=== PATIENT | female | born 1950 | race Caucasian/White ===

== ENCOUNTER → 2018-05-07 | Outpatient (CLI) | payer MEDICARE ==
[2018-05-07 13:45] LABS: Basophils % (A) 1 %; Eosinophils # (A) 0.2 k/uL (0-0.7); Eosinophils % (A) 3 %; HCT 31.9 % (34.0-46.0); HGB 10.4 gm/dL (11.4-16.0); Lymphocytes # (A) 1.6 k/uL (1.0-4.8); Lymphocytes % (A) 27 %; MCHC 32.7 g/dL (31.0-37.0); MCV 91.8 fL (80.0-100.0); Mean Platelet Volume 6.4; Monocytes # (A) 0.4 k/uL (0-1.0); Monocytes % (A) 7 %; Neutrophils # (A) 3.5 k/uL (1.3-7.7); Neutrophils % (A) 60 %; Platelet Count 358 k/uL (150-450); RBC 3.48 m/uL (3.80-5.40); RDW 12.6 % (11.5-15.5); WBC 5.9 k/uL (3.8-10.6)
[2018-05-07 19:30] LABS: Vitamin D 25 Hydroxy 57.9 ng/mL (30.0-100.0)
[2018-05-07 19:56] LABS: ALT 16 U/L (8-44); AST 21 U/L (13-35); Alkaline Phosphatase 76 U/L (41-126); Calcium 9.3 mg/dL (8.7-10.3); Carbon Dioxide 27.5 mmol/L (21.6-31.8); Chloride 107 mmol/L (96-109); Cholesterol 146 mg/dL (0-200); GGT <15 U/L (0-38); Glucose 98 mg/dL (70-110); LDH 129 U/L (120-246); LDL Cholesterol,Calculated 77.6 mg/dL (0.0-131.0); Phosphorus 3.5 mg/dL (2.4-5.1); Potassium 4.5 mmol/L (3.5-5.5); Sodium 141 mmol/L (135-145); Total Bilirubin 0.4 mg/dL (0.3-1.2); Total Protein 6.8 g/dL (6.2-8.2)
[2018-05-07 22:14] LABS: Hemoglobin A1C 6.1 % (4.0-6.0)
== END ==
LOC: LABWHC1 11:50
PROVIDERS: ATTEND Family Medicine
DX: Z00.00 Encounter for general adult medical examination without abnormal findings (principal); G30.9 Alzheimer's disease, unspecified; F41.9 Anxiety disorder, unspecified; J45.909 Unspecified asthma, uncomplicated; E11.9 Type 2 diabetes mellitus without complications; E55.9 Vitamin D deficiency, unspecified
CPT/HCPCS: 36415; 80051; 80061; 82247; 82306; 82310; 82565; 82607; 82947; 82977; 83036; 83615; 84075; 84100; 84155; 84439; 84443; 84450; 84460; 84520; 84550; 85025

== ENCOUNTER → 2018-05-21 | Outpatient (CLI) | payer MEDICARE ==
[2018-05-21 13:12] LABS: Basophils % (A) 0 %; Eosinophils # (A) 0.1 k/uL (0-0.7); Eosinophils % (A) 2 %; HCT 33.3 % (34.0-46.0); HGB 10.6 gm/dL (11.4-16.0); Lymphocytes # (A) 2.1 k/uL (1.0-4.8); Lymphocytes % (A) 30 %; MCH 29.5 pg (25.0-35.0); MCHC 31.9 g/dL (31.0-37.0); MCV 92.5 fL (80.0-100.0); Mean Platelet Volume 6.4; Monocytes # (A) 0.4 k/uL (0-1.0); Monocytes % (A) 6 %; Neutrophils % (A) 59 %; Platelet Count 315 k/uL (150-450); RDW 12.8 % (11.5-15.5); WBC 6.9 k/uL (3.8-10.6)
[2018-05-21 19:53] LABS: Iron Saturation 22.29 (12.00-45.00)
[2018-05-21 20:23] LABS: Folate, Serum >24.0 ng/mL
== END ==
LOC: LABWHC1 11:40
PROVIDERS: ATTEND Family Medicine
DX: D64.9 Anemia, unspecified (principal)
CPT/HCPCS: 36415; 82607; 82746; 83540; 83550; 84466; 85025

== ENCOUNTER → 2019-01-05 | Outpatient (CLI) | payer MEDICARE ==
[2019-01-05 11:43] LABS: HGB 10.9 gm/dL (11.4-16.0); MCH 32.1 pg (25.0-35.0); MCHC 34.2 g/dL (31.0-37.0); Mean Platelet Volume 5.8; Platelet Count 327 k/uL (150-450); RBC 3.41 m/uL (3.80-5.40); RDW 12.6 % (11.5-15.5); WBC 7.7 k/uL (3.8-10.6)
[2019-01-05 22:59] LABS: Albumin 4.6 g/dL (3.80-4.90); Albumin/Globulin Ratio 2.09 (1.60-3.17); Anion Gap 9.7 mmol/L (4.00-12.00); Calcium 10.1 mg/dL (8.7-10.3); Carbon Dioxide 27.3 mmol/L (21.6-31.8); Chol/HDL Ratio 2.83; Globulin 2.2 g/dL (1.6-3.3); Potassium 4.4 mmol/L (3.5-5.5); Total Bilirubin 0.5 mg/dL (0.3-1.2); Total Protein 6.8 g/dL (6.2-8.2)
[2019-01-07 12:15] LABS: Hemoglobin A1C 6.1 % (4.0-6.0)
== END | disposition home or self-care (01) ==
LOC: LABWHC1 11:04
PROVIDERS: ATTEND Family Medicine
DX: E11.9 Type 2 diabetes mellitus without complications (principal); E78.5 Hyperlipidemia, unspecified
CPT/HCPCS: 36415; 80053; 80061; 83036; 85027

== ENCOUNTER → 2019-02-28 | Outpatient (CLI) | payer MEDICARE ==
--- NOTE | 2019-02-28 12:27 | MR ---
EXAMINATION TYPE: MR brain wo/w con DATE OF EXAM: 02/28/2019 12:16 PM COMPARISON: NONE HISTORY: Alzheimers CONTRAST: Patient received 8.5 mL intravenous Gadavist gadolinium contrast. Multiplanar and multispin-echo imaging of the brain was performed . Pre and post contrast enhanced i mages are obtained. The ventricles, basal cisterns and sulci overlying the cerebral convexities are mildly enlarged. There is evidence of mild periventricular white matter ischemic demyelination. Remote deep white matter insults are also noted. No acute edema is seen on diffusion weighted imaging. There is no evidence for midline shift or mass effect. Acute intracranial hemorrhage or extra-axial collection is not evident. No enhancing lesions are seen. The paranasal sinuses and mastoid air cells are well-aerated. IMPRESSION: Age-related atrophic and chronic small vessel ischemic change. No acute intracranial process at this time. No enhancing lesions are seen.
== END ==
LOC: RADMRIMAIN 11:31 → EEVIPCON 11:45
PROVIDERS: ATTEND Psychiatry & Neurology Neurology
DX: G31.1 Senile degeneration of brain, not elsewhere classified (principal); I67.82 Cerebral ischemia
CPT/HCPCS: 70553; A9585

== ENCOUNTER 2019-03-08 05:27 | Emergency (ER) | payer MEDICARE ==
[2019-03-08 05:34] VITALS: RESP 20
--- NOTE | 2019-03-08 06:10 | ED ---
Fall HPI - General Chief Complaint: Fall Stated Complaint: Fall Time Seen by Provider: 03/08/19 05:50 Source: patient, EMS Mode of arrival: EMS Limitations: no limitations - History of Present Illness Initial Comments: 68-year-old female presents emergency Department with chief complaint of fall. Patient states she was getting out of her bed states that she misjudged fell striking her head on the nightstand. Patient hit the posterior aspect of her head there was no loss conscious. Patient does admit that she has pain and the backs ever had in the left side of her head and face. She states there is no trauma to her face. Patient denies any extremity injuries. She does admit that she takes aspirin and states that she's had history of 2 cerebral bleeds in the past. Patient denies any chest pain, shortness breath, dizziness, nausea vomiting. - Related Data Home Medications Medication Instructions Recorded Confirmed ALPRAZolam [Xanax] 0.5 mg PO TID PRN 11/23/17 11/23/17 ARIPiprazole [Abilify] 5 mg PO DAILY 11/23/17 11/23/17 Albuterol Inhaler [Ventolin Hfa 1 - 2 puff INHALATION RT-Q6H PRN 11/23/17 11/23/17 Inhaler] Albuterol Nebulized [Ventolin 2.5 mg INHALATION RT-Q4H PRN 11/23/17 11/23/17 Nebulized] Ascorbic Acid [Vitamin C] 500 mg PO DAILY 11/23/17 11/23/17 Aspirin [Adult Low Dose Aspirin EC] 81 mg PO DAILY 11/23/17 11/23/17 Atorvastatin Calcium [Lipitor] 20 mg PO HS 11/23/17 11/23/17 Butalb/Acetaminophen/Caffeine 1 cap PO Q4H PRN 11/23/17 11/23/17 [Esgic 50-325-40 Capsule] Carvedilol [Coreg] 3.125 mg PO BID 11/23/17 11/23/17 Cholecalciferol (Vitamin D3) 2,000 unit PO DAILY 11/23/17 11/23/17 [Vitamin D3] Cyanocobalamin (Vitamin B-12) 2,000 mcg PO DAILY 11/23/17 11/23/17 [Vitamin B-12] Donepezil [Aricept] 10 mg PO HS 11/23/17 11/23/17 EPINEPHrine (Auto Inject) [Epipen] 0.3 mg IM ONCE PRN 11/23/17 11/23/17 Fluticasone Nasal Mertens [Flonase 1 spray EA NOSTRIL DAILY 11/23/17 11/23/17 Nasal Mertens] Gabapentin [Neurontin] 300 mg PO TID 11/23/17 11/23/17 Isosorbide Mononitrate [Isosorbide 30 mg PO DAILY 11/23/17 11/23/17 Mononitrate ER] Meclizine HCl 50 mg PO DAILY PRN 11/23/17 11/23/17 Memantine [Namenda] 10 mg PO DAILY 11/23/17 11/23/17 Multivit/Folic Acid/Vit K1 1 tab PO DAILY 11/23/17 11/23/17 [One-A-Day Women's 50 Plus Tab] NIFEdipine [Procardia XL] 60 mg PO DAILY 11/23/17 11/23/17 Pioglitazone [Actos] 15 mg PO DAILY 11/23/17 11/23/17 QUEtiapine [SEROquel] 50 mg PO Q6H PRN 11/23/17 11/23/17 Valsartan/Hydrochlorothiazide 1 tab PO DAILY 11/23/17 11/23/17 [Valsartan-Hctz 320-25 mg Tab] buPROPion HCL [Wellbutrin SR] 150 mg PO BID 11/23/17 11/23/17 lamoTRIgine 150 mg PO BID 11/23/17 11/23/17 metFORMIN HCL [Glucophage] 1,000 mg PO BID-W/MEALS 11/23/17 11/23/17 traMADol HCL [Ultram] 50 mg PO Q6H PRN 11/23/17 11/23/17 Previous Rx's Medication Instructions Recorded Ciprofloxacin HCl [Cipro] 500 mg PO Q12H #20 tab 11/27/17 Allergies Allergy/AdvReac Type Severity Reaction Status Date / Time amoxicillin [From Augmentin] Allergy Swelling Verified 03/08/19 05:34 clavulanic acid Allergy Swelling Verified 03/08/19 05:34 [From Augmentin] codeine Allergy Swelling Verified 03/08/19 05:34 Sulfa (Sulfonamide Allergy Rash/Hives Verified 03/08/19 05:34 Antibiotics) tree nut [Nut] Allergy Anaphylaxis Verified 03/08/19 05:34 Review of Systems ROS Statement: Those systems with pertinent positive or pertinent negative responses have been documented in the HPI. ROS Other: All systems not noted in ROS Statement are negative. Past Medical History Past Medical History: Asthma, Dementia, Diabetes Mellitus, Hypertension Additional Past Medical History / Comment(s): tremors, pancreatitis History of Any Multi-Drug Resistant Organisms: None Reported Past Surgical History: Appendectomy, Hysterectomy Additional Past Surgical History / Comment(s): neck surgery Past Anesthesia/Blood Transfusion Reactions: No Reported Reaction Past Psychological History: Anxiety, Depression Smoking Status: Never smoker Past Alcohol Use History: Rare Past Drug Use History: None Reported - Past Family History Mother History Unknown: Yes General Exam Limitations: no limitations General appearance: alert, in no apparent distress Head exam: Present: atraumatic, normocephalic, normal inspection Eye exam: Present: normal appearance, PERRL, EOMI. Absent: scleral icterus, conjunctival injection, periorbital swelling ENT exam: Present: normal exam, normal oropharynx, mucous membranes moist, TM's normal bilaterally Neck exam: Present: normal inspection. Absent: tenderness, meningismus, full ROM (patient in c-collar), lymphadenopathy Respiratory exam: Present: normal lung sounds bilaterally. Absent: respiratory distress, wheezes, rales, rhonchi, stridor Cardiovascular Exam: Present: regular rate, normal rhythm, normal heart sounds. Absent: systolic murmur, diastolic murmur, rubs, gallop, clicks Extremities exam: Present: normal inspection, full ROM, normal capillary refill. Absent: tenderness, pedal edema, joint swelling, calf tenderness Back exam: Present: full ROM. Absent: tenderness, paraspinal tenderness, vertebral tenderness Neurological exam: Present: alert, oriented X3, CN II-XII intact, reflexes normal. Absent: motor sensory deficit Skin exam: Present: warm, dry, intact, normal color. Absent: rash Course Vital Signs 03/08/19 05:28 Temperature 97.7 F Pulse Rate 76 Respiratory 20 Rate Blood Pressure 165/69 O2 Sat by Pulse 99 Oximetry Medical Decision Making - Medical Decision Making CT of the brain, C-spine and negative for acute findings. Patient is not cleari ng intact. Patient will be discharged in stable condition with close follow-up return parameters were discussed. Disposition Clinical Impression: Fall, Head injury Disposition: HOME SELF-CARE Condition: Stable Instructions (If sedation given, give patient instructions): Head Injury (ED) Additional Instructions: Please return to the Emergency Department if symptoms worsen or any other concerns. Is patient prescribed a controlled substance at d/c from ED?: No Referrals: None,Stated [REFERRING] - 1-2 days Time of Disposition: 07:10
--- NOTE | 2019-03-08 06:49 | CT ---
CT HEAD WITHOUT CONTRAST INDICATION: Pain TECHNIQUE: CT acquisition is performed through the brain and cervical spine. Sagittal and coronal reformatted images are provided. No IV contrast is administered. DOSE INFORMATION: DLP 1373 mGy-cm. This CT exam was performed using one or more of the following dose reduction techniques: automated exposure control, adjustment of the mA and/or kV according to patient size, and/or use of iterative reconstruction technique. COMPARISON: MRI brain 02/28/19. FINDINGS: CT head: There is no evidence of acute intracranial hemorrhage. There is a stable 3.8 x 2.5 cm arachnoid cyst in the left middle cranial fossa. There is no midline shift. The crump-white matter differentiation is preserved. Sulci, ventricles, and basal cisterns are normal in size and configuration for patient age. Patchy hypoattenuation in the cerebral white matter is compatible with mild chronic small vessel ischemic disease. The calvarium is intact. The visualized paranasal sinuses and mastoid air cells are clear. CT C-spine: There is straightening of the cervical spine with preservation of vertebral body height and alignment. There is no acute fracture or subluxation. There are degenerative changes at the craniocervical junction and involving the anterior C1-C2 articulation. The patient is status post anterior cervical discectomy and fusion at C4-C5 and C5-C6. There is moderate degenerative disc disease at C6-C7 and C7-T1. There is multilevel facet arthropathy and uncovertebral joint degeneration. There is no high-grade central spinal canal narrowing. There are varying degrees of mild bilateral foraminal narrowing, greatest on the right C5- C6. Prevertebral soft tissues are normal. Lung apices are clear. IMPRESSION: 1. CT head: No evidence of acute intracranial process. 2. CT C-spine: No acute osseous findings.
[2019-03-08 09:31] VITALS: BP 147/78; PULSE 70; TEMP 98.2
== END 2019-03-08 09:31 | disposition home or self-care (01) ==
LOC: EC 05:27
DX: S09.90XA Unspecified injury of head, initial encounter (principal); J45.909 Unspecified asthma, uncomplicated; F03.90 Unspecified dementia, unspecified severity, without behavioral disturbance, psychotic disturbance, mood disturbance, and anxiety; E11.9 Type 2 diabetes mellitus without complications; I10 Essential (primary) hypertension; F32.9 Major depressive disorder, single episode, unspecified; F41.9 Anxiety disorder, unspecified; Z88.0 Allergy status to penicillin; Z88.2 Allergy status to sulfonamides; Z88.5 Allergy status to narcotic agent; Z91.018 Allergy to other foods; Z79.51 Long term (current) use of inhaled steroids; Z79.82 Long term (current) use of aspirin; Z79.84 Long term (current) use of oral hypoglycemic drugs; Z79.899 Other long term (current) drug therapy; Z86.79 Personal history of other diseases of the circulatory system; W06.XXXA Fall from bed, initial encounter; Y93.89 Activity, other specified; Y92.009 Unspecified place in unspecified non-institutional (private) residence as the place of occurrence of the external cause
CPT/HCPCS: 70450; 72125; 99283

== ENCOUNTER → 2020-09-07 | Outpatient (CLI) | payer MEDICARE ==
--- NOTE | 2020-09-07 15:49 | MR ---
EXAMINATION TYPE: MR brain wo/w con DATE OF EXAM: 09/07/2020 COMPARISON: MR brain 02/28/2019 HISTORY: Parkinson's Disease, Alzheimer's Disease, early onset TECHNIQUE: Multiplanar, multisequence images of the brain and brainstem is performed without and with IV contras t, utilizing 7.5 mL intravenous Gadavist . FINDINGS: Diffusion weighted images demonstrate no evidence of a recent infarct or other diffusion ab normality. There is CSF signal focus along the anterior aspect of the middle cranial fossa on the le ft likely representing an arachnoid cyst as on prior exam, lesion measures 4.1 x 2.4 x 3.2 cm. Scatt ered and confluent pericallosal, subcortical and periventricular white matter hyperintensities on inv ersion recovery T2-weighted sequences are again seen similar to prior exam. The ventricular system an d cisternal spaces are normal in size and appearance. The brain volume is stable, small focal area o f encephalomalacia present within the basal ganglia as on prior. Midline structures demonstrate normal morphology. The craniocervical junction appears within normal limits. Post contrast images demonstrate no abnormal enhancement. The dural venous sinuses appear pa tent. The visualized sinuses are clear and the globes are intact. IMPRESSION: No significant interval change. Age-related changes of atrophy and probable chronic small vessel ischemia. Probable arachnoid cyst is stable.
== END | disposition home or self-care (01) ==
LOC: RADMRIMAIN 09:46
PROVIDERS: ATTEND Psychiatry & Neurology Neurology
DX: G20 Parkinson's disease (principal); G30.0 Alzheimer's disease with early onset
CPT/HCPCS: 70553; A9585

== ENCOUNTER 2021-06-16 09:02 | Observation (INO) | payer MEDICARE ==
[2021-06-16] MEDS ORDERED: MECLIZINE 12.5 MG TAB PO STA ×2 (09:20→10:31)
[2021-06-16] MEDS ORDERED: SODIUM CHLORIDE 0.9% 1,000 ML IV STA (09:20)
[2021-06-16] MEDS ORDERED: ONDANSETRON 4 MG/2 ML VIAL IVP STA (09:20)
[2021-06-16] MEDS ORDERED: METOCLOPRAMIDE 5 MG/ML 2 ML VIAL IVP STA (10:31)
[2021-06-16 10:41] LABS: Basophils % (A) 0 %; Eosinophils % (A) 0 %; HCT 32.8 % (34.0-46.0); HGB 11.1 gm/dL (11.4-16.0); Lymphocytes # (A) 0.5 k/uL (1.0-4.8); Lymphocytes % (A) 4 %; MCH 31.8 pg (25.0-35.0); MCV 93.8 fL (80.0-100.0); Mean Platelet Volume 6.7; Monocytes # (A) 0.8 k/uL (0-1.0); Monocytes % (A) 7 %; Neutrophils # (A) 10.5 k/uL (1.3-7.7); Neutrophils % (A) 88 %; Platelet Count 386 k/uL (150-450); RBC 3.49 m/uL (3.80-5.40); RDW 12.8 % (11.5-15.5)
[2021-06-16 10:53] LABS: Albumin 3.8 g/dL (3.5-5.0); Calcium 9.6 mg/dL (8.4-10.2); Potassium 5.2 mmol/L (3.5-5.1); Total Protein 6.6 g/dL (6.3-8.2)
[2021-06-16 11:06] LABS: Toxic Granulation Present
[2021-06-16 11:07] LABS: RBC Morphology Normal
--- NOTE | 2021-06-16 11:29 | CT ---
EXAMINATION TYPE: CT brain wo con DATE OF EXAM: 06/16/2021 COMPARISON: CT dated 03/08/2019 and MRI dated 09/07/2020 HISTORY: Vertigo. CT DLP: 1080.4 mGycm Automated exposure control for dose reduction was used. TECHNIQUE: CT scan of the brain is performed without IV contrast administration. FINDINGS: Persistent sizable arachnoid cyst is seen at the anterior aspect of the left middle cranial fossa ilda suring 22 x 40 x 35 mm and causing compression of the adjacent portion of the left temporal lobe. No obvious uncal herniation. Arterial atherosclerotic calcification most evident involving the V4 segmen ts of the vertebral arteries and the cavernous portions of the internal carotid arteries. No acute intracranial hemorrhage. No gross acute cortical infarct. No midline shift, herniation or ve ntriculomegaly. Unremarkable basal cisterns, sella and CP angles. Unremarkable orbits. Clear visualiz ed paranasal sinuses and mastoid air cells. No aggressive bone lesion. IMPRESSION: Persistent large arachnoid cyst at the anterior aspect of the left middle cranial fossa with mass eff ect on the left temporal lobe as described above. This could be the underlying etiology for the patie nt's complaint. Recommend further elective neurosurgical consultation if not already performed. No other significant intracranial abnormality identified.
--- NOTE | 2021-06-16 11:36 | ED ---
Dizziness HPI - General Chief Complaint: Dizziness Stated Complaint: vertigo Time Seen by Provider: 06/16/21 09:16 Source: patient, EMS, RN notes reviewed Mode of arrival: EMS Limitations: no limitations - History of Present Illness Initial Comments: This a 71-year-old female presents emergency Department with chief complaint chief complaint of severe vertigo. Patient has a history of vertigo states that it's a chronic issue. Patient states today though it is unbearable and states that it's very difficult to ambulate. Patient states that she does see neurology for her Alzheimer's disease, patient has have underlying daily vertigo.. Patient states that she's been very thirsty, decreased oral intake. She states that she feels dehydrated. Denies any vomiting or diarrhea. Patient denies any chest pain shortness breath or palpitations. - Related Data Home Medications Medication Instructions Recorded Confirmed ALPRAZolam [Xanax] 0.5 mg PO DAILY PRN 11/23/17 06/16/21 Ascorbic Acid [Vitamin C] 500 mg PO DAILY 11/23/17 06/16/21 Aspirin [Adult Low Dose Aspirin EC] 81 mg PO HS 11/23/17 06/16/21 Atorvastatin Calcium [Lipitor] 20 mg PO HS 11/23/17 06/16/21 Carvedilol [Coreg] 3.125 mg PO BID 11/23/17 06/16/21 Cyanocobalamin (Vitamin B-12) 1,000 mcg PO DAILY 11/23/17 06/16/21 [Vitamin B-12] Donepezil [Aricept] 10 mg PO HS 11/23/17 06/16/21 EPINEPHrine (Auto Inject) [Epipen] 0.3 mg IM ONCE PRN 11/23/17 06/16/21 Gabapentin [Neurontin] 300 mg PO BID 11/23/17 06/16/21 Memantine [Namenda] 10 mg PO HS 11/23/17 06/16/21 Multivit/Folic Acid/Vit K1 1 tab PO DAILY 11/23/17 06/16/21 [One-A-Day Women's 50 Plus Tab] Pioglitazone [Actos] 15 mg PO DAILY 11/23/17 06/16/21 lamoTRIgine 150 mg PO BID 11/23/17 06/16/21 ARIPiprazole [Abilify] 10 mg PO HS 06/16/21 06/16/21 Albuterol Sulfate [Ventolin HFA] 1 - 2 puff INHALATION RT-Q4H PRN 06/16/21 06/16/21 Benztropine Mesylate 0.5 mg PO DAILY 06/16/21 06/16/21 Biotin 1000 Mcg 1,000 mcg PO DAILY@1700 06/16/21 06/16/21 Carbidopa-Levodopa 25-250 mg 1 tab PO TID 06/16/21 06/16/21 [Sinemet 25-250] Cholecalciferol [Vitamin D3 (25 50 mcg PO HS 06/16/21 06/16/21 Mcg = 1000 Iu)] Docusate [Colace] 100 mg PO BID 06/16/21 06/16/21 Ferrous Sulfate [Feosol] 325 mg PO HS 06/16/21 06/16/21 Irbesartan [Avapro] 300 mg PO DAILY@1400 06/16/21 06/16/21 Melatonin 3 mg PO HS 06/16/21 06/16/21 NIFEdipine [NIFEdipine ER] 90 mg PO DAILY@1400 06/16/21 06/16/21 Spironolactone 25 mg PO HS 06/16/21 06/16/21 buPROPion HCL [Wellbutrin XL] 300 mg PO DAILY 06/16/21 06/16/21 hydroCHLOROthiazide [Hydrodiuril] 25 mg PO DAILY 06/16/21 06/16/21 metFORMIN HCL [Glucophage] 1,000 mg PO BID@0800,1700 06/16/21 06/16/21 Allergies Allergy/AdvReac Type Severity Reaction Status Date / Time amoxicillin [From Augmentin] Allergy Swelling Verified 06/16/21 10:39 clavulanic acid Allergy Swelling Verified 06/16/21 10:39 [From Augmentin] codeine Allergy Swelling Verified 06/16/21 10:39 Penicillins Allergy Unknown Verified 06/16/21 10:39 saccharin Allergy Unknown Verified 06/16/21 10:39 Sulfa (Sulfonamide Allergy Rash/Hives Verified 06/16/21 10:39 Antibiotics) tree nut [Nut] Allergy Anaphylaxis Verified 06/16/21 10:39 Review of Systems ROS Statement: Those systems with pertinent positive or pertinent negative responses have been documented in the HPI. ROS Other: All systems not noted in ROS Statement are negative. Past Medical History Past Medical History: Asthma, Dementia, Diabetes Mellitus, Hypertension Additional Past Medical History / Comment(s): tremors, pancreatitis History of Any Multi-Drug Resistant Organisms: None Reported Past Surgical History: Appendectomy, Hysterectomy Additional Past Surgical History / Comment(s): neck surgery Past Anesthesia/Blood Transfusion Reactions: No Reported Reaction Past Psychological History: Anxiety, Depression Past Alcohol Use History: Rare Past Drug Use History: None Reported - Past Family History Mother History Unknown: Yes General Exam Limitations: no limitations General appearance: alert, in no apparent distress Head exam: Present: atraumatic, normocephalic, normal inspection Eye exam: Present: normal appearance, PERRL, EOMI. Absent: scleral icterus, conjunctival injection, periorbital swelling ENT exam: Present: normal exam, normal oropharynx, mucous membranes moist Neck exam: Present: normal inspection, full ROM. Absent: tenderness, meningismus, lymphadenopathy Respiratory exam: Present: normal lung sounds bilaterally. Absent: respiratory distress, wheezes, rales, rhonchi, stridor Cardiovascular Exam: Present: regular rate, normal rhythm, normal heart sounds. Absent: systolic murmur, diastolic murmur, rubs, gallop, clicks GI/Abdominal exam: Present: soft, normal bowel sounds. Absent: distended, tenderness, guarding, rebound, rigid Neurological exam: Present: alert, oriented X3, CN II-XII intact, reflexes normal. Absent: motor sensory deficit Skin exam: Present: warm, dry, intact, normal color. Absent: rash Course Vital Signs 06/16/21 06/16/21 09:09 10:24 Temperature 98.2 F Pulse Rate 82 80 Respiratory 18 18 Rate Blood Pressure 119/57 105/64 O2 Sat by Pulse 93 L 95 Oximetry Medical Decision Making - Medical Decision Making Patient has had persistent dizziness, she came in for increasing thirst and dizziness. Patient had multiple doses medication no relief. Patient CT shows persistent but no significant changes of her arachnoid cyst. She was updated on his results in which she's had prior MRI and CT but was not aware of this. Patient unable to get up without extreme dizziness I did discuss case with Dr. Baltazar who accepts admission for a Lul, dizziness. - Lab Data Result diagrams: 06/16/21 10:19 06/16/21 10:19 Lab Results 06/16/21 06/16/21 06/16/21 Range/Units 10:19 10:19 10:19 WBC 12.0 H (3.8-10.6) k/uL RBC 3.49 L (3.80-5.40) m/uL Hgb 11.1 L (11.4-16.0) gm/dL Hct 32.8 L (34.0-46.0) % MCV 93.8 (80.0-100.0) fL MCH 31.8 (25.0-35.0) pg MCHC 34.0 (31.0-37.0) g/dL RDW 12.8 (11.5-15.5) % Plt Count 386 (150-450) k/uL MPV 6.7 Neutrophils % 88 % Lymphocytes % 4 % Monocytes % 7 % Eosinophils % 0 % Basophils % 0 % Neutrophils # 10.5 H (1.3-7.7) k/uL Lymphocytes # 0.5 L (1.0-4.8) k/uL Monocytes # 0.8 (0-1.0) k/uL Eosinophils # 0.0 (0-0.7) k/uL Basophils # 0.0 (0-0.2) k/uL Manual Slide Review Performed Toxic Granulation Present RBC Morphology Normal Sodium 131 L (137-145) mmol/L Potassium 5.2 H (3.5-5.1) mmol/L Chloride 97 L (98-107) mmol/L Carbon Dioxide 25 (22-30) mmol/L Anion Gap 9 mmol/L BUN 44 H (7-17) mg/dL Creatinine 1.68 H (0.52-1.04) mg/dL Est GFR (CKD-EPI)AfAm 35 (>60 ml/min/1.73 sqM) Est GFR (CKD-EPI)NonAf 30 (>60 ml/min/1.73 sqM) Glucose 158 H (74-99) mg/dL Calcium 9.6 (8.4-10.2) mg/dL Total Bilirubin 1.0 (0.2-1.3) mg/dL AST 322 H (14-36) U/L ALT 23 (4-34) U/L Alkaline Phosphatase 126 (38-126) U/L Troponin I <0.012 (0.000-0.034) ng/mL Total Protein 6.6 (6.3-8.2) g/dL Albumin 3.8 (3.5-5.0) g/dL Disposition Clinical Impression: Acute kidney injury, Dehydration, Dizziness Disposition: ADMITTED IP TO THIS HOSP Condition: Fair Referrals: Marilee Rendon DO [Primary Care Provider] - 1-2 days Time of Disposition: 13:15
[2021-06-16] MEDS ORDERED: ONDANSETRON 4 MG/2 ML VIAL IVP PRN (13:16)
[2021-06-16] MEDS ORDERED: NALOXONE 0.4 MG/ML 1 ML VIAL IV PRN (13:16)
[2021-06-16] MEDS ORDERED: ACETAMINOPHEN TAB 325 MG TAB PO PRN (13:16)
[2021-06-16] MEDS ORDERED: ALPRAZolam 0.5 MG TAB PO PRN (13:18)
[2021-06-16] MEDS: metFORMIN 500 MG TAB PO SCH ×2 (16:04→16:05)
[2021-06-16] MEDS: NIFEdipine XL 90 MG TAB.ER.24 PO SCH (16:04)
[2021-06-16] MEDS: ARIPiprazole 10 MG TAB PO SCH (16:05)
[2021-06-16] MEDS: LOSARTAN 50 MG TAB PO SCH (16:05)
[2021-06-16] MEDS: carvediloL 3.125 MG TAB PO SCH (16:05)
[2021-06-16] MEDS: CARBIDOPA-LEVODOPA 25-250 MG 1 EACH TAB PO SCH ×2 (16:05→20:49)
[2021-06-16] MEDS: SODIUM CHLORIDE 0.9% 1,000 ML IV SCH (16:06)
[2021-06-16] MEDS ORDERED: ALBUTEROL NEBULIZED 2.5 MG/3 ML INHALATION PRN (16:37)
[2021-06-16] MEDS ORDERED: MECLIZINE 25 MG TAB PO PRN (16:52)
[2021-06-16] MEDS ORDERED: LORazepam 0.5 MG TAB PO PRN (16:52)
--- NOTE | 2021-06-16 16:54 | P.HPIM ---
History of Present Illness H&P Date: 06/16/21 Chief Complaint: Vertigo 71-year-old woman with a history of Alzheimer's dementia, arachnoid cyst in the brain, hypertension, diabetes, hyperlipidemia Parkinson's, reactive airway disease, depression presented with vertigo. Patient tells me that she's had vertigo for quite some time, however in the last 1-2 weeks it's been getting worse. It gets particularly worse with movement, specifically to the right side. In addition she's had loss of appetite in the last week. She has been able to keep up with her water intake, has trouble poopingconstipation. She does not have any trouble urinating or ambulating. She denies fevers, chills, nausea, vomiting, chest pain, palpitations, syncope, presyncope, abdominal pain, dysuria, dyschezia, diarrhea, numbness/weakness of extremities. In the emergency room, patient is afebrile, 119/57, heart rate 82, 93% on room air. CBC is remarkable for mild leukocytosis at 12, mild anemia at 11.1. Chemistries are remarkable for hyponatremia to 132, potassium of 5.2, chloride of 97. BUN/creatinine is 44/1.7, with a baseline of 1. LFTs are remarkable for an AST of 322, ALT of 23. Initial troponin is negative. EKG demonstrates normal sinus rhythm without ischemic changes. Brain CT redemonstrates large 22 mm x 40 mm x 35 mm arachnoid cyst causing compression of the adjacent portion of the left temporal lobe with no obvious uncal herniation, this is unchanged relative to computed tomography scan dated 03/08 as well as MRI dated 09/07. All Systems reviewed and pertinent positives and negatives noted in HPI, all other symptoms are negative Gen: awake, alert HEENT: normocephalic, atraumatic, good hearing acuity, moist mucous membranes Resp: good air exchange, breathing comfortably with no accessory muscle use CVS: good distal perfusion x 4, GI: soft, NTTP, ND : no SPT, no CVAT, blair catheter not present MSK: no pitting edema, no clubbing Neuro: non-focal, moving all extremities Psych: cooperative, euthymic mood Labs and imaging reviewed as above Assessment/plan: Vertigo Arachnoid cyst in the brain -Admit to observation -Meclizine when necessary -Can try Ativan when necessary -No hearing loss to suggest Mnire's disease -PT consult to try BPPV maneuvers -Doubt persistent arachnoid cyst is causing acute symptoms since there's been no change in imaging since the last 3 years -Outpatient neurosurgery referral -orthostatics BID Acute kidney injury -IV fluids -Renal ultrasound Alzheimer's dementia Hypertension Diabetes Hyperlipidemia Parkinson's Reactive airway disease Depression -Home medications reviewed and reconciled Patient is a no code DVT prophylaxis with heparin 3 times a day Past Medical History Past Medical History: Asthma, Dementia, Diabetes Mellitus, Hyperlipidemia, Hypertension, Pneumonia, Syncope Additional Past Medical History / Comment(s): Chronic vertigo if pt lies on her sides, NIDDM type II, neuropathy bilateral hands and occasionally in feet, "preparkinsonism", tremors, cardiac murmur, pancreatitis, R shoulder discomfort since injury 2 weeks ago, anemia, rare UTI, constipation. History of Any Multi-Drug Resistant Organisms: None Reported Past Surgical History: Appendectomy, Cholecystectomy, Hysterectomy, Orthopedic Surgery Additional Past Surgical History / Comment(s): Eploratory with appendectomy, cervical fusion. Past Anesthesia/Blood Transfusion Reactions: No Reported Reaction Past Psychological History: Anxiety, Bipolar, Depression Additional Psychological History / Comment(s): Pt resides at [facility]. Patient states that Stephania Ortiz is not her legal guardian but is her DPOA and also her [id number]. Can Line Operator contacted probate court and spoke to Tracei who states there is no legal guardianship on file for pt. Pt is oriented x 3. Pt ambulates with a walker. She does her own ADLS. Staff manage her medications. She goes to the dining room for meals. 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 She manages some of their activities. Smoking Status: Never smoker Past Alcohol Use History: Rare Past Drug Use History: None Reported - Past Family History Mother History Unknown: Yes Family Medical History: Coronary Artery Disease (CAD), Eye Disorder Additional Family Medical History / Comment(s): Mother of heart problems. She had glaucoma. Father Family Medical History: Diabetes Mellitus Additional Family Medical History / Comment(s): Father of diabetic complications. Medications and Allergies Home Medications Medication Instructions Recorded Confirmed Type ALPRAZolam [Xanax] 0.5 mg PO DAILY PRN 11/23/17 06/16/21 History Ascorbic Acid [Vitamin C] 500 mg PO DAILY 11/23/17 06/16/21 History Aspirin [Adult Low Dose Aspirin EC] 81 mg PO HS 11/23/17 06/16/21 History Atorvastatin Calcium [Lipitor] 20 mg PO HS 11/23/17 06/16/21 History Carvedilol [Coreg] 3.125 mg PO BID 11/23/17 06/16/21 History Cyanocobalamin (Vitamin B-12) 1,000 mcg PO DAILY 11/23/17 06/16/21 History [Vitamin B-12] Donepezil [Aricept] 10 mg PO HS 11/23/17 06/16/21 History EPINEPHrine (Auto Inject) [Epipen] 0.3 mg IM ONCE PRN 11/23/17 06/16/21 History Gabapentin [Neurontin] 300 mg PO BID 11/23/17 06/16/21 History Memantine [Namenda] 10 mg PO HS 11/23/17 06/16/21 History Multivit/Folic Acid/Vit K1 1 tab PO DAILY 11/23/17 06/16/21 History [One-A-Day Women's 50 Plus Tab] Pioglitazone [Actos] 15 mg PO DAILY 11/23/17 06/16/21 History lamoTRIgine 150 mg PO BID 11/23/17 06/16/21 History ARIPiprazole [Abilify] 10 mg PO HS 06/16/21 06/16/21 History Albuterol Sulfate [Ventolin HFA] 1 - 2 puff INHALATION RT-Q4H PRN 06/16/21 06/16/21 History Benztropine Mesylate 0.5 mg PO DAILY 06/16/21 06/16/21 History Biotin 1000 Mcg 1,000 mcg PO DAILY@1700 06/16/21 06/16/21 History Carbidopa-Levodopa 25-250 mg 1 tab PO TID 06/16/21 06/16/21 History [Sinemet 25-250] Cholecalciferol [Vitamin D3 (25 50 mcg PO HS 06/16/21 06/16/21 History Mcg = 1000 Iu)] Docusate [Colace] 100 mg PO BID 06/16/21 06/16/21 History Ferrous Sulfate [Feosol] 325 mg PO HS 06/16/21 06/16/21 History Irbesartan [Avapro] 300 mg PO DAILY@1400 06/16/21 06/16/21 History Melatonin 3 mg PO HS 06/16/21 06/16/21 History NIFEdipine [NIFEdipine ER] 90 mg PO DAILY@1400 06/16/21 06/16/21 History Spironolactone 25 mg PO HS 06/16/21 06/16/21 History buPROPion HCL [Wellbutrin XL] 300 mg PO DAILY 06/16/21 06/16/21 History hydroCHLOROthiazide [Hydrodiuril] 25 mg PO DAILY 06/16/21 06/16/21 History metFORMIN HCL [Glucophage] 1,000 mg PO BID@0800,1700 06/16/21 06/16/21 History Allergies Allergy/AdvReac Type Severity Reaction Status Date / Time amoxicillin [From Augmentin] Allergy Swelling Verified 06/16/21 10:39 clavulanic acid Allergy Swelling Verified 06/16/21 10:39 [From Augmentin] codeine Allergy Swelling Verified 06/16/21 10:39 Penicillins Allergy Unknown Verified 06/16/21 10:39 saccharin Allergy Unknown Verified 06/16/21 10:39 Sulfa (Sulfonamide Allergy Rash/Hives Verified 06/16/21 10:39 Antibiotics) tree nut [Nut] Allergy Anaphylaxis Verified 06/16/21 10:39 Physical Exam Osteopathic Statement: *. No significant issues noted on an osteopathic structural exam other than those noted in the History and Physical/Consult. Vitals: Vital Signs Temp Pulse Resp BP Pulse Ox 06/16/21 16:06 74 18 92/61 98 06/16/21 13:03 68 18 106/48 97 06/16/21 10:24 80 18 105/64 95 06/16/21 09:09 98.2 F 82 18 119/57 93 L Intake and Output 06/16/21 06/16/21 06/16/21 06:59 14:59 22:59 Other: Weight 77.564 kg Results CBC & Chem 7: 06/16/21 10:19 06/16/21 10:19 Labs: Abnormal Lab Results - Last 24 Hours (Table) 06/16/21 06/16/21 Range/Units 10:19 10:19 WBC 12.0 H (3.8-10.6) k/uL RBC 3.49 L (3.80-5.40) m/uL Hgb 11.1 L (11.4-16.0) gm/dL Hct 32.8 L (34.0-46.0) % Neutrophils # 10.5 H (1.3-7.7) k/uL Lymphocytes # 0.5 L (1.0-4.8) k/uL Sodium 131 L (137-145) mmol/L Potassium 5.2 H (3.5-5.1) mmol/L Chloride 97 L (98-107) mmol/L BUN 44 H (7-17) mg/dL Creatinine 1.68 H (0.52-1.04) mg/dL Glucose 158 H (74-99) mg/dL AST 322 H (14-36) U/L Thrombosis Risk Factor Assmnt - Choose All That Apply Any of the Below Risk Factors Present?: Yes Each Factor Represents 1 point: Obesity (BMI >25) Other Risk Factors: Yes Each Risk Factor Represents 2 Points: Age 61-74 years Other congenital or acquired thrombophilia - If yes, enter type in comment: No Thrombosis Risk Factor Assessment Total Risk Factor Score: 3 Thrombosis Risk Factor Assessment Level: Moderate Risk
[2021-06-16] MEDS ORDERED: BIOTIN 1000 MCG PO SCH (17:00)
[2021-06-16] MEDS: CHOLECALCIFEROL 25 MCG (1000 IU) TABLET PO SCH (20:48)
[2021-06-16] MEDS: DOCUSATE 100 MG CAP PO SCH (20:48)
[2021-06-16] MEDS: ASPIRIN 81 MG PO SCH (20:48)
[2021-06-16] MEDS: MELATONIN 3 MG TABLET PO SCH (20:48)
[2021-06-16] MEDS: GABAPENTIN 300 MG CAP PO SCH (20:48)
[2021-06-16] MEDS: ATORVASTATIN 20 MG TAB PO SCH (20:48)
[2021-06-16] MEDS: lamoTRIgine 100 MG TAB PO SCH (20:49)
[2021-06-16] MEDS: MEMANTINE 10 MG TAB PO SCH (20:49)
[2021-06-16] MEDS: HEPARIN SODIUM,PORCINE/PF 5,000 UNIT/0.5 ML SYRINGE SQ SCH (20:49)
[2021-06-16] MEDS: SPIRONOLACTONE 25 MG TAB PO SCH (20:49)
[2021-06-16] MEDS: FERROUS SULFATE 325 MG TAB PO SCH (20:49)
[2021-06-16] MEDS: DONEPEZIL 10 MG TAB PO SCH (20:49)
[2021-06-17] MEDS: SODIUM CHLORIDE 0.9% 1,000 ML IV SCH ×2 (02:46→15:45)
[2021-06-17] MEDS: HEPARIN SODIUM,PORCINE/PF 5,000 UNIT/0.5 ML SYRINGE SQ SCH ×3 (08:56→22:09)
[2021-06-17] MEDS: lamoTRIgine 100 MG TAB PO SCH ×2 (08:56→21:45)
[2021-06-17] MEDS: buPROPion XL 300 MG TAB.ER.24H PO SCH (08:58)
[2021-06-17] MEDS: ASCORBIC ACID 500 MG TAB PO SCH (08:58)
[2021-06-17] MEDS: hydroCHLOROthiazide 25 MG TAB PO SCH (08:58)
[2021-06-17] MEDS: PIOGLITAZONE 15 MG TAB PO SCH (08:59)
[2021-06-17] MEDS: DOCUSATE 100 MG CAP PO SCH ×2 (08:59→21:45)
[2021-06-17] MEDS: CARBIDOPA-LEVODOPA 25-250 MG 1 EACH TAB PO SCH ×3 (09:00→21:46)
[2021-06-17] MEDS: GABAPENTIN 300 MG CAP PO SCH ×2 (09:00→21:45)
[2021-06-17] MEDS: MULTIVITAMINS, THERA 1 EACH TAB PO SCH (09:00)
[2021-06-17] MEDS: carvediloL 3.125 MG TAB PO SCH ×2 (09:00→17:23)
[2021-06-17] MEDS: BENZTROPINE MESYLATE 0.5 MG TAB PO SCH (09:01)
[2021-06-17] MEDS: CYANOCOBALAMIN 500 MCG TAB PO SCH (09:01)
[2021-06-17 09:13] LABS: HCT 30.4 % (37.2-46.3); HGB 9.9 g/dL (12.0-15.0); MCH 31.1 pg (27.0-32.0); MCHC 32.6 g/dL (32.0-37.0); MCV 95.6 fL (80.0-97.0); Mean Platelet Volume 9.6 fL (9.5-12.2); NRBC Per 100 WBC 0 /100 WBCS (0.0-0.0); Platelet Count 330 X 10*3/uL (140-440); RBC 3.18 X 10*6/uL (4.10-5.20); RDW 12.6 % (11.5-14.5); WBC 13.11 X 10*3/uL (4.50-10.00)
[2021-06-17 09:22] LABS: African American GFR (CKD) 40.2 (60.0-200.0); Anion Gap 11.1 mmol/L (10.00-18.00); BUN/Creat Ratio 32.2 Ratio (12.00-20.00); Blood Urea Nitrogen 48.3 mg/dL (9.0-27.0); Calcium 9.1 mg/dL (8.7-10.3); Carbon Dioxide 21.9 mmol/L (20.0-27.5); Magnesium 2.2 mg/dL (1.5-2.4); Non-African American GFR(CKD) 34.7 (60.0-200.0); Potassium 4.9 mmol/L (3.5-5.5)
[2021-06-17 10:32] LABS: Basophils # (A) 0.03 X 10*3/uL (0.00-0.10); Basophils % (A) 0.2 %; Eosinophils # (A) 0.11 X 10*3/uL (0.04-0.35); Eosinophils % (A) 0.8 %; Immature Grans, Automated 0.4 %; Lymphocytes % (A) 11.4 %; Monocytes # (A) 1.48 X 10*3/uL (0.20-1.00); Monocytes % (A) 11.3 %; Neutrophils # (A) 9.94 X 10*3/uL (1.80-7.70); Neutrophils % (A) 75.9 %
[2021-06-17 10:33] LABS: RBC Morphology NORMAL
[2021-06-17 14:00] VITALS: BMI 31.2
[2021-06-17] MEDS: LOSARTAN 50 MG TAB PO SCH (15:38)
[2021-06-17] MEDS: NIFEdipine XL 90 MG TAB.ER.24 PO SCH (15:38)
[2021-06-17 17:17] LABS: Appearance,Urine Cloudy (Clear); Bacteria,Urine Occasional /hpf; Bilirubin,Urine Negative (Negative); Blood,Urine Negative (Negative); Color,Urine Yellow; Glucose,Urine (UA) Negative (Negative); Hyaline Casts,Urine 1 /lpf (0-2); Ketones,Urine Negative (Negative); Leukocyte Esterase,Urine Large (Negative); Mucus,Urine Rare /hpf; Nitrite,Urine Negative (Negative); Protein,Urine Negative (Negative); RBC,Urine 5 /hpf (0-5); Specific Gravity,Urine 1.014 (1.001-1.035); Squamous Epithelial Cell,Urine 1 /hpf (0-4); Urobilinogen,Urine <2.0 mg/dL (<2.0); WBC,Urine >182 /hpf (0-5)
--- NOTE | 2021-06-17 17:19 | P.PN ---
Subjective Progress Note Date: 06/17/21 Pt is doing well today. Vertigo is gone, still has double vision. Ambulated well with PT, needed supervision or minimal assist. Recommending home with PT. Gen: awake, alert HEENT: normocephalic, atraumatic, good hearing acuity, moist mucous membranes Resp: good air exchange, breathing comfortably with no accessory muscle use CVS: good distal perfusion x 4, GI: soft, NTTP, ND : no SPT, no CVAT, blair catheter not present MSK: no pitting edema, no clubbing Neuro: non-focal, moving all extremities Psych: cooperative, euthymic mood Labs and imaging reviewed as above Assessment/plan: Vertigo Double Vision Arachnoid cyst in the brain -Admit to observation -Meclizine when necessary -Can try Ativan when necessary -No hearing loss to suggest Mnire's disease -PT consult to try BPPV maneuvers -Doubt persistent arachnoid cyst is causing acute symptoms since there's been no change in imaging since the last 3 years -Outpatient neurosurgery referral -orthostatics BID Acute kidney injury, improving -IV fluids -Renal ultrasound Alzheimer's dementia Hypertension Diabetes Hyperlipidemia Parkinson's Reactive airway disease Depression -Home medications reviewed and reconciled Patient is a no code DVT prophylaxis with heparin 3 times a day Objective - Vital Signs Vital signs: Vital Signs Temp 97.9 F 06/17/21 15:00 Pulse 93 06/17/21 15:00 Resp 17 06/17/21 15:00 BP 128/80 06/17/21 15:00 Pulse Ox 93 L 06/17/21 15:00 Intake & Output 06/16/21 06/17/21 06/17/21 18:59 06:59 18:59 Intake Total 476 Balance 476 Weight 77.564 kg 77.564 kg Intake: Oral 476 Other: Voiding Method Diaper # Voids 1 2 - Labs CBC & Chem 7: 06/17/21 05:44 06/17/21 05:44 Labs: Abnormal Lab Results - Last 24 Hours (Table) 06/17/21 06/17/21 06/17/21 Range/Units 05:44 05:44 17:00 WBC 13.11 H (4.50-10.00) X 10*3/uL RBC 3.18 L (4.10-5.20) X 10*6/uL Hgb 9.9 L (12.0-15.0) g/dL Hct 30.4 L (37.2-46.3) % Immature Gran # 0.05 H (0.00-0.04) X 10*3/uL Neutrophils # 9.94 H (1.80-7.70) X 10*3/uL Monocytes # 1.48 H (0.20-1.00) X 10*3/uL Sodium 133 L (135-145) mmol/L BUN 48.3 H (9.0-27.0) mg/dL Est GFR (CKD-EPI)AfAm 40.2 L (60.0-200.0) Est GFR (CKD-EPI)NonAf 34.7 L (60.0-200.0) BUN/Creatinine Ratio 32.20 H (12.00-20.00) Ratio Glucose 130 H (70-110) mg/dL Urine Appearance Cloudy H (Clear) Ur Leukocyte Esterase Large H (Negative) Urine WBC >182 H (0-5) /hpf Urine WBC Clumps Moderate H (None) /hpf Urine Bacteria Occasional H (None) /hpf Urine Mucus Rare H (None) /hpf
[2021-06-17] MEDS: metFORMIN 500 MG TAB PO SCH (17:23)
[2021-06-17 21:34] VITALS: RESP 16
[2021-06-17] MEDS: ARIPiprazole 10 MG TAB PO SCH (21:44)
[2021-06-17] MEDS: CHOLECALCIFEROL 25 MCG (1000 IU) TABLET PO SCH (21:44)
[2021-06-17] MEDS: ATORVASTATIN 20 MG TAB PO SCH (21:44)
[2021-06-17] MEDS: ASPIRIN 81 MG PO SCH (21:44)
[2021-06-17] MEDS: FERROUS SULFATE 325 MG TAB PO SCH (21:45)
[2021-06-17] MEDS: DONEPEZIL 10 MG TAB PO SCH (21:45)
[2021-06-17] MEDS: MEMANTINE 10 MG TAB PO SCH (21:46)
[2021-06-17] MEDS: SPIRONOLACTONE 25 MG TAB PO SCH (21:46)
[2021-06-17] MEDS: MELATONIN 3 MG TABLET PO SCH (22:08)
[2021-06-18] MEDS: SODIUM CHLORIDE 0.9% 1,000 ML IV SCH (02:53)
[2021-06-18 07:49] VITALS: BP 101/56; PULSE 77; TEMP 97.9
[2021-06-18] MEDS: lamoTRIgine 100 MG TAB PO SCH (08:22)
[2021-06-18] MEDS: HEPARIN SODIUM,PORCINE/PF 5,000 UNIT/0.5 ML SYRINGE SQ SCH (08:22)
[2021-06-18] MEDS: DOCUSATE 100 MG CAP PO SCH (08:22)
[2021-06-18] MEDS: metFORMIN 500 MG TAB PO SCH (08:23)
[2021-06-18] MEDS: PIOGLITAZONE 15 MG TAB PO SCH (08:23)
[2021-06-18] MEDS: buPROPion XL 300 MG TAB.ER.24H PO SCH (08:23)
[2021-06-18] MEDS: CYANOCOBALAMIN 500 MCG TAB PO SCH (08:23)
[2021-06-18] MEDS: hydroCHLOROthiazide 25 MG TAB PO SCH (08:24)
[2021-06-18] MEDS: ASCORBIC ACID 500 MG TAB PO SCH (08:24)
[2021-06-18] MEDS: GABAPENTIN 300 MG CAP PO SCH (08:24)
[2021-06-18] MEDS: carvediloL 3.125 MG TAB PO SCH (08:25)
[2021-06-18] MEDS: MULTIVITAMINS, THERA 1 EACH TAB PO SCH (08:25)
[2021-06-18] MEDS: BENZTROPINE MESYLATE 0.5 MG TAB PO SCH (08:25)
[2021-06-18] MEDS: CARBIDOPA-LEVODOPA 25-250 MG 1 EACH TAB PO SCH (08:25)
[2021-06-18] MEDS: NIFEdipine XL 90 MG TAB.ER.24 PO SCH (13:27)
[2021-06-18] MEDS: LOSARTAN 50 MG TAB PO SCH (13:28)
--- NOTE | 2021-06-18 15:33 | P.DS ---
Providers Date of admission: 06/16/21 12:14 Expected date of discharge: 06/18/21 Attending physician: Armando Baltazar MD Primary care physician: Marilee Rendon DO Hospital Course: 71-year-old woman with a history of Alzheimer's dementia, arachnoid cyst in the brain, hypertension, diabetes, hyperlipidemia Parkinson's, reactive airway disease, depression presented with vertigo. In the emergency room, patient is afebrile, 119/57, heart rate 82, 93% on room air. CBC is remarkable for mild leukocytosis at 12, mild anemia at 11.1. Chemistries are remarkable for hyponatremia to 132, potassium of 5.2, chloride of 97. BUN/creatinine is 44/1.7, with a baseline of 1. LFTs are remarkable for an AST of 322, ALT of 23. Initial troponin is negative. EKG demonstrates normal sinus rhythm without ischemic changes. Brain CT redemonstrates large 22 mm x 40 mm x 35 mm arachnoid cyst causing compression of the adjacent portion of the left temporal lobe with no obvious uncal herniation, this is unchanged relative to computed tomography scan dated 03/08 as well as MRI dated 09/07. Vertigo Arachnoid cyst in the brain -Admitted to observation. Pt treated with meclizine PRN and ativan PRN. Seen by PT and patient ambulated well with their assistance, did start complaining of double vision as well. Symptoms did improve through hospital course and patient was discharged home. Large arachnoid cyst was felt to be contributing, and I counseled the patient and family that she would need neurosurgical referral as an outpatient. Prescribed meclizine on discharge. Acute kidney injury -IV fluids provided and kidney function improved. Alzheimer's dementia Hypertension Diabetes Hyperlipidemia Parkinson's Reactive airway disease Depression -Home medications reviewed and reconciled, changes noted above. Patient is a no code DVT prophylaxis with heparin 3 times a day Gen: awake, alert HEENT: normocephalic, atraumatic, good hearing acuity, moist mucous membranes Resp: good air exchange, breathing comfortably with no accessory muscle use CVS: good distal perfusion x 4, GI: soft, NTTP, ND : no SPT, no CVAT, blair catheter not present MSK: no pitting edema, no clubbing Neuro: non-focal, moving all extremities Psych: cooperative, euthymic mood Patient Condition at Discharge: Good Plan - Discharge Summary Discharge Rx Participant: No New Discharge Prescriptions: New Acetaminophen Tab [Tylenol] 650 mg PO Q6HR PRN tab PRN Reason: Mild Pain Or Fever > 100.5 Meclizine [Antivert] 25 mg PO TID PRN #30 tab PRN Reason: Vertigo Continue Ascorbic Acid [Vitamin C] 500 mg PO DAILY ALPRAZolam [Xanax] 0.5 mg PO DAILY PRN PRN Reason: Anxiety Memantine [Namenda] 10 mg PO HS Gabapentin [Neurontin] 300 mg PO BID EPINEPHrine (Auto Inject) [Epipen] 0.3 mg IM ONCE PRN PRN Reason: Anaphylaxis Donepezil [Aricept] 10 mg PO HS Atorvastatin Calcium [Lipitor] 20 mg PO HS Pioglitazone [Actos] 15 mg PO DAILY lamoTRIgine 150 mg PO BID Multivit/Folic Acid/Vit K1 [One-A-Day Women's 50 Plus Tab] 1 tab PO DAILY Cyanocobalamin (Vitamin B-12) [Vitamin B-12] 1,000 mcg PO DAILY Carvedilol [Coreg] 3.125 mg PO BID Aspirin [Adult Low Dose Aspirin EC] 81 mg PO HS Biotin 1000 Mcg 1,000 mcg PO DAILY@1700 Albuterol Sulfate [Ventolin HFA] 1 - 2 puff INHALATION RT-Q4H PRN PRN Reason: Shortness Of Breath Benztropine Mesylate 0.5 mg PO DAILY Carbidopa-Levodopa 25-250 mg [Sinemet 25-250 mg] 1 tab PO TID Docusate [Colace] 100 mg PO BID Ferrous Sulfate [Iron (65 MG Elemental)] 325 mg PO HS Irbesartan [Avapro] 300 mg PO DAILY@1400 Melatonin 3 mg PO HS ARIPiprazole [Abilify] 10 mg PO HS buPROPion HCL [Wellbutrin XL] 300 mg PO DAILY Cholecalciferol [Vitamin D3 (25 Mcg = 1000 Iu)] 50 mcg PO HS hydroCHLOROthiazide [Hydrodiuril] 25 mg PO DAILY metFORMIN HCL [Glucophage] 1,000 mg PO BID@0800,1700 NIFEdipine [NIFEdipine ER] 90 mg PO DAILY@1400 Spironolactone 25 mg PO HS Discharge Medication List ALPRAZolam [Xanax] 0.5 mg PO DAILY PRN 11/23/17 [History] Ascorbic Acid [Vitamin C] 500 mg PO DAILY 11/23/17 [History] Aspirin [Adult Low Dose Aspirin EC] 81 mg PO HS 11/23/17 [History] Atorvastatin Calcium [Lipitor] 20 mg PO HS 11/23/17 [History] Carvedilol [Coreg] 3.125 mg PO BID 11/23/17 [History] Cyanocobalamin (Vitamin B-12) [Vitamin B-12] 1,000 mcg PO DAILY 11/23/17 [History] Donepezil [Aricept] 10 mg PO HS 11/23/17 [History] EPINEPHrine (Auto Inject) [Epipen] 0.3 mg IM ONCE PRN 11/23/17 [History] Gabapentin [Neurontin] 300 mg PO BID 11/23/17 [History] Memantine [Namenda] 10 mg PO HS 11/23/17 [History] Multivit/Folic Acid/Vit K1 [One-A-Day Women's 50 Plus Tab] 1 tab PO DAILY 11/23/17 [History] Pioglitazone [Actos] 15 mg PO DAILY 11/23/17 [History] lamoTRIgine 150 mg PO BID 11/23/17 [History] ARIPiprazole [Abilify] 10 mg PO HS 06/16/21 [History] Albuterol Sulfate [Ventolin HFA] 1 - 2 puff INHALATION RT-Q4H PRN 06/16/21 [History] Benztropine Mesylate 0.5 mg PO DAILY 06/16/21 [History] Biotin 1000 Mcg 1,000 mcg PO DAILY@1700 06/16/21 [History] Carbidopa-Levodopa 25-250 mg [Sinemet 25-250 mg] 1 tab PO TID 06/16/21 [History] Cholecalciferol [Vitamin D3 (25 Mcg = 1000 Iu)] 50 mcg PO HS 06/16/21 [History] Docusate [Colace] 100 mg PO BID 06/16/21 [History] Ferrous Sulfate [Iron (65 MG Elemental)] 325 mg PO HS 06/16/21 [History] Irbesartan [Avapro] 300 mg PO DAILY@1400 06/16/21 [History] Melatonin 3 mg PO HS 06/16/21 [History] NIFEdipine [NIFEdipine ER] 90 mg PO DAILY@1400 06/16/21 [History] Spironolactone 25 mg PO HS 06/16/21 [History] buPROPion HCL [Wellbutrin XL] 300 mg PO DAILY 06/16/21 [History] hydroCHLOROthiazide [Hydrodiuril] 25 mg PO DAILY 06/16/21 [History] metFORMIN HCL [Glucophage] 1,000 mg PO BID@0800,1700 06/16/21 [History] Acetaminophen Tab [Tylenol] 650 mg PO Q6HR PRN tab 06/17/21 [Rx] Meclizine [Antivert] 25 mg PO TID PRN #30 tab 06/18/21 [Rx] Follow up Appointment(s)/Referral(s): Marilee Rendon DO [Primary Care Provider] - 1-2 days Discharge Disposition: HOME WITH HOME HEALTH SERVICES
== END 2021-06-18 14:12 | disposition home health service (06) ==
LOC: EC 09:02 → EEVIPCON 12:14 → 6NMEDSUR 12:14
PROVIDERS: ADMIT Internal Medicine; ATTEND Internal Medicine
DX: N17.9 Acute kidney failure, unspecified (principal); E86.0 Dehydration; G93.0 Cerebral cysts; G30.9 Alzheimer's disease, unspecified; I10 Essential (primary) hypertension; E11.9 Type 2 diabetes mellitus without complications; E78.5 Hyperlipidemia, unspecified; R42 Dizziness and giddiness; G20 Parkinson's disease; F32.A Depression, unspecified; J45.909 Unspecified asthma, uncomplicated; Z79.84 Long term (current) use of oral hypoglycemic drugs; Z79.82 Long term (current) use of aspirin; Z79.899 Other long term (current) drug therapy; Z88.0 Allergy status to penicillin; Z88.2 Allergy status to sulfonamides; Z88.5 Allergy status to narcotic agent; Z91.018 Allergy to other foods
CPT/HCPCS: 96372 ×3; 96374; 96375; 99285; 36415; 93005; 97112; 97530; 97162; 97166; 80053; 80048; 83735; 84484; 85025 ×2; 81001; 87086; 70450; G0378 ×3; J2765; J2405; J1644 ×3

== ENCOUNTER 2022-01-06 10:38 | Emergency (ER) | payer MEDICARE ==
[2022-01-06 10:50] VITALS: TEMP 99.4
[2022-01-06 11:17] LABS: Calcium 9.1 mg/dL (8.4-10.2)
[2022-01-06 11:20] VITALS: RESP 17
[2022-01-06 11:20] LABS: Potassium 4.4 mmol/L (3.5-5.1)
--- NOTE | 2022-01-06 11:20 | XR ---
EXAMINATION TYPE: XR chest 2V DATE OF EXAM: 01/06/2022 COMPARISON: Chest x-ray November 23, 2017 HISTORY: Cough. TECHNIQUE: Frontal and lateral views of the chest are obtained. FINDINGS: There is chronic parenchymal change without suspicious focal air space opacity, pleural ef fusion, or pneumothorax seen. The cardiac silhouette size is less prominent and within normal limits on current study. Coronary stent in the left circumflex distribution is identified. Cholecystectomy clips are seen. Surgical change cervical spine is partially imaged. IMPRESSION: Chronic changes without acute pulmonary process.
[2022-01-06 11:25] LABS: Basophils % (A) 0 %; Eosinophils # (A) 0.2 k/uL (0-0.7); Eosinophils % (A) 3 %; HCT 31.6 % (34.0-46.0); Lymphocytes % (A) 18 %; MCH 31.8 pg (25.0-35.0); MCHC 34.9 g/dL (31.0-37.0); MCV 91.2 fL (80.0-100.0); Mean Platelet Volume 7.1; Monocytes # (A) 0.8 k/uL (0-1.0); Monocytes % (A) 14 %; Neutrophils # (A) 3.4 k/uL (1.3-7.7); Neutrophils % (A) 61 %; Platelet Count 304 k/uL (150-450); RBC 3.46 m/uL (3.80-5.40); RDW 12.3 % (11.5-15.5); WBC 5.5 k/uL (3.8-10.6)
--- NOTE | 2022-01-06 11:27 | ED ---
General Adult HPI - General Chief complaint: Shortness of Breath Stated complaint: COVID+ Time Seen by Provider: 01/06/22 10:40 Source: patient, EMS, RN notes reviewed Mode of arrival: EMS Limitations: no limitations - History of Present Illness Initial comments: 71-year-old female presents emergency Department chief complaint of COVID-19. Patient states she started with a runny nose yesterday she tested positive was sent here by her PCP. She denies feeling short of breath chest pain nausea vomiting diarrhea constipation she does admit that she has mild nasal congestion, throat congestion. Patient states that symptoms are very mild and is unsure why she had a come emergency department. - Related Data Home Medications Medication Instructions Recorded Confirmed ALPRAZolam [Xanax] 0.5 mg PO DAILY PRN 11/23/17 06/16/21 Ascorbic Acid [Vitamin C] 500 mg PO DAILY 11/23/17 06/16/21 Aspirin [Adult Low Dose Aspirin EC] 81 mg PO HS 11/23/17 06/16/21 Atorvastatin Calcium [Lipitor] 20 mg PO HS 11/23/17 06/16/21 Cyanocobalamin (Vitamin B-12) 1,000 mcg PO DAILY 11/23/17 06/16/21 [Vitamin B-12] Donepezil [Aricept] 10 mg PO HS 11/23/17 06/16/21 EPINEPHrine (Auto Inject) [Epipen] 0.3 mg IM ONCE PRN 11/23/17 06/16/21 Gabapentin [Neurontin] 300 mg PO BID 11/23/17 06/16/21 Memantine [Namenda] 10 mg PO HS 11/23/17 06/16/21 Multivit/Folic Acid/Vit K1 1 tab PO DAILY 11/23/17 06/16/21 [One-A-Day Women's 50 Plus Tab] Pioglitazone [Actos] 15 mg PO DAILY 11/23/17 06/16/21 carvediloL [Coreg] 3.125 mg PO BID 11/23/17 06/16/21 lamoTRIgine 150 mg PO BID 11/23/17 06/16/21 ARIPiprazole [Abilify] 10 mg PO HS 06/16/21 06/16/21 Albuterol Sulfate [Ventolin HFA] 1 - 2 puff INHALATION RT-Q4H PRN 06/16/21 06/16/21 Benztropine Mesylate 0.5 mg PO DAILY 06/16/21 06/16/21 Biotin 1000 Mcg 1,000 mcg PO DAILY@1700 06/16/21 06/16/21 Carbidopa-Levodopa 25-250 mg 1 tab PO TID 06/16/21 06/16/21 [Sinemet 25-250 mg] Cholecalciferol [Vitamin D3 (25 50 mcg PO HS 06/16/21 06/16/21 Mcg = 1000 Iu)] Docusate [Colace] 100 mg PO BID 06/16/21 06/16/21 Ferrous Sulfate [Iron (65 MG 325 mg PO HS 06/16/21 06/16/21 Elemental)] Irbesartan [Avapro] 300 mg PO DAILY@1400 06/16/21 06/16/21 Melatonin 3 mg PO HS 06/16/21 06/16/21 NIFEdipine [Adalat CC] 90 mg PO DAILY@1400 06/16/21 06/16/21 Spironolactone 25 mg PO HS 06/16/21 06/16/21 buPROPion HCL [Wellbutrin XL] 300 mg PO DAILY 06/16/21 06/16/21 hydroCHLOROthiazide [Hydrodiuril] 25 mg PO DAILY 06/16/21 06/16/21 metFORMIN HCL [Glucophage] 1,000 mg PO BID@0800,1700 06/16/21 06/16/21 Previous Rx's Medication Instructions Recorded Acetaminophen Tab [Tylenol] 650 mg PO Q6HR PRN tab 06/17/21 Meclizine [Antivert] 25 mg PO TID PRN #30 tab 06/18/21 Allergies Allergy/AdvReac Type Severity Reaction Status Date / Time amoxicillin [From Augmentin] Allergy Swelling Verified 01/06/22 10:52 clavulanic acid Allergy Swelling Verified 01/06/22 10:52 [From Augmentin] codeine Allergy Swelling Verified 01/06/22 10:52 saccharin Allergy Unknown Verified 01/06/22 10:52 Sulfa (Sulfonamide Allergy Rash/Hives Verified 01/06/22 10:52 Antibiotics) tree nut [Nut] Allergy Anaphylaxis Verified 01/06/22 10:52 Review of Systems ROS Statement: Those systems with pertinent positive or pertinent negative responses have been documented in the HPI. ROS Other: All systems not noted in ROS Statement are negative. Past Medical History Past Medical History: Asthma, Dementia, Diabetes Mellitus, Hyperlipidemia, Hypertension, Pneumonia, Syncope Additional Past Medical History / Comment(s): Chronic vertigo if pt lies on her sides, NIDDM type II, neuropathy bilateral hands and occasionally in feet, "preparkinsonism", tremors, cardiac murmur, pancreatitis, R shoulder discomfort since injury 2 weeks ago, anemia, rare UTI, constipation. History of Any Multi-Drug Resistant Organisms: None Reported Past Surgical History: Appendectomy, Cholecystectomy, Hysterectomy, Orthopedic Surgery Additional Past Surgical History / Comment(s): Eploratory with appendectomy, cervical fusion. Past Anesthesia/Blood Transfusion Reactions: No Reported Reaction Past Psychological History: Anxiety, Bipolar, Depression Smoking Status: Never smoker Past Alcohol Use History: Rare Past Drug Use History: None Reported - Past Family History Mother History Unknown: Yes Family Medical History: Coronary Artery Disease (CAD), Eye Disorder Additional Family Medical History / Comment(s): Mother of heart problems. She had glaucoma. Father Family Medical History: Diabetes Mellitus Additional Family Medical History / Comment(s): Father of diabetic complications. General Exam Limitations: no limitations General appearance: alert, in no apparent distress Head exam: Present: atraumatic, normocephalic, normal inspection Eye exam: Present: normal appearance, PERRL, EOMI. Absent: scleral icterus, conjunctival injection, periorbital swelling ENT exam: Present: normal exam, normal oropharynx, mucous membranes moist Neck exam: Present: normal inspection, full ROM. Absent: tenderness, meningismu s, lymphadenopathy Respiratory exam: Present: normal lung sounds bilaterally. Absent: respiratory distress, wheezes, rales, rhonchi, stridor Cardiovascular Exam: Present: regular rate, normal rhythm, normal heart sounds. Absent: systolic murmur, diastolic murmur, rubs, gallop, clicks GI/Abdominal exam: Present: soft, normal bowel sounds. Absent: distended, tenderness, guarding, rebound, rigid Course Vital Signs 01/06/22 01/06/22 10:40 11:19 Temperature 99.4 F Pulse Rate 75 Respiratory 16 17 Rate Blood Pressure 110/64 O2 Sat by Pulse 95 Oximetry Medical Decision Making - Medical Decision Making 71-year-old presented for COVID-19 positive chest x-ray does not reveal acute findings. Patient's kidney function reveals GFR 40 which is baseline per prior records she's not qualify for Plaxovid. Patient will be discharged she has normal vitals return parameters discussed. - Lab Data Result diagrams: 01/06/22 11:00 01/06/22 11:00 Lab Results 01/06/22 01/06/22 Range/Units 11:00 11:00 WBC 5.5 (3.8-10.6) k/uL RBC 3.46 L (3.80-5.40) m/uL Hgb 11.0 L (11.4-16.0) gm/dL Hct 31.6 L (34.0-46.0) % MCV 91.2 (80.0-100.0) fL MCH 31.8 (25.0-35.0) pg MCHC 34.9 (31.0-37.0) g/dL RDW 12.3 (11.5-15.5) % Plt Count 304 (150-450) k/uL MPV 7.1 Neutrophils % 61 % Lymphocytes % 18 % Monocytes % 14 % Eosinophils % 3 % Basophils % 0 % Neutrophils # 3.4 (1.3-7.7) k/uL Lymphocytes # 1.0 (1.0-4.8) k/uL Monocytes # 0.8 (0-1.0) k/uL Eosinophils # 0.2 (0-0.7) k/uL Basophils # 0.0 (0-0.2) k/uL Sodium 134 L (137-145) mmol/L Potassium 4.4 (3.5-5.1) mmol/L Chloride 98 (98-107) mmol/L Carbon Dioxide 20 L (22-30) mmol/L Anion Gap 16 mmol/L BUN 32 H (7-17) mg/dL Creatinine 1.34 H (0.52-1.04) mg/dL Est GFR (CKD-EPI)AfAm 46 (>60 ml/min/1.73 sqM) Est GFR (CKD-EPI)NonAf 40 (>60 ml/min/1.73 sqM) Glucose 120 H (74-99) mg/dL Calcium 9.1 (8.4-10.2) mg/dL Disposition Clinical Impression: COVID-19 Disposition: HOME SELF-CARE Condition: Stable Instructions (If sedation given, give patient instructions): COVID-19 (Coronavirus Disease 2019) (ED) Additional Instructions: Please return to the Emergency Department if symptoms worsen or any other concerns. Is patient prescribed a controlled substance at d/c from ED?: No Referrals: Marilee Rendon DO [Primary Care Provider] - 1-2 days Time of Disposition: 11:55
[2022-01-06 12:28] VITALS: BP 116/47; PULSE 73
== END 2022-01-06 12:30 | disposition home or self-care (01) ==
LOC: EC 10:38
DX: U07.1 COVID-19 (principal); J45.909 Unspecified asthma, uncomplicated; E11.9 Type 2 diabetes mellitus without complications; E78.5 Hyperlipidemia, unspecified; Z79.84 Long term (current) use of oral hypoglycemic drugs; Z88.8 Allergy status to other drugs, medicaments and biological substances; Z88.6 Allergy status to analgesic agent; Z88.5 Allergy status to narcotic agent; Z88.2 Allergy status to sulfonamides; Z91.09 Other allergy status, other than to drugs and biological substances
CPT/HCPCS: 36415; 71046; 80048; 85025; 99285

== ENCOUNTER 2022-12-23 10:47 | Day surgery (SDC) | payer MEDICARE ==
[~2022-12-23 10:47] MED LIST: ALPRAZolam 0.25 MG TAB PO PRN; ASPIRIN 325 MG TAB PO STA; ATORVASTATIN 80 MG TAB PO STA; HEPARIN SODIUM,PORCINE (1 ML) 2,500 UNIT in SODIUM CHLORIDE 0.9% 250 ML IRRIGATION PRN; HEPARIN SODIUM,PORCINE 10,000 UNIT in SODIUM CHLORIDE 0.9% 1,000 ML IRRIGATION PRN; NITROGLYCERIN SL TABS 0.4 MG TAB SUBLINGUAL PRN; SODIUM CHLORIDE 0.9% 1,000 ML in EMPTY BAG 1 BAG IV SCH
[2022-12-23] MEDS ORDERED: SODIUM CHLORIDE 0.9% 1,000 ML IV ONE (11:38)
[2022-12-23 12:03] LABS: Glucose,Whole Blood 126 mg/dL (70-110)
[2022-12-23] MEDS ORDERED: VERAPAMIL 2.5 MG/ML 2 ML AMP ONE (12:28)
[2022-12-23] MEDS ORDERED: fentaNYL (PF) 50 MCG/ML 2 ML AMP ONE (12:37)
[2022-12-23] MEDS ORDERED: HEPARIN SODIUM 1,000 UN/ML (10ML VL) ONE (12:37)
[2022-12-23] MEDS: MIDAZOLAM 2 MG/2 ML VIAL IVP ONE ×3 (12:54→14:05)
[2022-12-23] MEDS: fentaNYL (PF) 50 MCG/ML 2 ML AMP IVP ONE ×3 (12:54→14:05)
[2022-12-23] MEDS ORDERED: LIDOCAINE 1% INJ 10MG/ML (5 ML VIAL-PF) SQ ONE (12:57)
[2022-12-23] MEDS ORDERED: LIDOCAINE 2% (PF) 20 MG/ML 5 ML VIAL SQ ONE (12:57)
[2022-12-23] MEDS ORDERED: VERAPAMIL SYRINGE (5 MG/10 ML) INTRAARTER ONE (12:59)
[2022-12-23] MEDS: HEPARIN SODIUM 1,000 UN/ML (10ML VL) IVP ONE ×3 (13:01→13:21)
[2022-12-23 13:08] LABS: African American GFR (CKD) 66 (>60 ml/min/1.73 sqM); Anion Gap 12 mmol/L; Blood Urea Nitrogen 25 mg/dL (7-17); Calcium 9.6 mg/dL (8.4-10.2); Carbon Dioxide 24 mmol/L (22-30); Chloride 101 mmol/L (98-107); Glucose 127 mg/dL (74-99); Non-African American GFR(CKD) 57 (>60 ml/min/1.73 sqM); Potassium 4.4 mmol/L (3.5-5.1); Sodium 137 mmol/L (137-145)
[2022-12-23] MEDS ORDERED: CLOPIDOGREL 75 MG TAB ONE (13:18)
[2022-12-23] MEDS ORDERED: CLOPIDOGREL 75 MG TAB PO ONE (13:19)
[2022-12-23] MEDS: NITROGLYCERIN 1000MCG/10ML SYRINGE INTRACORON ONE ×3 (13:27→14:04)
[2022-12-23] MEDS ORDERED: IOPAMIDOL-370 100ML BTL INJ ONE ×2 (13:48→14:02)
[2022-12-23] MEDS ORDERED: MAG HYDROX/AL HYDROX/SIMETH 30 ML CUP PO PRN (15:42)
[2022-12-23] MEDS ORDERED: ZOLPIDEM 5 MG TAB PO PRN (15:42)
[2022-12-23] MEDS ORDERED: RX INFO: IV CONTRAST WAS GIVEN 1 EACH MISC MISCELLANE PRN (15:42)
[2022-12-23] MEDS ORDERED: ATROPINE SULFATE 0.1 MG/ML 10ML SYRINGE IV PRN (15:42)
[2022-12-23] MEDS: ALPRAZolam 0.5 MG TAB PO PRN (21:23)
[2022-12-23] MEDS: ATORVASTATIN 80 MG TAB PO SCH (21:24)
--- NOTE | 2022-12-23 22:07 | P.PRCINT ---
Percutaneous Coronary Int. - Percutaneous Coronary Intervention Percutaneous Coronary Intervention: PROCEDURES PERFORMED: Left heart catheterization, bilateral coronary angiography, PCI RCA with overlapping 4.0 x 38mm and 4.0 x 15mm Xience COREY, post dilated with a 4.5 NC balloon, iFR RCA, IVUS RCA, ultrasound guided arterial access INDICATION: Abnormal stress test, chest pain, dyspnea CONSENT:I have discussed the risks, benefits and alternative therapies for the above-mentioned procedure and for both sedation/analgesia as well as necessary blood product administration, if indicated, as they pertain to this patient. The patient has indicated understanding and acceptance of the risks and procedures discussed. PROCEDURE: After the risks, benefits and alternatives of the above mentioned procedure explained in detail with the patient, informed consent was obtained. Patient was taken to the catheterization lab and prepped and draped in usual fashion. Ultrasound guidance was used to assess for arterial access. 1% lidocaine was used to anesthetize the right radial artery. A 6-Stateless sheath was placed in the right radial artery using modified Seldinger technique and ultrasound guidance. Left coronary angiography was performed with a 5-Stateless JL 3.5 catheter and right coronary angiography was performed with a 5-Stateless FR5 catheter in various views. The FR5 catheter was advanced into the LV and pressure measurements were made. The decision was made to perform iFR of the RCA. Using the FR 5 catheter, a 0.014 pressure wire was advanced into the RCA ostium and normalized. It was then advanced into the mid RCA and was abnormal at 0.86. Therefore the decision was made to perform PCI of the RCA. Therefore a 6Fr AL 1.0 guide was used to engage the RCA. Heparin was given for ACT greater than 250. A 0.014 BMW wire was advanced into the distal RCA. A 2.5 x 12mm then 3.0 NC and a 4.0 NC balloon was used to predilate the lesion. Overlapping 4.0 x 38mm Xience COREY mid and 4.0 x 15mm Xience COREY proximally was placed in the RCA. The stents were post dilated with a 4.5 NC balloon proximally and in the mid. There was diffuse distal calcified 30-50% stenosis felt best treated medically. Repeat IVUS showed excellent stent apposition, no dissection. Patient did have some atypical chest pain throughout the procedure thought more musculoskeletal or possible related to taking Plavix on empty stomach with no ischemic changes noted on EKG. Final angiograms were performed. Preintervention there was 75% stenosis and ALMAS 3 flow and post intervention there was < 10% stenosis and ALMAS 3 flow. The right radial sheath was removed and a TR band was placed with hemostasis achieved. The patient tolerated the procedure well. Patient was transported back to the post catheterization holding area in stable condition. Conscious Sedation: Patient was monitored under the direct supervision of myself for conscious sedation using Versed and fentanyl for a total duration of 70 minutes HEMODYNAMICS: Aorta: 132/75 SELECTIVE CORONARY ARTERIOGRAPHY: LEFT MAIN: The left main is a large caliber vessel which bifurcates into the LAD and circumflex. There is distal left main 30% stenosis. LEFT ANTERIOR DESCENDING CORONARY ARTERY: LAD is a large caliber vessel which wraps around to the apex. There is a mild 20-30% proximal LAD stenosis and then a patent LAD stent and otherwise mild luminal irregularities. LEFT CIRCUMFLEX CORONARY ARTERY: Left circumflex is a moderate caliber vessel which is nondominant. There is a mid circumflex 40% stenosis and otherwise mild luminal irregularities. RIGHT CORONARY ARTERY: The right coronary artery is a moderate caliber vessel which gives off the PDA and PLV and is the dominant vessel. There is proximal to mid RCA 75% stenosis. FINAL IMPRESSION: 1. CAD as described above including 75% RCA stenosis, 30% distal left main stenosis, 20-30% LAD stemosis, 40% mid circumflex stenosis 2. S/p PCI RCA with overlapping 4.0 x 38mm and 4.0 x 15mm Xience COREY, post dilated with a 4.5 NC balloon 3. Normal left sided filling pressures PLAN: 1. Aggressive risk factor modification per most recent ACC/AHA guidelines. 2. Continue dual antiplatelets with aspirin and Plavix for 6 months
[2022-12-24] MEDS ORDERED: IBUPROFEN 600 MG TAB PO PRN (06:34)
[2022-12-24] MEDS ORDERED: MECLIZINE 25 MG TAB PO PRN (06:34)
--- NOTE | 2022-12-24 06:36 | P.PN ---
Subjective Progress Note Date: 12/24/22 Principal diagnosis: CAD The patient is a pleasant 72-year-old female patient with a past medical history significant for CAD status post PCI of the RCA was performed yesterday as well as diabetes and hypertension and dyslipidemia. Apparently she was experiencing some chest discomfort after the procedure. She is supposed to go home the day of the procedure but she was kept because of the symptoms. 12/24/2022 The patient was seen and evaluated this morning. She did have an episode of chest discomfort yesterday. Her home medication was not reinitiated yesterday and I'm going to restart her back on her home medication at this point. We will monitor the patient overnight for the next 24 hours. Restart her home medication including calcium channel colette as well as beta colette as well as Aldactone. Continue holding metformin at this point. Continue monitor the patient for additional 24 hours Examination is remarkable for regular rhythm with a systolic murmur at the right and left upper sternal border Assessment CAD status post PCI of the RCA as described above Chest discomfort which has resolved. Currently the patient is chest pain-free [place] multiple comorbid conditions including diabetes and hypertension and dyslipidemia Plan Monitor the patient for additional 24 hours Monitor the kidney function and electrolytes Follow-up with the patient Objective - Vital Signs Vital signs: Vital Signs Temp 98.1 F 12/24/22 03:09 Pulse 68 12/24/22 03:09 Resp 16 12/24/22 03:09 BP 162/68 12/24/22 03:09 Pulse Ox 93 L 12/24/22 03:09 FiO2 Intake & Output 12/23/22 12/23/22 12/24/22 06:59 18:59 06:59 Intake Total 900 Balance 900 Weight 84.9 kg Intake: IV 900 Other: # Voids 1 - Labs CBC & Chem 7: 12/23/22 11:58 Labs: Abnormal Lab Results - Last 24 Hours (Table) 12/23/22 12/23/22 Range/Units 11:58 11:59 BUN 25 H (7-17) mg/dL Glucose 127 H (74-99) mg/dL POC Glucose (mg/dL) 126 H (70-110) mg/dL
[2022-12-24 06:49] LABS: Basophils % (A) 0 %; Eosinophils # (A) 0.1 k/uL (0-0.7); Eosinophils % (A) 2 %; HCT 31.1 % (34.0-46.0); HGB 10.1 gm/dL (11.4-16.0); Lymphocytes # (A) 1.4 k/uL (1.0-4.8); Lymphocytes % (A) 18 %; MCH 31.2 pg (25.0-35.0); MCHC 32.5 g/dL (31.0-37.0); Monocytes # (A) 0.6 k/uL (0-1.0); Monocytes % (A) 8 %; Neutrophils # (A) 5.3 k/uL (1.3-7.7); Neutrophils % (A) 70 %; Platelet Count 315 k/uL (150-450); RBC 3.24 m/uL (3.80-5.40); RDW 12.5 % (11.5-15.5); WBC 7.5 k/uL (3.8-10.6)
[2022-12-24 06:57] LABS: African American GFR (CKD) 80 (>60 ml/min/1.73 sqM); Anion Gap 9 mmol/L; Blood Urea Nitrogen 15 mg/dL (7-17); Calcium 9.2 mg/dL (8.4-10.2); Carbon Dioxide 24 mmol/L (22-30); Chloride 105 mmol/L (98-107); Glucose 108 mg/dL (74-99); Non-African American GFR(CKD) 70 (>60 ml/min/1.73 sqM); Potassium 4.2 mmol/L (3.5-5.1); Sodium 138 mmol/L (137-145)
[2022-12-24] MEDS ORDERED: NON FORMULARY DRUG (Aspirin [Adult Low Dose Aspirin Ec] 81 MG Tablet.Dr) PO SCH (09:00)
[2022-12-24] MEDS: CARBIDOPA-LEVODOPA 25-250 MG 1 EACH TAB PO SCH ×3 (09:32→20:41)
[2022-12-24] MEDS: buPROPion XL 300 MG TAB.ER.24H PO SCH (09:32)
[2022-12-24] MEDS: CLOPIDOGREL 75 MG TAB PO SCH (09:32)
[2022-12-24] MEDS: CYANOCOBALAMIN 500 MCG TAB PO SCH (09:32)
[2022-12-24] MEDS: hydroCHLOROthiazide 25 MG TAB PO SCH (09:32)
[2022-12-24] MEDS: ASCORBIC ACID 500 MG TAB PO SCH (09:32)
[2022-12-24] MEDS: lamoTRIgine 100 MG TAB PO SCH ×2 (09:32→20:38)
[2022-12-24] MEDS: DOCUSATE 100 MG CAP PO SCH ×2 (09:33→20:38)
[2022-12-24] MEDS: BENZTROPINE MESYLATE 0.5 MG TAB PO SCH (09:33)
[2022-12-24] MEDS: GABAPENTIN 300 MG CAP PO SCH ×2 (09:33→20:39)
[2022-12-24] MEDS: PIOGLITAZONE 15 MG TAB PO SCH (09:33)
[2022-12-24] MEDS: ASPIRIN 81 MG PO SCH (09:33)
[2022-12-24] MEDS: carvediloL 3.125 MG TAB PO SCH ×2 (09:36→16:29)
[2022-12-24] MEDS: MULTIVITAMINS, THERA 1 EACH TAB PO SCH (09:37)
[2022-12-24 10:26] VITALS: BMI 33.1
[2022-12-24] MEDS ORDERED: LOSARTAN 50 MG TAB PO SCH (14:00)
[2022-12-24] MEDS ORDERED: NIFEdipine XL 90 MG TAB.ER.24 PO SCH (14:00)
[2022-12-24] MEDS: ALPRAZolam 0.5 MG TAB PO PRN ×2 (14:27→20:37)
[2022-12-24] MEDS ORDERED: BIOTIN 1000 MCG PO SCH (17:00)
[2022-12-24] MEDS ORDERED: MELATONIN 3 MG TABLET PO SCH (20:00)
[2022-12-24] MEDS ORDERED: SPIRONOLACTONE 25 MG TAB PO SCH (20:00)
[2022-12-24] MEDS ORDERED: DONEPEZIL 10 MG TAB PO SCH (20:00)
[2022-12-24] MEDS ORDERED: ARIPiprazole 10 MG TAB PO SCH (20:00)
[2022-12-24] MEDS ORDERED: QUEtiapine 25 MG TAB PO SCH (20:00)
[2022-12-24] MEDS ORDERED: MEMANTINE 10 MG TAB PO SCH (20:00)
[2022-12-24] MEDS ORDERED: ATORVASTATIN 20 MG TAB PO SCH (20:00)
[2022-12-24] MEDS ORDERED: FERROUS SULFATE 325 MG TAB PO SCH (20:00)
[2022-12-24] MEDS ORDERED: CHOLECALCIFEROL 25 MCG (1000 IU) TABLET PO SCH (20:00)
[2022-12-24] MEDS: ATORVASTATIN 80 MG TAB PO SCH (20:38)
[2022-12-24] MEDS ORDERED: OLANZapine 2.5 MG TAB PO SCH (21:00)
--- NOTE | 2022-12-25 07:57 | P.DS ---
Providers Attending physician: Erick Lopez DO Consults: 12/23/22 15:44 Consult Physician Routine Consulting Provider: [facility] Consult Reason/Comments: Post Interventional patient Do you want consulting provider notified?: Already Contacted Primary care physician: Marilee Rendon DO Hospital Course: The patient is a pleasant 72-year-old female patient one underwent PCI by Dr. Lopez 2 days ago. She was seen and evaluated today. She is asymptomatic and hemodynamically stable. The patient would like to go home I am going to discharge the patient on dual antiplatelet therapy along with high intensity statin and she will follow-up with Dr. Lopez in the office early Plan - Discharge Summary Discharge Rx Participant: No New Discharge Prescriptions: New Clopidogrel [Plavix] 75 mg PO DAILY #90 tab Aspirin 81 mg PO DAILY tab Atorvastatin [Lipitor] 80 mg PO HS #90 tab Continue Ascorbic Acid [Vitamin C] 500 mg PO DAILY@0800 ALPRAZolam [Xanax] 0.5 mg PO DAILY PRN PRN Reason: Anxiety Memantine [Namenda] 10 mg PO HS@2000 Gabapentin [Neurontin] 300 mg PO BID@0800,2000 EPINEPHrine (Auto Inject) [Epipen] 0.3 mg IM ONCE PRN PRN Reason: Anaphylaxis Donepezil [Aricept] 10 mg PO HS@2000 Atorvastatin Calcium [Lipitor] 20 mg PO HS@2000 Pioglitazone [Actos] 15 mg PO DAILY@0800 lamoTRIgine 150 mg PO BID@0800,2000 Multivit/Folic Acid/Vit K1 [One-A-Day Women's 50 Plus Tab] 1 tab PO DAILY@0800 Cyanocobalamin (Vitamin B-12) [Vitamin B-12] 1,000 mcg PO DAILY@0800 carvediloL [Coreg] 3.125 mg PO BID@0800,1700 Aspirin [Adult Low Dose Aspirin EC] 81 mg PO DAILY Biotin 1000 Mcg 1,000 mcg PO DAILY@1700 Albuterol Sulfate [Ventolin HFA] 1 - 2 puff INHALATION RT-Q4H PRN PRN Reason: Shortness Of Breath Benztropine Mesylate 0.5 mg PO DAILY@0800 Carbidopa-Levodopa 25-250 mg [Sinemet 25-250 mg] 1 tab PO TID@0800,1400,2000 Docusate [Colace] 100 mg PO BID@0800,2000 Ferrous Sulfate [Iron (65 MG Elemental)] 325 mg PO HS@1999 Irbesartan [Avapro] 300 mg PO DAILY@1400 Melatonin 3 mg PO HS@1999 OLANZapine [ZyPREXA] 2.5 mg PO HS ARIPiprazole [Abilify] 10 mg PO HS@1999 buPROPion HCL [Wellbutrin XL] 300 mg PO DAILY@0800 Cholecalciferol [Vitamin D3 (25 Mcg = 1000 Iu)] 50 mcg PO HS@1999 hydroCHLOROthiazide [Hydrodiuril] 25 mg PO DAILY@0800 NIFEdipine [Adalat CC] 90 mg PO DAILY@1400 Spironolactone 25 mg PO HS@1999 Meclizine [Antivert] 25 mg PO TID PRN #30 tab PRN Reason: Vertigo QUEtiapine [SEROquel] 25 mg PO HS@1999 Ibuprofen 600 mg PO Q6H PRN PRN Reason: Pain Discontinued metFORMIN HCL [Glucophage] 1,000 mg PO BID@0800,1700 Discharge Medication List ALPRAZolam [Xanax] 0.5 mg PO DAILY PRN 11/23/17 [History] Ascorbic Acid [Vitamin C] 500 mg PO DAILY@0800 11/23/17 [History] Aspirin [Adult Low Dose Aspirin EC] 81 mg PO DAILY 11/23/17 [History] Atorvastatin Calcium [Lipitor] 20 mg PO HS@199911/23/17 [History] Cyanocobalamin (Vitamin B-12) [Vitamin B-12] 1,000 mcg PO DAILY@0800 11/23/17 [History] Donepezil [Aricept] 10 mg PO HS@199911/23/17 [History] EPINEPHrine (Auto Inject) [Epipen] 0.3 mg IM ONCE PRN 11/23/17 [History] Gabapentin [Neurontin] 300 mg PO BID@0800,199911/23/17 [History] Memantine [Namenda] 10 mg PO HS@199911/23/17 [History] Multivit/Folic Acid/Vit K1 [One-A-Day Women's 50 Plus Tab] 1 tab PO DAILY@0800 11/23/17 [History] Pioglitazone [Actos] 15 mg PO DAILY@0800 11/23/17 [History] carvediloL [Coreg] 3.125 mg PO BID@0800,1700 11/23/17 [History] lamoTRIgine 150 mg PO BID@0800,199911/23/17 [History] ARIPiprazole [Abilify] 10 mg PO HS@199906/16/21 [History] Albuterol Sulfate [Ventolin HFA] 1 - 2 puff INHALATION RT-Q4H PRN 06/16/21 [History] Benztropine Mesylate 0.5 mg PO DAILY@0800 06/16/21 [History] Biotin 1000 Mcg 1,000 mcg PO DAILY@17006/16/21 [History] Carbidopa-Levodopa 25-250 mg [Sinemet 25-250 mg] 1 tab PO TID@0800,1400,199906/16/21 [History] Cholecalciferol [Vitamin D3 (25 Mcg = 1000 Iu)] 50 mcg PO HS@199906/16/21 [History] Docusate [Colace] 100 mg PO BID@0800,199906/16/21 [History] Ferrous Sulfate [Iron (65 MG Elemental)] 325 mg PO HS@199906/16/21 [History] Irbesartan [Avapro] 300 mg PO DAILY@1400 06/16/21 [History] Melatonin 3 mg PO HS@199906/16/21 [History] NIFEdipine [Adalat CC] 90 mg PO DAILY@139906/16/21 [History] Spironolactone 25 mg PO HS@199906/16/21 [History] buPROPion HCL [Wellbutrin XL] 300 mg PO DAILY@0806/16/21 [History] hydroCHLOROthiazide [Hydrodiuril] 25 mg PO DAILY@0806/16/21 [History] Meclizine [Antivert] 25 mg PO TID PRN #30 tab 06/18/21 [Rx] QUEtiapine [SEROquel] 25 mg PO HS@199901/06/22 [History] Ibuprofen 600 mg PO Q6H PRN 12/20/22 [History] OLANZapine [ZyPREXA] 2.5 mg PO HS 12/20/22 [History] Aspirin 81 mg PO DAILY tab 12/25/22 [Rx] Atorvastatin [Lipitor] 80 mg PO HS #90 tab 12/25/22 [Rx] Clopidogrel [Plavix] 75 mg PO DAILY #90 tab 12/25/22 [Rx] Follow up Appointment(s)/Referral(s): Erick Lopez DO [STAFF PHYSICIAN] - 01/03/23 12:15 pm Patient Instructions/Handouts: Moderate Sedation (DC), After Radial Heart Catheterization (GEN), Left Heart Catheterization (DC) Activity/Diet/Wound Care/Special Instructions: No flexing/bending/pushing/pulling/lifting greater than 5 pounds x5 days No driving x3 days No submersion of right wrist in pools/hot tubs/bath tubs/dish water x3 days Fall risk/safety precautions Follow up No changes with home medications Encourage fluids x2 days
[2022-12-25] MEDS: DOCUSATE 100 MG CAP PO SCH (08:36)
[2022-12-25] MEDS: GABAPENTIN 300 MG CAP PO SCH (08:36)
[2022-12-25] MEDS: PIOGLITAZONE 15 MG TAB PO SCH (08:36)
[2022-12-25] MEDS: ASCORBIC ACID 500 MG TAB PO SCH (08:36)
[2022-12-25] MEDS: ASPIRIN 81 MG PO SCH (08:36)
[2022-12-25] MEDS: buPROPion XL 300 MG TAB.ER.24H PO SCH (08:36)
[2022-12-25] MEDS: lamoTRIgine 100 MG TAB PO SCH (08:36)
[2022-12-25] MEDS: CYANOCOBALAMIN 500 MCG TAB PO SCH (08:36)
[2022-12-25] MEDS: CARBIDOPA-LEVODOPA 25-250 MG 1 EACH TAB PO SCH (08:36)
[2022-12-25] MEDS: BENZTROPINE MESYLATE 0.5 MG TAB PO SCH (08:36)
[2022-12-25] MEDS: CLOPIDOGREL 75 MG TAB PO SCH (08:36)
[2022-12-25] MEDS: hydroCHLOROthiazide 25 MG TAB PO SCH (08:36)
[2022-12-25] MEDS: MULTIVITAMINS, THERA 1 EACH TAB PO SCH (08:36)
[2022-12-25] MEDS: carvediloL 3.125 MG TAB PO SCH (08:40)
[2022-12-25 10:11] VITALS: BP 99/48; PULSE 72; RESP 15; TEMP 97.6
== END 2022-12-25 13:00 | disposition home or self-care (01) ==
LOC: CATHCVL 10:47 → 6NMEDSUR 14:36 → CATHCVL 12-25 13:00
PROVIDERS: ATTEND Internal Medicine
DX: I25.10 Atherosclerotic heart disease of native coronary artery without angina pectoris (principal); Z95.5 Presence of coronary angioplasty implant and graft; I10 Essential (primary) hypertension; E78.5 Hyperlipidemia, unspecified; E11.9 Type 2 diabetes mellitus without complications; Z82.49 Family history of ischemic heart disease and other diseases of the circulatory system; Z88.0 Allergy status to penicillin; Z88.5 Allergy status to narcotic agent; Z88.2 Allergy status to sulfonamides; Z79.82 Long term (current) use of aspirin; Z79.899 Other long term (current) drug therapy
CPT/HCPCS: 94760; 93571; 92978; 93458; 80048 ×2; 85025; C9600; C1769 ×3; C1894; C1887; C1725 ×4; C1753; C1874 ×2; J2250; J3010; J1644; Q9967; J2001; J2305

== ENCOUNTER 2023-01-10 13:23 | Emergency (ER) | payer MEDICARE ==
[2023-01-10] MEDS ORDERED: NITROGLYCERIN SL TABS 0.4 MG TAB SUBLINGUAL STA (13:32)
[2023-01-10] MEDS ORDERED: METOCLOPRAMIDE 5 MG/ML 2 ML VIAL IVP STA (13:32)
[2023-01-10] MEDS ORDERED: GLUCAGON 1 MG/ML VIAL IVP STA (13:33)
--- NOTE | 2023-01-10 13:35 | ED ---
General Adult HPI - General Chief complaint: ENT Stated complaint: Food in Throat Time Seen by Provider: 01/10/23 13:25 Source: patient, EMS, RN notes reviewed Mode of arrival: EMS Limitations: no limitations - History of Present Illness Initial comments: Patient is a pleasant 72-year-old female presenting to the emergency department with concerns with food stuck in her throat. Patient was eating lunch about an hour and a half prior to arrival. Patient was eating a steak hamburger. Patient feels it got stuck. Patient was unable to swallow at all for a little bit. Patient did vomit a couple times. Patient feels it is still stuck. No dyspnea. Patient does have history of similar symptoms previously. Patient has had previous scopes. - Related Data Home Medications Medication Instructions Recorded Confirmed ALPRAZolam [Xanax] 0.5 mg PO DAILY PRN 11/23/17 12/23/22 Ascorbic Acid [Vitamin C] 500 mg PO DAILY@0800 11/23/17 12/23/22 Aspirin [Adult Low Dose Aspirin EC] 81 mg PO DAILY 11/23/17 12/23/22 Atorvastatin Calcium [Lipitor] 20 mg PO HS@199911/23/17 12/23/22 Cyanocobalamin (Vitamin B-12) 1,000 mcg PO DAILY@0811/23/17 12/23/22 [Vitamin B-12] Donepezil [Aricept] 10 mg PO HS@199911/23/17 12/23/22 EPINEPHrine (Auto Inject) [Epipen] 0.3 mg IM ONCE PRN 11/23/17 12/23/22 Gabapentin [Neurontin] 300 mg PO BID@799,199911/23/17 12/20/22 Memantine [Namenda] 10 mg PO HS@199911/23/17 12/23/22 Multivit/Folic Acid/Vit K1 1 tab PO DAILY@79911/23/17 12/23/22 [One-A-Day Women's 50 Plus Tab] Pioglitazone [Actos] 15 mg PO DAILY@0800 11/23/17 12/23/22 carvediloL [Coreg] 3.125 mg PO BID@0800,1700 11/23/17 12/20/22 lamoTRIgine 150 mg PO BID@799,199911/23/17 12/20/22 ARIPiprazole [Abilify] 10 mg PO HS@199906/16/21 12/23/22 Albuterol Sulfate [Ventolin HFA] 1 - 2 puff INHALATION RT-Q4H PRN 06/16/21 12/23/22 Benztropine Mesylate 0.5 mg PO DAILY@0800 06/16/21 12/20/22 Biotin 1000 Mcg 1,000 mcg PO DAILY@1700 06/16/21 12/23/22 Carbidopa-Levodopa 25-250 mg 1 tab PO TID@0800,1399,199906/16/21 12/20/22 [Sinemet 25-250 mg] Cholecalciferol [Vitamin D3 (25 50 mcg PO HS@199906/16/21 12/23/22 Mcg = 1000 Iu)] Docusate [Colace] 100 mg PO BID@0800,199906/16/21 12/20/22 Ferrous Sulfate [Iron (65 MG 325 mg PO HS@199906/16/21 12/23/22 Elemental)] Irbesartan [Avapro] 300 mg PO DAILY@139906/16/21 12/23/22 Melatonin 3 mg PO HS@199906/16/21 12/23/22 NIFEdipine [Adalat CC] 90 mg PO DAILY@139906/16/21 12/23/22 Spironolactone 25 mg PO HS@199906/16/21 12/23/22 buPROPion HCL [Wellbutrin XL] 300 mg PO DAILY@0800 06/16/21 12/20/22 hydroCHLOROthiazide [Hydrodiuril] 25 mg PO DAILY@0806/16/21 12/20/22 QUEtiapine [SEROquel] 25 mg PO HS@199901/06/22 12/23/22 Ibuprofen 600 mg PO Q6H PRN 12/20/22 12/23/22 OLANZapine [ZyPREXA] 2.5 mg PO HS 12/20/22 12/23/22 Previous Rx's Medication Instructions Recorded Meclizine [Antivert] 25 mg PO TID PRN #30 tab 06/18/21 Aspirin 81 mg PO DAILY #90 tab 12/25/22 Atorvastatin [Lipitor] 80 mg PO HS #90 tab 12/25/22 Clopidogrel [Plavix] 75 mg PO DAILY #90 tablet 12/25/22 Pantoprazole [Protonix] 40 mg PO DAILY #30 tab 01/10/23 Allergies Allergy/AdvReac Type Severity Reaction Status Date / Time codeine Allergy Itching Verified 12/23/22 12:14 Sulfa (Sulfonamide Allergy Rash/Hives Verified 12/23/22 12:14 Antibiotics) tree nut [Nut] Allergy Anaphylaxis Verified 12/23/22 12:14 Review of Systems ROS Statement: Those systems with pertinent positive or pertinent negative responses have been documented in the HPI. ROS Other: All systems not noted in ROS Statement are negative. Constitutional: Denies: fever Eyes: Denies: eye pain ENT: Denies: ear pain Respiratory: Denies: cough, dyspnea Cardiovascular: Denies: chest pain Gastrointestinal: Reports: as per HPI, nausea Past Medical History Past Medical History: Asthma, Dementia, Diabetes Mellitus, Hyperlipidemia, Hypertension, Pneumonia, Syncope Additional Past Medical History / Comment(s): Chronic vertigo if pt lies on her sides, NIDDM type II, neuropathy bilateral hands and occasionally in feet, "preparkinsonism", tremors, cardiac murmur, pancreatitis, R shoulder discomfort since injury 2 weeks ago, anemia, rare UTI, constipation. History of Any Multi-Drug Resistant Organisms: None Reported Past Surgical History: Appendectomy, Cholecystectomy, Hysterectomy, Orthopedic Surgery Additional Past Surgical History / Comment(s): Eploratory with appendectomy, cervical fusion. Past Anesthesia/Blood Transfusion Reactions: No Reported Reaction Past Psychological History: Anxiety, Bipolar, Depression Smoking Status: Never smoker Past Alcohol Use History: Rare Past Drug Use History: None Reported - Past Family History Mother History Unknown: Yes Family Medical History: Coronary Artery Disease (CAD), Eye Disorder Father Family Medical History: Diabetes Mellitus General Exam Limitations: no limitations General appearance: alert, in no apparent distress Head exam: Present: atraumatic Eye exam: Present: normal appearance ENT exam: Present: normal oropharynx Neck exam: Present: normal inspection Respiratory exam: Present: normal lung sounds bilaterally. Absent: respiratory distress, wheezes Cardiovascular Exam: Present: regular rate, normal rhythm GI/Abdominal exam: Present: soft. Absent: tenderness Extremities exam: Present: normal inspection Neurological exam: Present: alert Psychiatric exam: Present: normal affect, normal mood Skin exam: Present: normal color Course Vital Signs 01/10/23 01/10/23 13:26 14:45 Temperature 98.1 F Pulse Rate 71 65 Respiratory 18 18 Rate Blood Pressure 170/63 153/88 O2 Sat by Pulse 94 L 96 Oximetry Medical Decision Making - Medical Decision Making Was pt. sent in by a medical professional or institution (, DEYANIRA, LEAD PHARMACY TECHNICIAN, urgent care, hospital, or assisted...) When possible be specific @ -Patient was sent from senior care Did you speak to anyone other than the patient for history (EMS, parent, family, police, friend...)? What history was obtained from this source @ -No Did you review nursing and triage notes (agree or disagree)? Why? @ -I reviewed and agree with nursing and triage notes Were old charts reviewed (outside hosp., previous admission, EMS record, old EKG, old radiological studies, urgent care reports/EKG's, assisted records)? Report findings @ -No old charts were reviewed Differential Diagnosis (chest pain, altered mental status, abdominal pain women, abdominal pain men, vaginal bleeding, weakness, fever, dyspnea, syncope, headache, dizziness, GI bleed, back pain, seizure, CVA, palpatations, mental health, musculoskeletal)? @ -Differential Abdominal Pain Women: Appendicitis, Cholecystitis, diverticulosis, ischemic bowel, pancreatitis, hepatitis, UTI, gastroenteritis, AAA, incarcerated hernia, bowel obstruction, constipation, inflammatory bowel, hepatitis, peptic ulcer disease, splenic infarction, perforated viscus, vulvitis, ovarian torsion, PID, kidney stone, placenta abruption, this is not meant to be an all-inclusive list EKG interpreted by me (3pts min.). @ -As above X-rays interpreted by me (1pt min.). @ -None done CT interpreted by me (1pt min.). @ -None done U/S interpreted by me (1pt. min.). @ -None done What testing was considered but not performed or refused? (CT, X-rays, U/S, labs)? Why? @ -None What meds were considered but not given or refused? Why? @ -None Did you discuss the management of the patient with other professionals (professionals i.e. DEYANIRA Bhatti, LEAD PHARMACY TECHNICIAN, lab, RT, psych nurse, social sciences department chair, canning machine operator, teacher, administrative services officer, family service caseworker)? Give summary @ -No Was smoking cessation discussed for >3mins.? @ -No Was critical care preformed (if so, how long)? @ -No Were there social determinants of health that impacted care today? How? (Homelessness, low income, unemployed, alcoholism, drug addiction, transpor tation, low edu. Level, literacy, decrease access to med. care, longterm, rehab)? @ -No Was there de-escalation of care discussed even if they declined (Discuss DNR or withdrawal of care, Hospice)? DNR status @ -No What co-morbidities impacted this encounter? (DM, HTN, Smoking, COPD, CAD, Cancer, CVA, ARF, Chemo, Hep., AIDS, mental health diagnosis, sleep apnea, morbid obesity)? @ -None Was patient admitted / discharged? Hospital course, mention meds given and route, prescriptions, significant lab abnormalities, going to OR and other pertinent info. @ -Patient received medications with improvement of symptoms. Patient is tolerating oral intake. Patient feels much better. Patient updated on need for follow-up. Patient will need scope done. Patient recommended liquid diet. Undiagnosed new problem with uncertain prognosis? @ -No Drug Therapy requiring intensive monitoring for toxicity (Heparin, Nitro, Insulin, Cardizem)? @ -No Were any procedures done? @ -No Diagnosis/symptom? @ -Esophageal foreign body Acute, or Chronic, or Acute on Chronic? @ -Acute Uncomplicated (without systemic symptoms) or Complicated (systemic symptoms)? @ -default Side effects of treatment? @ -No Exacerbation, Progression, or Severe Exacerbation? @ -No Poses a threat to life or bodily function? How? (Chest pain, [place], [place], pneumonia, PE, COPD, DKA, ARF, appy, cholecystitis, CVA, Diverticulitis, Homicidal, Suicidal, threat to staff... and all critical care pts) @ -No Disposition Clinical Impression: Esophageal foreign body Disposition: HOME SELF-CARE Condition: Stable Instructions (If sedation given, give patient instructions): Esophageal Foreign Body (ED) Additional Instructions: Liquid/soft diet until follow-up. Please do follow-up with primary care physician as well as gastroenterology in the next couple days for scope. Return for difficulty breathing, not tolerating oral intake, uncontrolled vomiting, worsening symptoms or other concerns. Prescription sent to pharmacy Prescriptions: Pantoprazole [Protonix] 40 mg PO DAILY #30 tab Is patient prescribed a controlled substance at d/c from ED?: No Referrals: Marilee Rendon DO [Primary Care Provider] - 1-2 days Gabino Diego MD [STAFF PHYSICIAN] - 1-2 days Divina Lara MD [STAFF PHYSICIAN] - 1-2 days Time of Disposition: 15:25
[2023-01-10 13:39] VITALS: RESP 18; TEMP 98.1
[2023-01-10] MEDS ORDERED: SUCRALFATE 1 GM TAB PO STA (14:21)
[2023-01-10 15:21] VITALS: BP 153/88; PULSE 65
== END 2023-01-10 15:42 | disposition home or self-care (01) ==
LOC: SUPCPDRO 13:23 → EC 13:23
DX: T18.128A Food in esophagus causing other injury, initial encounter (principal); E11.9 Type 2 diabetes mellitus without complications; I10 Essential (primary) hypertension; J45.909 Unspecified asthma, uncomplicated; E78.5 Hyperlipidemia, unspecified; F41.9 Anxiety disorder, unspecified; F31.9 Bipolar disorder, unspecified; Z88.2 Allergy status to sulfonamides; Z88.5 Allergy status to narcotic agent; Z88.8 Allergy status to other drugs, medicaments and biological substances; Z79.84 Long term (current) use of oral hypoglycemic drugs; Z79.899 Other long term (current) drug therapy
CPT/HCPCS: 99284; 96374; 96375; J1610; J2765

== ENCOUNTER → 2023-04-12 | Outpatient (CLI) | payer MEDICARE ==
--- NOTE | 2023-04-12 14:36 | US ---
EXAMINATION TYPE: US kidneys/renal and bladder DATE OF EXAM: 04/12/2023 COMPARISON: NONE CLINICAL INDICATION: Female, 73 years old with history of R80.9 PROTEINURIA, UNSPECIFIED; EXAM MEASUREMENTS: Right Kidney: 11.7 x 4.8 x 5.0 cm Left Kidney: 13.8 x 5.4 x 4.3 cm Right Kidney: There is a mid to lower pole cyst measuring 3.1 x 3.1 x 3.3cm. No hydronephrosis. Left Kidney: No hydronephrosis. Bladder: wnl Bilateral Jets seen: no IMPRESSION: No hydronephrosis on either side. A 3.3 cm cyst within the right kidney.
[2023-04-12 18:03] LABS: Basophils # (A) 0.04 X 10*3/uL (0.00-0.10); Basophils % (A) 0.5 %; Eosinophils # (A) 0.26 X 10*3/uL (0.04-0.35); Eosinophils % (A) 3.1 %; HCT 31.7 % (37.2-46.3); HGB 10.4 g/dL (12.0-15.0); Lymphocytes # (A) 1.87 X 10*3/uL (0.90-5.00); Lymphocytes % (A) 22.3 %; MCHC 32.8 g/dL (32.0-37.0); MCV 94.3 FL (80.0-97.0); Mean Platelet Volume 9.2 FL (9.5-12.2); Monocytes % (A) 9.6 %; NRBC Per 100 WBC 0 X 10*3/uL (0.00-0.01); Neutrophils # (A) 5.37 X 10*3/uL (1.80-7.70); Neutrophils % (A) 64.1 %; Platelet Count 354 X 10*3/uL (140-440); RBC 3.36 X 10*6/uL (4.10-5.20); RDW 13.2 % (11.5-14.5); WBC 8.37 X 10*3/uL (4.50-10.00)
[2023-04-12 18:36] LABS: ALT 21 U/L (8-44); AST 24 U/L (13-35); Albumin 4.2 g/dL (3.8-4.9); Albumin/Globulin Ratio 1.68 Ratio (1.60-3.17); Alkaline Phosphatase 85 U/L (41-126); BUN/Creat Ratio 18.64 Ratio (12.00-20.00); Blood Urea Nitrogen 20.5 mg/dL (9.0-27.0); Carbon Dioxide 24.5 mmol/L (21.6-31.8); Chloride 100 mmol/L (96-109); Chol/HDL Ratio 2.55 Ratio; Globulin 2.5 g/dL (1.6-3.3); Glucose 136 mg/dL (70-110); LDL Cholesterol,Calculated 73.1 mg/dL (0.0-131.0); Magnesium 1.7 mg/dL (1.5-2.4); Phosphorus 3.7 mg/dL (2.4-5.1); Potassium 4.8 mmol/L (3.5-5.5); Sodium 138 mmol/L (135-145); Total Bilirubin 0.4 mg/dL (0.3-1.2); Total Protein 6.7 g/dL (6.2-8.2); VLDL Calculation 18.06 mg/dL (5.00-40.00)
== END | disposition home or self-care (01) ==
LOC: RADUSWWP 12:32
PROVIDERS: ATTEND Internal Medicine
DX: N28.1 Cyst of kidney, acquired (principal); E11.9 Type 2 diabetes mellitus without complications; K21.9 Gastro-esophageal reflux disease without esophagitis; R80.9 Proteinuria, unspecified
CPT/HCPCS: 76770; 80053; 80061; 82607; 82746; 83036; 83735; 84100; 84443; 85025

== ENCOUNTER → 2023-04-18 | Outpatient (CLI) | payer MEDICARE ==
[2023-04-18 15:11] LABS: Basophils % (A) 1 %; Eosinophils # (A) 0.2 k/uL (0-0.7); Eosinophils % (A) 3 %; HCT 31.8 % (34.0-46.0); HGB 10.4 gm/dL (11.4-16.0); Lymphocytes # (A) 1.9 k/uL (1.0-4.8); Lymphocytes % (A) 25 %; MCH 31.4 pg (25.0-35.0); MCHC 32.7 g/dL (31.0-37.0); MCV 95.9 fL (80.0-100.0); Mean Platelet Volume 7.6; Monocytes # (A) 0.6 k/uL (0-1.0); Monocytes % (A) 7 %; Neutrophils # (A) 4.8 k/uL (1.3-7.7); Neutrophils % (A) 62 %; Platelet Count 314 k/uL (150-450); RBC 3.32 m/uL (3.80-5.40); RDW 13.1 % (11.5-15.5); Reticulocyte % 1.5 % (0.5-2.0); WBC 7.8 k/uL (3.8-10.6)
[2023-04-18 20:07] LABS: Albumin 4.3 g/dL (3.8-4.9); Protein, Total 6.8 g/dL (6.2-8.2)
[2023-04-18 20:15] LABS: % Iron Saturation 20.32 (12.00-45.00); Ferritin 40.2 ng/mL (10.0-291.0)
[2023-04-19 18:08] LABS: Gamma Globulin 0.88 g/dL (0.70-1.50)
== END | disposition home or self-care (01) ==
LOC: LABWHC1 14:22
PROVIDERS: ATTEND Internal Medicine
DX: D64.9 Anemia, unspecified (principal)
CPT/HCPCS: 36415; 82728; 83540; 83550; 84165; 85025; 85045

== ENCOUNTER → 2023-05-03 | Outpatient (CLI) | payer MEDICARE ==
--- NOTE | 2023-05-03 16:07 | FL ---
EXAMINATION TYPE: FL barium swallow DATE OF EXAM: 05/03/2023 CLINICAL INDICATION: 73-year-old female R1 3.19, other dysphasia, episode of steak getting stuck in t he throat. COMPARISON: None Total Fluoroscopy Time: 3 minutes DAP: 805.67 mGycm2. 58 images obtained. FINDINGS: The swallowing mechanism is normal and hypopharyngeal anatomy is preserved. There is slightly diminis hed peristalsis along the posterior pharyngeal wall. Status post C4-C5 and C5-C6 ACDF. The thoracic portion has a normal course and caliber. However, moderate tertiary peristaltic contract ions are present along with nearly absent secondary stripping waves. This results in prolonged poolin g of contrast throughout the esophagus and delayed clearance. The mucosa is normal and no persistent filling defect is encountered. There is a small sliding hiatal hernia. No gastroesophageal reflux seen during the course of the exam . IMPRESSION: 1. Developing presbyesophagus with nearly absent secondary stripping waves and prolonged pooling of c ontrast throughout the esophagus. 2. Small sliding hiatal hernia. No reflux seen. 3. No stricture or obstruction.
== END | disposition home or self-care (01) ==
LOC: RADUSWWP 09:22
PROVIDERS: ATTEND Internal Medicine Gastroenterology
DX: K22.89 Other specified disease of esophagus (principal); K44.9 Diaphragmatic hernia without obstruction or gangrene
CPT/HCPCS: 74220

== ENCOUNTER 2023-05-30 10:29 | Day surgery (SDC) | payer MEDICARE ==
[2023-05-30 11:28] LABS: Glucose,Whole Blood 159 mg/dL (70-110)
[2023-05-30] MEDS: LACTATED RINGERS 1,000 ML IV ONE (11:30)
[2023-05-30 11:47] VITALS: TEMP 97.7
[2023-05-30] MEDS ORDERED: LIDOCAINE 1% INJ 10MG/ML (20 ML MDV) ONE (12:06)
[2023-05-30] MEDS ORDERED: PROPOFOL 10 MG/ML 20 ML VIAL IV ONE (12:06)
--- NOTE | 2023-05-30 12:20 | P.PCN ---
Date of Procedure: 05/30/23 Procedure(s) Performed: BRIEF HISTORY: Patient is a 73-year-old, pleasant, white female scheduled for an upper endoscopy as a part of evaluation of intermittent dysphagia to solids for the last 4 months duration. She had an episode of acute food impaction in December 2022 and went to the emergency room and symptoms spontaneously resolved.. PROCEDURE PERFORMED: Esophagogastroduodenoscopy with biopsy and dilation. PREOPERATIVE DIAGNOSIS: Intermittent dysphagia to solids and episode of acute food impaction in December 2022. IV sedation per anesthesia. PROCEDURE: After informed consent was obtained, the patient was brought into the endoscopy unit. IV sedation was administered by Anesthesia under continuous monitoring. Initially the Olympus GIF-140 video endoscope was inserted into the mouth. Esophagus intubated without any difficulty. It was gradually advanced into the stomach and duodenum and carefully examined. The bulb and the second part of the duodenum appeared normal. The scope at this time was withdrawn to the stomach, adequately insufflated with air, and upon careful examination, mucosa of the antrum, body, cardia and the fundus appeared normal. The scope was then withdrawn into the esophagus. Small hiatal hernia noted. The GE junction was located at 39 cm from the incisors. There was a widely patent distal esophageal Schatzki's ring that was dilated using 18-20 mm TTS balloon in a sequential fashion for 30 seconds. Following the dilation biopsies were done from the GE junction. The esophagus appeared normal. There were no erosions or ulcerations seen and the patient tolerated the procedure well. IMPRESSION: 1.. Distal esophageal Schatzki's ring status post balloon dilation using 18-20 mm TTS balloon as described above. 2. Small hiatal hernia. RECOMMENDATIONS: The findings of this examination were discussed with the patient as well as her family. She was advised to be on a clear liquid diet for 2 hours. Continue with Protonix 40 mg daily and follow antireflux measures. Follow up in the office in 3 months..
[2023-05-30 12:29] LABS: Glucose,Whole Blood 142 mg/dL (70-110)
[2023-05-30 12:57] VITALS: BP 148/79; PULSE 63; RESP 16
== END 2023-05-30 13:01 | disposition home or self-care (01) ==
LOC: ORWHC2ENDO 10:29
PROVIDERS: ATTEND Internal Medicine Gastroenterology
DX: K21.00 Gastro-esophageal reflux disease with esophagitis, without bleeding (principal); K22.2 Esophageal obstruction; K44.9 Diaphragmatic hernia without obstruction or gangrene; I10 Essential (primary) hypertension; E78.5 Hyperlipidemia, unspecified; E11.9 Type 2 diabetes mellitus without complications; J45.909 Unspecified asthma, uncomplicated; F41.9 Anxiety disorder, unspecified; F31.9 Bipolar disorder, unspecified; Z88.2 Allergy status to sulfonamides; Z88.5 Allergy status to narcotic agent; Z79.02 Long term (current) use of antithrombotics/antiplatelets; Z79.899 Other long term (current) drug therapy; Z79.51 Long term (current) use of inhaled steroids; Z91.048 Other nonmedicinal substance allergy status
CPT/HCPCS: 88305; 43239; 43249; J2001; J2704; C1726

== ENCOUNTER → 2023-09-01 | Outpatient (CLI) | payer MEDICARE ==
--- NOTE | 2023-09-01 10:25 | XR ---
EXAMINATION TYPE: XR shoulder complete RT DATE OF EXAM: 09/01/2023 CLINICAL HISTORY: pain TECHNIQUE: Three views of the right shoulder are obtained. COMPARISON: None FINDINGS: There is no acute fracture/dislocation evident. The acromioclavicular and glenohumeral ana int spaces appear within normal limits. The visualized ribs are intact and unremarkable. IMPRESSION: 1. There is no acute fracture or dislocation. ICD 10 NO FRACTURE, INITIAL EVALUATION
--- NOTE | 2023-09-01 10:28 | XR ---
EXAMINATION TYPE: XR ribs RT w pa chest xray DATE OF EXAM: 09/01/2023 HISTORY: Shortness of breath. COMPARISON: 01/06/2022 TECHNIQUE: Single view of the chest is submitted. FINDINGS: Demonstrated are scattered senescent parenchymal change. There is no evidence for focal infiltrate. The heart is stable. Hilar and mediastinal structures are within normal limits. Degenerative changes are seen of the dorsal spine. IMPRESSION: 1. Chronic changes without evidence for acute pulmonary disease.
[2023-09-02 02:00] LABS: Cryptosporidium Antigen Negative (Negative)
--- NOTE | 2023-09-05 17:11 | MM ---
Reason for Exam: Screening (asymptomatic). Last mammogram was performed 4 year(s) and 4 month(s) ago. Patient History: Menarche at age 18. First Full-Term at age 28. Hysterectomy at age 35. Patient has history of breast feeding. Sister had breast cancer under age 50. Risk Values: Trudy 5 year model risk: 3.2%. NCI Lifetime model risk: 7.7%. Prior Study Comparison: 05/01/2019 Bilateral MG screening mammo w CAD - 2, Unknown. Tissue Density: There are scattered areas of fibroglandular density. Findings: Analyzed By CAD. The pattern is symmetrical. Extensive vascular calcification is present. There are additional punctate and spherical calcifications present bilaterally. No suspicious interval change. No suspicious groups of microcalcifications, spiculated or lobular masses, architectural distortion or other secondary signs of malignancy are mammographically apparent. Overall Assessment: Benign, BI-RAD 2 Management: Screening Mammogram of both breasts in 1 year. A negative mammogram report should not preclude additional follow up of suspicious palpable abnormalities. Patient should continue monthly self breast exam. A clinical breast exam by your physician is recommended on an annual basis and results should be correlated with mammographic findings. Note on Trudy scores and lifetime risk: 1. A Trudy score greater than 3% is considered moderate risk. If this is the case, consider specialist referral to assess eligibility for a risk reducing agent. 2. If overall lifetime risk for the development of breast cancer is 20% or higher, the patient may qualify for future screening with alternating mammogram and breast MRI. Electronically signed and approved by: Marco Patterson D.O. Radiologis
== END | disposition home or self-care (01) ==
LOC: RADMAMWWP 09:18
PROVIDERS: ATTEND Internal Medicine
DX: Z12.31 Encounter for screening mammogram for malignant neoplasm of breast (principal); R19.7 Diarrhea, unspecified; M25.511 Pain in right shoulder; R06.02 Shortness of breath; Z80.3 Family history of malignant neoplasm of breast; W19.XXXA Unspecified fall, initial encounter
CPT/HCPCS: 77063; 77067; 87045; 87046; 87328; 87329; 87798

== ENCOUNTER 2023-09-10 18:22 | Inpatient (IN) | payer MEDICARE ==
--- NOTE | 2023-09-10 18:40 | ED ---
General Adult HPI - General Chief complaint: Back Pain/Injury Stated complaint: Diarrhea Time Seen by Provider: 09/10/23 18:22 Source: patient, EMS, RN notes reviewed, old records reviewed Mode of arrival: EMS Limitations: no limitations - History of Present Illness Initial comments: Is a 73-year-old female presents emergency department with 2 primary complaints. Patient has been having diarrhea since earlier today. States this has been an ongoing issue for her. Usually has 1 day of diarrhea and then it resolves. Is following up with her PCP as well as GI for it. Had another episode today. Also is complaining of right buttocks pain. No known traumas. No falls. Unknown cause. Presents for further evaluation at this time. Vital signs within acceptable limits. Denies any obvious abdominal pain. No recent colonoscopy. Denies chest pain or shortness of breath. Denies fevers. Presents for further evaluation. Patient does have a history of dementia, diabetes, hypertension, hyperlipidemia. Patient also has a history of chronic tremors as well as vertigo. No new medications. No known palliative or provocative factors for patient's pain or diarrhea. Diarrhea is nonbloody in nature. She is not on blood thinners.Presents from [facility] assisted living. - Related Data Home Medications Medication Instructions Recorded Confirmed ALPRAZolam [Xanax] 0.5 mg PO DAILY PRN 11/23/17 09/10/23 Ascorbic Acid [Vitamin C] 500 mg PO DAILY@0800 11/23/17 09/10/23 Cyanocobalamin (Vitamin B-12) 1,000 mcg PO DAILY@79911/23/17 09/10/23 [Vitamin B-12] Donepezil [Aricept] 10 mg PO HS@199911/23/17 09/10/23 Gabapentin [Neurontin] 300 mg PO BID@799,199911/23/17 09/10/23 Memantine [Namenda] 10 mg PO HS@199911/23/17 09/10/23 Multivit/Folic Acid/Vit K1 1 tab PO DAILY@79911/23/17 09/10/23 [One-A-Day Women's 50 Plus Tab] lamoTRIgine 150 mg PO BID@08,199911/23/17 09/10/23 ARIPiprazole [Abilify] 10 mg PO HS@199906/16/21 09/10/23 Albuterol Sulfate [Ventolin HFA] 1 - 2 puff INHALATION RT-Q4H PRN 06/16/21 09/10/23 Benztropine Mesylate 0.5 mg PO DAILY@0806/16/21 09/10/23 Carbidopa-Levodopa 25-250 mg 1 tab PO TID@0800,1399,199906/16/21 09/10/23 [Sinemet 25-250 mg] Cholecalciferol [Vitamin D3 (25 50 mcg PO HS@199906/16/21 09/10/23 Mcg = 1000 Iu)] Docusate [Colace] 100 mg PO BID@799,199906/16/21 09/10/23 Ferrous Sulfate [Iron (65 MG 325 mg PO HS@199906/16/21 09/10/23 Elemental)] Irbesartan [Avapro] 300 mg PO DAILY@139906/16/21 09/10/23 Melatonin 3 mg PO HS@199906/16/21 09/10/23 buPROPion HCL [Wellbutrin XL] 300 mg PO DAILY@79906/16/21 09/10/23 hydroCHLOROthiazide [Hydrodiuril] 25 mg PO DAILY@79906/16/21 09/10/23 OLANZapine [ZyPREXA] 2.5 mg PO HS@199912/20/22 09/10/23 Aspirin 81 mg PO DAILY@0809/10/23 09/10/23 Atorvastatin [Lipitor] 80 mg PO HS@199909/10/23 09/10/23 Biotin 1000mcg 1 tab PO DAILY@169909/10/23 09/10/23 Clopidogrel [Plavix] 75 mg PO DAILY@0809/10/23 09/10/23 NIFEdipine XL [Procardia Xl] 90 mg PO DAILY@139909/10/23 09/10/23 Pantoprazole [Protonix] 40 mg PO DAILY@0709/10/23 09/10/23 Pioglitazone [Actos] 30 mg PO DAILY@0809/10/23 09/10/23 Spironolactone [Aldactone] 50 mg PO HS@199909/10/23 09/10/23 carvediloL [Coreg] 12.5 mg PO BID@0800,1700 09/10/23 09/10/23 metFORMIN HCL [Glucophage] 1,000 mg PO BID@0800,1700 09/10/23 09/10/23 Allergies Allergy/AdvReac Type Severity Reaction Status Date / Time codeine Allergy Itching Verified 09/10/23 20:09 Sulfa (Sulfonamide Allergy Rash/Hives Verified 09/10/23 20:09 Antibiotics) tree nut [Nut] Allergy Anaphylaxis Verified 09/10/23 20:09 Review of Systems ROS Statement: Those systems with pertinent positive or pertinent negative responses have been documented in the HPI. Review of Systems: CONST: Denies fever EYES: Denies blurry vision ENT: Denies nasal congestion C/V: Denies Chest pain RESP: Denies shortness of breath GI: Endorses diarrhea : Denies dysuria SKIN: Denies rash. MSK: Endorses right buttocks pain NEURO: Denies headache ROS Other: All systems not noted in ROS Statement are negative. Past Medical History Past Medical History: Asthma, Dementia, Diabetes Mellitus, Hyperlipidemia, Hypertension, Pneumonia, Syncope Additional Past Medical History / Comment(s): Chronic vertigo if pt lies on her sides, NIDDM type II, neuropathy bilateral hands and occasionally in feet, "preparkinsonism", tremors, cardiac murmur, pancreatitis, R shoulder discomfort since injury 2 weeks ago, anemia, rare UTI, constipation. History of Any Multi-Drug Resistant Organisms: None Reported Past Surgical History: Appendectomy, Cholecystectomy, Hysterectomy, Orthopedic Surgery Additional Past Surgical History / Comment(s): Eploratory with appendectomy, cervical fusion. Past Anesthesia/Blood Transfusion Reactions: No Reported Reaction Past Psychological History: Anxiety, Bipolar, Depression Smoking Status: Never smoker Past Alcohol Use History: Rare Past Drug Use History: None Reported - Past Family History Mother History Unknown: Yes Family Medical History: Coronary Artery Disease (CAD), Eye Disorder Additional Family Medical History / Comment(s): Mother of heart problems. She had macular degeneration Father Family Medical History: Diabetes Mellitus Additional Family Medical History / Comment(s): Father of diabetic complications. General Exam - General Exam Comments Initial Comments: General: Appears in no acute distress. HEAD: Normal with no signs of head trauma. EYES: PERRLA, EOMI, conjunctiva normal, no discharge. ENT: Hearing grossly intact, normal oropharynx. RESPIRATORY: Clear breath sounds bilaterally. No wheezes, rales, or rhonchi. C/V: Regular rate and rhythm. S1 and S2 auscultated, no edema, peripheral pulses 2+ and intact throughout ABD: Abd is soft, nontender, nondistended. Right buttocks shows no obvious finding of trauma or any other acute process. EXT: Normal range of motion, no obvious deformity SKIN: No rashes or lesions observed on exposed skin. NEURO: Alert and oriented x 3. No obvious focal deficits. Limitations: no limitations Course Vital Signs 09/10/23 09/10/23 18:28 20:21 Temperature 98.3 F Pulse Rate 65 81 Respiratory 18 18 Rate Blood Pressure 187/90 181/62 O2 Sat by Pulse 96 96 Oximetry Medical Decision Making - Medical Decision Making Was pt. sent in by a medical professional or institution (, PA, WINCH TRUCK OPERATOR, urgent care, hospital, or jail...) When possible be specific @ -Sent from assisted living facility, [facility] for evaluation. Did you speak to anyone other than the patient for history (EMS, parent, family, police, friend...)? What history was obtained from this source @ -No Did you review nursing and triage notes (agree or disagree)? Why? @ -I reviewed and agree with nursing and triage notes Were old charts reviewed (outside hosp., previous admission, EMS record, old EKG, old radiological studies, urgent care reports/EKG's, jail records)? Report findings @ -Reviewed previous chart at our facility which shows past medical history significant for dementia. Differential Diagnosis (chest pain, altered mental status, abdominal pain women, abdominal pain men, vaginal bleeding, weakness, fever, dyspnea, syncope, headache, dizziness, GI bleed, back pain, seizure, CVA, palpatations, mental health, musculoskeletal)? @ -Differential Abdominal Pain Women: Appendicitis, Cholecystitis, diverticulosis, ischemic bowel, pancreatitis, hepatitis, UTI, gastroenteritis, AAA, incarcerated hernia, bowel obstruction, constipation, inflammatory bowel, hepatitis, peptic ulcer disease, splenic infarction, perforated viscus, vulvitis, ovarian torsion, PID, kidney stone, placenta abruption, this is not meant to be an all-inclusive list EKG interpreted by me (3pts min.). @ -As above X-rays interpreted by me (1pt min.). @ -None done CT interpreted by me (1pt min.). @ -CT reveals distended urinary bladder with hydroureter. Concern for urinary retention. U/S interpreted by me (1pt. min.). @ -None done What testing was considered but not performed or refused? (CT, X-rays, U/S, labs)? Why? @ -None What meds were considered but not given or refused? Why? @ -None Did you discuss the management of the patient with other professionals (professionals i.e. , PA, WINCH TRUCK OPERATOR, lab, RT, psych nurse, social media project manager, pilot plant technician, teacher, aoc aadc operations staff officer, family service caseworker)? Give summary @ -Discussed with Dr. Baxter who accepted the admission. Was smoking cessation discussed for >3mins.? @ -No Was critical care preformed (if so, how long)? @ -No Were there social determinants of health that impacted care today? How? (Homelessness, low income, unemployed, alcoholism, drug addiction, transportation, low edu. Level, literacy, decrease access to med. care, nursing home, rehab)? @ -No Was there de-escalation of care discussed even if they declined (Discuss DNR or withdrawal of care, Hospice)? DNR status @ -No What co-morbidities impacted this encounter? (DM, HTN, Smoking, COPD, CAD, C ancer, CVA, ARF, Chemo, Hep., AIDS, mental health diagnosis, sleep apnea, morbid obesity)? @ -None Was patient admitted / discharged? Hospital course, mention meds given and route, prescriptions, significant lab abnormalities, going to OR and other pertinent info. @ -Based on patient's presentation and physical exam, presents with diarrhea as well as right buttocks pain. We will obtain CT abdomen pelvis in addition to abdominal labs. Exam is otherwise unremarkable. She will receive IV fluids, Protonix, as well as oral Tylenol. She was in agreement this plan. Vital signs are within acceptable limits. Patient's laboratory studies returned for chronic anemia with hemoglobin of 10.7 which is stable for the patient. Patient has an DEE DEE with almost doubling of her creatinine to 1.93 and decreased GFR. Remainder the labs unremarkable. I discussed results with patient. We will obtain CT without contrast at this time of the abdomen. She denies any urinary urinary complaints. Patient CT of the abdomen shows dilation of the renal collecting systems as well as distended urinary bladder concerning for urinary retention. When I discussed this with the patient, she denies any urinary retention or complaints however postvoid residual does reveal over 900 cc of urine. Therefore Cazares catheter will be placed and patient will be admitted to the hospital. Patient was in agreement t his plan. I spoke with the admitting team, Dr. Baxter who accepted the admission. Undiagnosed new problem with uncertain prognosis? @ -No Drug Therapy requiring intensive monitoring for toxicity (Heparin, Nitro, Insulin, Cardizem)? @ -No Were any procedures done? @ -No Diagnosis/symptom? @ -Urinary retention, DEE DEE Acute, or Chronic, or Acute on Chronic? @ -Acute Uncomplicated (without systemic symptoms) or Complicated (systemic symptoms)? @ -Complicated Side effects of treatment? @ -None Exacerbation, Progression, or Severe Exacerbation] @ -No Poses a threat to life or bodily function? @ -Yes - Lab Data Result diagrams: 09/10/23 18:49 09/10/23 18:49 Lab Results 09/10/23 09/10/23 09/10/23 Range/Units 18:49 18:49 18:49 WBC 10.5 (3.8-10.6) k/uL RBC 3.48 L (3.80-5.40) m/uL Hgb 10.7 L (11.4-16.0) gm/dL Hct 32.9 L (34.0-46.0) % MCV 94.4 (80.0-100.0) fL MCH 30.8 (25.0-35.0) pg MCHC 32.6 (31.0-37.0) g/dL RDW 13.4 (11.5-15.5) % Plt Count 292 (150-450) k/uL MPV 7.5 Neutrophils % 70 % Lymphocytes % 16 % Monocytes % 9 % Eosinophils % 2 % Basophils % 0 % Neutrophils # 7.3 (1.3-7.7) k/uL Lymphocytes # 1.7 (1.0-4.8) k/uL Monocytes # 1.0 (0-1.0) k/uL Eosinophils # 0.2 (0-0.7) k/uL Basophils # 0.0 (0-0.2) k/uL PT 10.4 (10.0-12.5) sec INR 0.9 (<1.2) APTT 28.4 (22.0-30.0) sec Sodium 138 (137-145) mmol/L Potassium 5.1 (3.5-5.1) mmol/L Chloride 105 (98-107) mmol/L Carbon Dioxide 21 L (22-30) mmol/L Anion Gap 12 mmol/L BUN 38 H (7-17) mg/dL Creatinine 1.93 H (0.52-1.04) mg/dL Est GFR (CKD-EPI)AfAm 29 (>60 ml/min/1.73 sqM) Est GFR (CKD-EPI)NonAf 25 (>60 ml/min/1.73 sqM) Glucose 99 (74-99) mg/dL Calcium 9.6 (8.4-10.2) mg/dL Magnesium 1.8 (1.6-2.3) mg/dL Total Bilirubin 0.5 (0.2-1.3) mg/dL AST 24 (14-36) U/L ALT 12 (4-34) U/L Alkaline Phosphatase 111 (38-126) U/L Total Protein 7.0 (6.3-8.2) g/dL Albumin 4.4 (3.5-5.0) g/dL Amylase 70 (30-110) U/L Lipase 175 (23-300) U/L Disposition Clinical Impression: Urinary retention, DEE DEE (acute kidney injury) Disposition: ADMITTED IP TO THIS [facility] Condition: Stable Referrals: Ming Lacy DO [Primary Care Provider] - 1-2 days Time of Disposition: 20:16
[2023-09-10] MEDS: SODIUM CHLORIDE 0.9% 1,000 ML IV STA (18:55)
[2023-09-10] MEDS: PANTOPRAZOLE 40 MG/10 ML VIAL IVP STA (18:56)
[2023-09-10] MEDS: ACETAMINOPHEN TAB 500 MG TAB PO STA (18:58)
[2023-09-10 19:04] LABS: Basophils % (A) 0 %; Eosinophils # (A) 0.2 k/uL (0-0.7); Eosinophils % (A) 2 %; HCT 32.9 % (34.0-46.0); HGB 10.7 gm/dL (11.4-16.0); Lymphocytes # (A) 1.7 k/uL (1.0-4.8); Lymphocytes % (A) 16 %; MCH 30.8 pg (25.0-35.0); MCHC 32.6 g/dL (31.0-37.0); MCV 94.4 fL (80.0-100.0); Mean Platelet Volume 7.5; Monocytes % (A) 9 %; Neutrophils # (A) 7.3 k/uL (1.3-7.7); Neutrophils % (A) 70 %; Platelet Count 292 k/uL (150-450); RBC 3.48 m/uL (3.80-5.40); RDW 13.4 % (11.5-15.5); WBC 10.5 k/uL (3.8-10.6)
[2023-09-10 19:14] LABS: ALT 12 U/L (4-34); AST 24 U/L (14-36); African American GFR (CKD) 29 (>60 ml/min/1.73 sqM); Albumin 4.4 g/dL (3.5-5.0); Alkaline Phosphatase 111 U/L (38-126); Amylase 70 U/L (30-110); Anion Gap 12 mmol/L; Blood Urea Nitrogen 38 mg/dL (7-17); Calcium 9.6 mg/dL (8.4-10.2); Carbon Dioxide 21 mmol/L (22-30); Chloride 105 mmol/L (98-107); Glucose 99 mg/dL (74-99); Lipase 175 U/L (23-300); Magnesium 1.8 mg/dL (1.6-2.3); Non-African American GFR(CKD) 25 (>60 ml/min/1.73 sqM); Potassium 5.1 mmol/L (3.5-5.1); Sodium 138 mmol/L (137-145); Total Bilirubin 0.5 mg/dL (0.2-1.3)
[2023-09-10 19:15] LABS: INR 0.9 (<1.2); Partial Thromboplastin Time 28.4 sec (22.0-30.0); Prothrombin Time 10.4 sec (10.0-12.5)
--- NOTE | 2023-09-10 19:53 | CT ---
EXAMINATION TYPE: CT abdomen pelvis wo con CT DLP: 709.3 mGycm, Automated exposure control for dose reduction was used. DATE OF EXAM: 09/10/2023 7:40 PM COMPARISON: None CLINICAL INDICATION:Female, 73 years old with history of abdominal pain; Rt side abdominal pain. TECHNIQUE: Axial CT abdomen pelvis wo con;Sagittal and coronal reformats were created on a separate workstation. Contrast used: mL of , (none if empty) Oral contrast used: without Oral Contrast (none if empty) FINDINGS: LOWER CHEST: Heart is enlarged for size. Mitral valve annular cusp patient's. Coronary artery atheros clerosis. ABDOMEN LIVER: Unremarkable GALLBLADDER AND BILE DUCTS: The gallbladder is surgically absent. PANCREAS: Unremarkable. SPLEEN: Unremarkable. ADRENAL GLANDS: Unremarkable. KIDNEYS AND URETERS: Mild dilation of the collecting systems no obstructive uropathy. No evidence of renal calculus. The ureters are unremarkable. Right renal cortical cyst. PELVIS BLADDER: Distended. REPRODUCTIVE: The uterus is surgically absent. ABDOMEN & PELVIS STOMACH AND BOWEL: . Scattered diverticula are noted throughout the colon. No evidence of bowel obstr uction. PERITONEUM/RETROPERITONEUM: No evidence of pneumoperitoneum or free fluid. VASCULATURE: Mild atherosclerotic calcifications are present throughout the abdominal aorta and its b ranches. No evidence of aortic aneurysm. MUSCULOSKELETAL: No acute osseous abnormalities. Mild disc degeneration changes are present throughou t the thoracolumbar spine. LYMPH NODES: No gross evidence for lymphadenopathy. SOFT TISSUE/ABDOMINAL WALL: Unremarkable IMPRESSION: 1. No evidence for acute right-sided abdominal process. 2. Appendix is not visualized and no other signs of appendicitis. 3. Dilation of the bilateral renal collecting systems with distended urinary bladder. Findings likel y secondary to large amount of urine in the bladder. 4. Cardiomegaly. 5. Coronary artery atherosclerosis.
[2023-09-10] MEDS ORDERED: IBUPROFEN 400 MG TAB PO PRN (20:29)
[2023-09-10 20:45] LABS: Appearance,Urine Clear (Clear); Bilirubin,Urine Negative (Negative); Blood,Urine Negative (Negative); Color,Urine Colorless; Glucose,Urine (UA) Negative (Negative); Ketones,Urine Negative (Negative); Leukocyte Esterase,Urine Negative (Negative); Nitrite,Urine Negative (Negative); PH, Urine 6.5 (5.0-8.0); Protein,Urine Negative (Negative); Specific Gravity,Urine 1.005 (1.001-1.035); Urobilinogen,Urine <2.0 mg/dL (<2.0)
[2023-09-10] MEDS: SODIUM CHLORIDE 0.9% 1,000 ML IV SCH (21:23)
[2023-09-10] MEDS: KETOROLAC 15 MG/ML 1 ML VIAL IVP STA (21:26)
--- NOTE | 2023-09-11 00:15 | P.HPIM ---
History of Present Illness H&P Date: 09/10/23 Chief Complaint: Lower back pain 73-year-old female with prediabetes, asthma, hypertension Patient coming in today for evaluation of lower back pain localized to the right buttock area she describes it as sharp severe sharp pain that started all of a sudden while she was at [employer]enominational today denies any associated radiculopathy denies any urinary or bowel incontinence denies any saddle numbness or paresthesia. She denies that this ever happened before denies any injury trauma or fall however when the pain started she was in the seated position and was unable to stand up for which EMS was notified and she was brought to the hospital for evaluation She also reports chronic diarrhea that is been going on for 3 months she claims that she has done some infectious workup as an outpatient with her primary care doctor about a week ago and she was told that there is no infection. She denies any GI bleeding Patient denies any use of recent antibiotics or recent travel or hospital stay. Patient denies tobacco smoking illicit drugs or heavy alcohol review of systems Pertinent positives as noted in HPI. All other systems were reviewed and are negative on exam Constitutional: No acute distress, conversant, pleasant Eyes: Anicteric sclerae, moist conjunctiva, Pupils equal round reactive to light ENMT: NC/AT Oropharynx clear, no erythema, or exudates Neck: Supple, no masses, or JVD No carotid bruits No thyromegaly Lungs: Clear to auscultation Clear to percussion Normal respiratory effort, no accessory muscle use Cardiovascular: Heart regular in rate and rhythm, Systolic murmurs, no gallops, or rubs No peripheral edema Abdominal: Soft Nontender, no guarding, rebound or rigidity Abdomen moving with respiration Normoactive bowel sounds Extremities: No digital cyanosis No clubbing Pedal pulses intact and symmetrical Radial pulses intact and symmetrical No calf tenderness Psychiatric: Alert and oriented to person, place Neuro Muscles Strength 5/5 in bilateral upper extremity and left lower extremity, limited exam of her left right lower extremity due to severe buttock pain when moving her right lower extremity Sensation to light touch grossly present throughout Cranial nerves II-XII grossly intact Past Medical History Past Medical History: Asthma, Dementia, Diabetes Mellitus, Hyperlipidemia, Hypertension, Pneumonia, Syncope Additional Past Medical History / Comment(s): Chronic vertigo if pt lies on her sides, NIDDM type II, neuropathy bilateral hands and occasionally in feet, "preparkinsonism", tremors, cardiac murmur, pancreatitis, R shoulder discomfort since injury 2 weeks ago, anemia, rare UTI, constipation. History of Any Multi-Drug Resistant Organisms: None Reported Past Surgical History: Appendectomy, Cholecystectomy, Hysterectomy, Orthopedic Surgery Additional Past Surgical History / Comment(s): Eploratory with appendectomy, cervical fusion. Past Anesthesia/Blood Transfusion Reactions: No Reported Reaction Past Psychological History: Anxiety, Bipolar, Depression Smoking Status: Never smoker Past Alcohol Use History: Rare Past Drug Use History: None Reported - Past Family History Mother History Unknown: Yes Family Medical History: Coronary Artery Disease (CAD), Eye Disorder Additional Family Medical History / Comment(s): Mother of heart problems. She had macular degeneration Father Family Medical History: Diabetes Mellitus Additional Family Medical History / Comment(s): Father of diabetic comp lications. Medications and Allergies Home Medications Medication Instructions Recorded Confirmed Type ALPRAZolam [Xanax] 0.5 mg PO DAILY PRN 11/23/17 09/10/23 History Ascorbic Acid [Vitamin C] 500 mg PO DAILY@79911/23/17 09/10/23 History Cyanocobalamin (Vitamin B-12) 1,000 mcg PO DAILY@79911/23/17 09/10/23 History [Vitamin B-12] Donepezil [Aricept] 10 mg PO HS@199911/23/17 09/10/23 History Gabapentin [Neurontin] 300 mg PO BID@08,199911/23/17 09/10/23 History Memantine [Namenda] 10 mg PO HS@199911/23/17 09/10/23 History Multivit/Folic Acid/Vit K1 1 tab PO DAILY@0800 11/23/17 09/10/23 History [One-A-Day Women's 50 Plus Tab] lamoTRIgine 150 mg PO BID@08,199911/23/17 09/10/23 History ARIPiprazole [Abilify] 10 mg PO HS@199906/16/21 09/10/23 History Albuterol Sulfate [Ventolin HFA] 1 - 2 puff INHALATION RT-Q4H PRN 06/16/21 09/10/23 History Benztropine Mesylate 0.5 mg PO DAILY@0800 06/16/2109/09/24 History Carbidopa-Levodopa 25-250 mg 1 tab PO TID@0800,1399,199906/16/21 09/10/23 History [Sinemet 25-250 mg] Cholecalciferol [Vitamin D3 (25 50 mcg PO HS@199906/16/21 09/10/23 History Mcg = 1000 Iu)] Docusate [Colace] 100 mg PO BID@08,199906/16/21 09/10/23 History Ferrous Sulfate [Iron (65 MG 325 mg PO HS@199906/16/21 09/10/23 History Elemental)] Irbesartan [Avapro] 300 mg PO DAILY@139906/16/21 09/10/23 History Melatonin 3 mg PO HS@199906/16/21 09/10/23 History buPROPion HCL [Wellbutrin XL] 300 mg PO DAILY@0806/16/21 09/10/23 History hydroCHLOROthiazide [Hydrodiuril] 25 mg PO DAILY@0806/16/21 09/10/23 History OLANZapine [ZyPREXA] 2.5 mg PO HS@199912/20/22 09/10/23 History Aspirin 81 mg PO DAILY@79909/10/23 09/10/23 History Atorvastatin [Lipitor] 80 mg PO HS@199909/10/23 09/10/23 History Biotin 1000mcg 1 tab PO DAILY@169909/10/23 09/10/23 History Clopidogrel [Plavix] 75 mg PO DAILY@0809/10/23 09/10/23 History NIFEdipine XL [Procardia Xl] 90 mg PO DAILY@139909/10/23 09/10/23 History Pantoprazole [Protonix] 40 mg PO DAILY@0709/10/23 09/10/23 History Pioglitazone [Actos] 30 mg PO DAILY@0809/10/23 09/10/23 History Spironolactone [Aldactone] 50 mg PO HS@199909/10/23 09/10/23 History carvediloL [Coreg] 12.5 mg PO BID@0800,1700 09/10/23 09/10/23 History metFORMIN HCL [Glucophage] 1,000 mg PO BID@0800,1700 09/10/23 09/10/23 History Allergies Allergy/AdvReac Type Severity Reaction Status Date / Time codeine Allergy Itching Verified 09/10/23 20:09 Sulfa (Sulfonamide Allergy Rash/Hives Verified 09/10/23 20:09 Antibiotics) tree nut [Nut] Allergy Anaphylaxis Verified 09/10/23 20:09 Physical Exam Vitals: Vital Signs Temp Pulse Resp BP Pulse Ox 09/10/23 20:21 81 18 181/62 96 09/10/23 18:28 98.3 F 65 18 187/90 96 Intake and Output 09/10/23 09/10/23 09/11/23 14:59 22:59 06:59 Output Total 1000 Balance -1000 Output: Urine 1000 Uretheral (Cazares) 1000 Other: Weight 87.543 kg Results CBC & Chem 7: 09/10/23 18:49 09/10/23 18:49 Labs: Abnormal Lab Results - Last 24 Hours (Table) 09/10/23 09/10/23 Range/Units 18:49 18:49 RBC 3.48 L (3.80-5.40) m/uL Hgb 10.7 L (11.4-16.0) gm/dL Hct 32.9 L (34.0-46.0) % Carbon Dioxide 21 L (22-30) mmol/L BUN 38 H (7-17) mg/dL Creatinine 1.93 H (0.52-1.04) mg/dL Assessment and Plan Assessment: 73-year-old female with Alzheimer, prediabetes coming in for sudden onset severe right buttock pain I discussed the case with ED doctor and accepted the admission for pain control and acute kidney injury with anticipated length of stay less than 2 midnights Acute kidney injury suspected secondary to urinary retention Urine analysis not indicative of UTI CT of the abdomen showed no acute intra-abdominal pathology but was suggestive of urinary bladder changes suggestive of urinary retention Neurology consult Avoid nephrotoxic meds Hold diuretics Hold losartan IV fluid hydration with normal saline Monitor renal function Sodium 138 potassium 5.1 BUN 38 creatinine 1.9 Monitor urine output Severe right buttock pain CT imaging of the abdomen pelvis showed no acute pathology related to that region Physical therapy consult Pain control with Tylenol as needed Discontinue ibuprofen secondary to acute kidney injury Hypertension Continue with Coreg Prediabetes Hold oral hypoglycemic agents Hold metformin Insulin sliding scale Full code DVT prophylaxis heparin subcu 3 times daily 5000 units
[2023-09-11] MEDS ORDERED: DEXTROSE 50% SYRINGE 50 ML IVP PRN ×2 (00:16)
[2023-09-11] MEDS: HEPARIN SODIUM,PORCINE 5,000 UNIT/ML 1 ML VIAL SQ SCH (00:59)
[2023-09-11] MEDS: ACETAMINOPHEN TAB 325 MG TAB PO PRN (03:48)
[2023-09-11 07:52] LABS: Glucose,Whole Blood 128 mg/dL (70-110)
[2023-09-11] MEDS ORDERED: PIOGLITAZONE 30 MG TAB PO SCH (08:00)
[2023-09-11] MEDS ORDERED: metFORMIN 500 MG TAB PO SCH (08:00)
[2023-09-11] MEDS ORDERED: hydroCHLOROthiazide 25 MG TAB PO SCH (08:00)
[2023-09-11] MEDS: INSULIN ASPART (NovoLOG) 100 UNIT/ML VIAL SQ SCH (09:01)
[2023-09-11] MEDS: BENZTROPINE MESYLATE 0.5 MG TAB PO SCH (09:16)
[2023-09-11] MEDS: CARBIDOPA-LEVODOPA 25-250 MG 1 EACH TAB PO SCH (09:17)
[2023-09-11] MEDS: CLOPIDOGREL 75 MG TAB PO SCH (09:17)
[2023-09-11] MEDS: buPROPion XL 300 MG TAB.ER.24H PO SCH (09:17)
[2023-09-11] MEDS: DOCUSATE 100 MG CAP PO SCH (09:18)
[2023-09-11] MEDS: PANTOPRAZOLE 40 MG TABLET PO SCH (09:18)
[2023-09-11] MEDS: ASPIRIN 81 MG PO SCH (09:18)
[2023-09-11] MEDS: carvediloL 12.5 MG TAB PO SCH (09:18)
[2023-09-11] MEDS: GABAPENTIN 300 MG CAP PO SCH (09:18)
[2023-09-11] MEDS: lamoTRIgine 100 MG TAB PO SCH (09:18)
[2023-09-11] MEDS: NIFEdipine XL 90 MG TAB.ER.24 PO SCH (10:13)
[2023-09-11 10:49] LABS: Basophils # (A) 0.04 X 10*3/uL (0.00-0.10); Basophils % (A) 0.5 %; Eosinophils # (A) 0.19 X 10*3/uL (0.04-0.35); Eosinophils % (A) 2.6 %; HCT 32.3 % (37.2-46.3); Lymphocytes # (A) 1.61 X 10*3/uL (0.90-5.00); Lymphocytes % (A) 21.9 %; MCH 29.9 pg (27.0-32.0); MCV 96.7 FL (80.0-97.0); Mean Platelet Volume 10.1 FL (9.5-12.2); Monocytes # (A) 0.96 X 10*3/uL (0.20-1.00); Monocytes % (A) 13.1 %; NRBC Per 100 WBC 0 X 10*3/uL (0.00-0.01); Neutrophils # (A) 4.53 X 10*3/uL (1.80-7.70); Neutrophils % (A) 61.8 %; Platelet Count 301 X 10*3/uL (140-440); RBC 3.34 X 10*6/uL (4.10-5.20); RDW 13.3 % (11.5-14.5); WBC 7.34 X 10*3/uL (4.50-10.00)
[2023-09-11 10:59] LABS: ALT 18 U/L (8-44); AST 19 U/L (13-35); Albumin 4.1 g/dL (3.8-4.9); Albumin/Globulin Ratio 1.71 Ratio (1.60-3.17); Alkaline Phosphatase 110 U/L (41-126); BUN/Creat Ratio 18.31 Ratio (12.00-20.00); Blood Urea Nitrogen 23.8 mg/dL (9.0-27.0); Calcium 9.1 mg/dL (8.7-10.3); Carbon Dioxide 22.6 mmol/L (21.6-31.8); Chloride 107 mmol/L (96-109); Globulin 2.4 g/dL (1.6-3.3); Glucose 111 mg/dL (70-110); Potassium 4.9 mmol/L (3.5-5.5); Sodium 143 mmol/L (135-145); Total Bilirubin 0.4 mg/dL (0.3-1.2); Total Protein 6.5 g/dL (6.2-8.2)
[2023-09-11] MEDS: MORPHINE SULFATE 4 MG/ML SYRINGE IV PRN (11:41)
--- NOTE | 2023-09-11 12:24 | CT ---
EXAMINATION TYPE: CT lumbar spine wo con DATE OF EXAM: 09/11/2023 COMPARISON: None HISTORY: 73-year-old female lumbar pain with rt leg numbness and retention TECHNIQUE: Contiguous axial scanning of the lumbar spine without IV contrast. Coronal and sagittal re constructions performed. CT DLP: 962 mGycm Automated exposure control for dose reduction was used. FINDINGS: Cholecystectomy clips. Small hiatal hernia. Partially visualized 3.0 cm cyst posterior right kidney. Mild degenerative disc disease characterized by disc bulging throughout. Moderate hypertrophic facet arthropathy throughout especially mid to lower lumbar spine. Trace grade 1 anterolisthesis L3-L4. Remaining alignment is maintained. Chronic superior endplate deformity T12. Possible right paracentral extrusion and some superior migration of disc material at L3-L4. This may encroach onto the right lateral recess and affect the traversing right L3 or L4 nerve roots. Mild left-sided neuroforaminal narrowing L4-L5 and L5-S1. IMPRESSION: 1. POSSIBLE RIGHT PARACENTRAL DISC EXTRUSION WITH SOME SUPERIOR MIGRATION OF DISC MATERIAL AT L3-L4. THIS MAY ENCROACH ONTO THE RIGHT LATERAL RECESS AND AFFECT THE TRAVERSING RIGHT L3 OR L4 NERVE ROOTS. CONSIDER MRI FOR BETTER ASSESSMENT. 2. BACKGROUND MILD DEGENERATIVE DISC DISEASE AND MODERATE FACET ARTHROPATHY. TRACE GRADE 1 ANTEROLIST HESIS L3-L4. 3. Chronic superior end plate deformity of T12.
[2023-09-11 12:27] LABS: Glucose,Whole Blood 209 mg/dL (70-110)
--- NOTE | 2023-09-11 13:13 | P.CNOR ---
History of Present Illness - [facility] Consult date: 09/11/23 Requesting physician: Haja Wild Consult reason: other (lumbar back pain, RLE numbness, Urinary Retention) History of present illness: Patient is a 73-year-old female who presented to the hospital yesterday with chief complaint of sciatica and diarrhea. Patient does have a past medical history significant for asthma, hypertension, prediabetes. Orthopedics was consulted due to right lower extremity radiculopathy. Patient was seen at bedside this morning on 5 N. Patient states yesterday when she was leaving latter-day she began having right-sided buttocks pain with numbness and tingling extending down the backside of the right leg. Patient denies any recent falls or traumas. Patient states this is a new issue. Patient says since yesterday the numbness and tingling is waxing and waning. She states the pain does increase when she raises her right leg straight up while resting in bed. She says she does get some relief when she bends her knee towards her chest. Patient says she does have a previous orthopedic surgical history for cervical fusion around 20 years ago. Patient says she does have a couple different vertebral compression fractures. Patient states normally she does use a walker to aid her in ambulation. Patient denies any saddle anesthesia. Patient denies loss of bowel/bladder control. Patient says normally she takes Aleve for pain. Patient denies any previous history of stroke or heart attack. Patient denies chest pain, fever, shortness of breath, nausea, vomiting, change in vision, loss of bowel/bladder control. Past Medical History Past Medical History: Asthma, Dementia, Diabetes Mellitus, Hyperlipidemia, Hypertension, Pneumonia, Syncope Additional Past Medical History / Comment(s): Chronic vertigo if pt lies on her sides, NIDDM type II, neuropathy bilateral hands and occasionally in feet, "preparkinsonism", tremors, cardiac murmur, pancreatitis, R shoulder discomfort since injury 2 weeks ago, anemia, rare UTI, constipation. History of Any Multi-Drug Resistant Organisms: None Reported Past Surgical History: Appendectomy, Cholecystectomy, Hysterectomy, Orthopedic Surgery Additional Past Surgical History / Comment(s): Eploratory with appendectomy, cervical fusion. Past Anesthesia/Blood Transfusion Reactions: No Reported Reaction Past Psychological History: Anxiety, Bipolar, Depression Smoking Status: Never smoker Past Alcohol Use History: Rare Past Drug Use History: None Reported - Past Family History Mother History Unknown: Yes Family Medical History: Coronary Artery Disease (CAD), Eye Disorder Additional Family Medical History / Comment(s): Mother of heart problems. She had macular degeneration Father Family Medical History: Diabetes Mellitus Additional Family Medical History / Comment(s): Father of diabetic complications. Medications and Allergies Home Medications Medication Instructions Recorded Confirmed Type ALPRAZolam [Xanax] 0.5 mg PO DAILY PRN 11/23/17 09/10/23 History Ascorbic Acid [Vitamin C] 500 mg PO DAILY@0800 11/23/17 09/10/23 History Cyanocobalamin (Vitamin B-12) 1,000 mcg PO DAILY@0800 11/23/17 09/10/23 History [Vitamin B-12] Donepezil [Aricept] 10 mg PO HS@199911/23/17 09/10/23 History Gabapentin [Neurontin] 300 mg PO BID@0800,199911/23/17 09/10/23 History Memantine [Namenda] 10 mg PO HS@199911/23/17 09/10/23 History Multivit/Folic Acid/Vit K1 1 tab PO DAILY@0800 11/23/17 09/10/23 History [One-A-Day Women's 50 Plus Tab] lamoTRIgine 150 mg PO BID@0800,199911/23/17 09/10/23 History ARIPiprazole [Abilify] 10 mg PO HS@199906/16/21 09/10/23 History Albuterol Sulfate [Ventolin HFA] 1 - 2 puff INHALATION RT-Q4H PRN 06/16/21 09/10/23 History Benztropine Mesylate 0.5 mg PO DAILY@0800 06/16/21 09/10/23 History Carbidopa-Levodopa 25-250 mg 1 tab PO TID@0800,1400,199906/16/21 09/10/23 History [Sinemet 25-250 mg] Cholecalciferol [Vitamin D3 (25 50 mcg PO HS@199906/16/21 09/10/23 History Mcg = 1000 Iu)] Docusate [Colace] 100 mg PO BID@0800,199906/16/21 09/10/23 History Ferrous Sulfate [Iron (65 MG 325 mg PO HS@199906/16/21 09/10/23 History Elemental)] Irbesartan [Avapro] 300 mg PO DAILY@139906/16/21 09/10/23 History Melatonin 3 mg PO HS@199906/16/21 09/10/23 History buPROPion HCL [Wellbutrin XL] 300 mg PO DAILY@0806/16/21 09/10/23 History hydroCHLOROthiazide [Hydrodiuril] 25 mg PO DAILY@79906/16/21 09/10/23 History OLANZapine [ZyPREXA] 2.5 mg PO HS@199912/20/22 09/10/23 History Aspirin 81 mg PO DAILY@79909/10/23 09/10/23 History Atorvastatin [Lipitor] 80 mg PO HS@199909/10/23 09/10/23 History Biotin 1000mcg 1 tab PO DAILY@169909/10/23 09/10/23 History Clopidogrel [Plavix] 75 mg PO DAILY@0809/10/23 09/10/23 History NIFEdipine XL [Procardia Xl] 90 mg PO DAILY@139909/10/23 09/10/23 History Pantoprazole [Protonix] 40 mg PO DAILY@0709/10/23 09/10/23 History Pioglitazone [Actos] 30 mg PO DAILY@79909/10/23 09/10/23 History Spironolactone [Aldactone] 50 mg PO HS@199909/10/23 09/10/23 History carvediloL [Coreg] 12.5 mg PO BID@0800,169909/10/23 09/10/23 History metFORMIN HCL [Glucophage] 1,000 mg PO BID@0800,1700 09/10/23 09/10/23 History Allergies Allergy/AdvReac Type Severity Reaction Status Date / Time codeine Allergy Itching Verified 09/10/23 20:09 Sulfa (Sulfonamide Allergy Rash/Hives Verified 09/10/23 20:09 Antibiotics) tree nut [Nut] Allergy Anaphylaxis Verified 09/10/23 20:09 Physical Examination Inspection: Negative for any open fractures, significant erythema/ ecchymosis/open wounds. Sensation: Equal, symmetric, bilateral intact throughout the upper extremities on exam. There is some generalized numbness along the L5-S1 dermatome in the right lower extremity. Palpation: Some generalized tenderness palpation over the cervical spine at midline. Moderate tenderness to palpation over the lower thoracic and upper lumbar spine at midline. Mild TTP over upper to mid thoracic spine at midline. NTTP throughout rest of exam Range of motion: Patient does have good range of motion in the bilateral upper extremities on exam. Patient does have limited range of motion in the right hip in flexion secondary to referred pain to the low back and buttocks. Patient does have good range of motion in bilateral knees in flexion's extension and bilateral ankles and dorsi/plantarflexion. Motor: 4/5 in all major motor groups in bilateral upper extremities. 4-/5 in resisted right hip flexion/extension. 4/5 in all other major motor groups in bilateral lower extremities. Neurovascular: Radial pulses intact, 2+ bilaterally. Cap refill under 3 seconds in digits of upper extremities. Special test: Negative Jay bilaterally. Negative clonus bilaterally. Ne gative Pancho bilaterally. Results - Labs Labs: Abnormal Lab Results - Last 24 Hours (Table) 09/10/23 09/10/23 09/11/23 Range/Units 18:49 18:49 07:11 RBC 3.48 L 3.34 L (3.80-5.40) m/uL Hgb 10.7 L 10.0 L (11.4-16.0) gm/dL Hct 32.9 L 32.3 L (34.0-46.0) % MCHC 31.0 L (32.0-37.0) g/dL Carbon Dioxide 21 L (22-30) mmol/L Anion Gap (4.00-12.00) mmol/L BUN 38 H (7-17) mg/dL Creatinine 1.93 H (0.52-1.04) mg/dL Est GFR (CKD-EPI) (>=60) Glucose (70-110) mg/dL POC Glucose (mg/dL) (70-110) mg/dL 09/11/23 09/11/23 09/11/23 Range/Units 07:11 07:50 12:26 RBC (3.80-5.40) m/uL Hgb (11.4-16.0) gm/dL Hct (34.0-46.0) % MCHC (32.0-37.0) g/dL Carbon Dioxide (22-30) mmol/L Anion Gap 13.40 H (4.00-12.00) mmol/L BUN (7-17) mg/dL Creatinine (0.52-1.04) mg/dL Est GFR (CKD-EPI) 43 L (>=60) Glucose 111 H (70-110) mg/dL POC Glucose (mg/dL) 128 H 209 H (70-110) mg/dL H & H 09/10/23 09/11/23 Range/Units 18:49 07:11 Hgb 10.7 L 10.0 L (11.4-16.0) gm/dL Hct 32.9 L 32.3 L (34.0-46.0) % Coagulation 09/10/23 Range/Units 18:49 INR 0.9 (<1.2) Result Diagrams: 09/11/23 07:11 09/11/23 07:11 - Diagnostic results CT Scan - lumbar: report reviewed, image reviewed (CT scan of the lumbar spine does show vertebral compression fracture at T12 along with some osteophytes present anteriorly from T11-L1. Positive for some lumbar spondylosis and degenerative disc disease.) Assessment and Plan Assessment: 1. T12 vertebral compression fracture; degenerative disc disease; lumbar spondylosis; right lower extremity radiculopathy Plan: 1. T12 vertebral compression fracture; degenerative disc disease; lumbar spondylosis; right lower extremity radiculopathy - CT scan of the lumbar spine does show vertebral compression fracture at T12 along with some osteophytes present anteriorly from T11-L1. Positive for some lumbar spondylosis and degenerative disc disease. I did discuss the findings of the exam and imaging with my attending, Dr. Hansen. At this time we are recommending CT of the thoracic spine for further evaluation. We are recommending IV steroids for symptom control as well as Tylenol and Motrin as needed for pain. We are recomm ending PT/OT daily. Weightbearing as tolerated with walker and assistance. Due to the compression fracture at T12 and patient's pinpoint tenderness over this area, kyphoplasty at T12 is possible intervention. We will continue to follow patient during stay in hospital. 2. Appreciate medical management 3. Pain management -gabapentin; Tylenol 4. DVT prophylaxis -aspirin; Plavix 5. GI prophylaxis -Protonix 6. PT/OT -weightbearing as tolerated with walker and assistance 7. Encourage incentive spirometer use 8. Appreciate consult Time with Patient: Less than 30
[2023-09-11] MEDS ORDERED: LOSARTAN 50 MG TAB PO SCH (14:00)
--- NOTE | 2023-09-11 14:07 | P.PN ---
Subjective Progress Note Date: 09/11/23 Hospital course: Patient is a very pleasant 73-year-old female with a past medical history of hypertension, hyperlipidemia, Parkinson's disease, asthma, diabetes mellitus, tremors, anxiety, depression, and bipolar disorder. She presented to the emergency department on 09/10/2023 with a chief complaint of lower back pain radiating into right buttocks with right lower extremity radiculopathy and numbness. Upon arrival to our facility, patient underwent evaluation in the emergency department. Vital signs upon arrival show blood pressure 187/90, heart rate 65, respiratory rate 18, temp 98.3 F, and SpO2 of 96% on room air. Labs were completed and reviewed. CBC showing stable normocytic anemia with hemoglobin of 10.7. Coagulation profile normal findings. BMP showing acute kidney injury with BUN of 38, creatinine 1.93, GFR of 25 with baseline creatinine of 1.1. In addition to acute kidney injury, patient was also found to have significant urinary retention of 1000 cc of urine requiring insertion of Cazares catheter. CT abdomen and pelvis was completed and was negative for acute intra-abdominal process showing dilation of bilateral renal collection systems with distended urinary bladder, cardiomegaly, and coronary artery ar throsclerosis. Physical exam: Vital signs reviewed and stable. General: Nontoxic, no distress and appears stated age. Derm: Skin warm and dry, normal coloration for ethnicity. Head: Atraumatic, normocephalic and symmetric. Eyes: EOMs intact, no lid lag, and anicteric sclera Mouth: no lip lesions, mucus membranes moist Cardiovascular: regular rate and rhythm with normal S1S2, soft systolic murmur, positive posterior tibial pulses bilaterally, and cap refill < 2 seconds. Lungs: Respirations even, regular, and unlabored on room air. Lungs CTA bilaterally, no rhonchi, no rales, no wheezing, and no accessory muscle usage. Abdominal: soft, nontender to palpation, no guarding, no appreciable organomegaly Ext: No gross muscle atrophy, no edema, no contractures. Sensation intact. Patient does report numbness to right lower extremity and increased pain with movement and lower back. Neuro: Speech clear, face symmetrical and CN II-XII grossly intact with no noted focal neuro deficits Psych: Alert and oriented to person, place, time, and situation. Appropriate and pleasant affect. Assessment and Plan of Care: Acute lower back pain with right-sided radiculopathy Right lower extremity numbness Urinary retention -Order placed for CT lumbar spine -Orthospine surgery team consulted for evaluation. -Continue Cazares catheter -Neurochecks every 4 hours and fall precautions in place -PT/OT following. Acute kidney injury -Secondary to urinary retention, resolved after Cazares catheter placement. Diabetes mellitus with hyperglycemia Hold metformin and Actos and place patient on glycemic protocol with NovoLog sliding scale. Parkinson's disease Continue carbidopa levodopa 25/250 mg tablets 3 times daily, Namenda 10 mg nightly, Aricept 10 mg nightly, benztropine 0.5 mg daily. Hypertension Hyperlipidemia -Continue cardiac medication regimen with aspirin 81 mg daily, atorvastatin 80 mg nightly, carvedilol 12.5 mg twice daily, Plavix 75 mg daily, irbesartan 300 mg daily, and Procardia 90 mg daily. Anxiety and depression Bipolar disorder -Continue Xanax 0.5 mg daily, Zyprexa 2.5 mg nightly, Lamictal 150 mg twice daily, and Wellbutrin 300 mg daily. Data and imaging reviewed: Labs completed and reviewed. CBC showing stable normocytic anemia with hemoglobin of 10.0. BMP showing improvement and near resolution of acute kidney injury BUN 23.8, creatinine 1.3, GFR 43. Blood glucose 128. Vital signs reviewed. Blood pressure 178/74, heart rate 69, respiratory rate 18, temp 98.3 F, and SpO2 of 95% on room air. Order placed for CT lumbar spine, will follow-up on results. CODE STATUS: Full code DVT prophylaxis: Heparin Anticipated discharge date: Pending clinical course Anticipated discharge place: Pending clinical course Patient was seen independently by Nurse Pracitioner. This document was prepared using [employer] dictation software. 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 Haja Wild NP rendered care for this patient independently, reviewed the findings and plan as documented in the note above. I did not physically speak with or examine the patient on this date. Objective - Vital Signs Vital signs: Vital Signs Temp 98.3 F 09/10/23 18:28 Pulse 69 09/11/23 06:52 Resp 18 09/11/23 06:52 BP 178/74 09/11/23 06:52 Pulse Ox 95 09/11/23 06:52 FiO2 Intake & Output 09/10/23 09/11/23 09/11/23 18:59 06:59 18:59 Output Total 1000 Balance -1000 Weight 87.543 kg Output: Urine 1000 Uretheral (Cazares) 1000 - Labs CBC & Chem 7: 09/11/23 07:11 09/11/23 07:11 Labs: Abnormal Lab Results - Last 24 Hours (Table) 09/10/23 09/10/23 09/11/23 Range/Units 18:49 18:49 07:50 RBC 3.48 L (3.80-5.40) m/uL Hgb 10.7 L (11.4-16.0) gm/dL Hct 32.9 L (34.0-46.0) % Carbon Dioxide 21 L (22-30) mmol/L BUN 38 H (7-17) mg/dL Creatinine 1.93 H (0.52-1.04) mg/dL POC Glucose (mg/dL) 128 H (70-110) mg/dL
--- NOTE | 2023-09-11 16:56 | CT ---
EXAMINATION TYPE: CT thoracic spine wo con DATE OF EXAM: 09/11/2023 COMPARISON: 2 view chest 01/06/2022 HISTORY: 73-year-old female pain, spinal fx TECHNIQUE: Contiguous axial scanning of the thoracic spine without IV contrast. Coronal and sagittal reconstructions performed. CT DLP: 899.2 mGycm Automated exposure control for dose reduction was used. FINDINGS: Anterior wedge deformity T12 with mild, 15% anterior height loss and superior endplate deformity has a chronic appearance. No paravertebral soft tissue modality or retropulsion into the spinal canal is seen. Finding may have been present back on the 01/06/2022 chest radiograph. There is osteopenia. Moderate degenerative disc disease with vacuum and disc space narrowing mid thor acic spine. Partially visualized ACDF C5-C6. Minimal superior endplate deformity/Schmorl's node T4 also suspected chronic. No convincing acute fracture seen. Moderate facet arthropathy throughout. Alignment is maintained. No evident canal compromise within the thoracic spine. Moderate bilateral neuroforaminal stenosis T1-T2 and moderate on the right at T2-T3. IMPRESSION: 1. MILD ANTERIOR WEDGE DEFORMITY OF T12 HAS A CHRONIC APPEARANCE. NO ACUTE FRACTURE LINE IS SEEN. FIN DING MAY HAVE BEEN PRESENT ON THE CHEST RADIOGRAPH OF 01/06/2022. 2. MINIMAL SUPERIOR ENDPLATE DEFORMITY/SCHMORL'S NODE OF T4 ALSO SUSPECTED CHRONIC. NO CONVINCING ACU TE FRACTURE IS SEEN. 3. SOME DEGENERATIVE DISC DISEASE MIDTHORACIC SPINE AND MODERATE MULTILEVEL FACET ARTHROPATHY.
[2023-09-11 17:12] LABS: Glucose,Whole Blood 166 mg/dL (70-110)
[2023-09-11] MEDS: DEXAMETHASONE SOD PHOSPHATE 4 MG/ML 1 ML VIAL IVP SCH (17:43)
[2023-09-11] MEDS ORDERED: SPIRONOLACTONE 25 MG TAB PO SCH (20:00)
[2023-09-11 20:12] LABS: Glucose,Whole Blood 233 mg/dL (70-110)
[2023-09-11] MEDS: DONEPEZIL 10 MG TAB PO SCH (21:10)
[2023-09-11] MEDS: ATORVASTATIN 80 MG TAB PO SCH (21:10)
[2023-09-11] MEDS: OLANZapine 2.5 MG TAB PO SCH (21:10)
[2023-09-11] MEDS: FERROUS SULFATE 325 MG TAB PO SCH (21:10)
[2023-09-11] MEDS: MEMANTINE 10 MG TAB PO SCH (21:11)
[2023-09-11] MEDS: MELATONIN 3 MG TABLET PO SCH (21:11)
[2023-09-11] MEDS: ARIPiprazole 10 MG TAB PO SCH (21:11)
[2023-09-12 07:31] LABS: Glucose,Whole Blood 186 mg/dL (70-110)
[2023-09-12] MEDS: ALPRAZolam 0.5 MG TAB PO PRN (10:05)
--- NOTE | 2023-09-12 10:12 | P.PN ---
Subjective Progress Note Date: 09/12/23 Principal diagnosis: T12 vertebral compression fracture; degenerative disc disease; lumbar spondylosis; right lower extremity radiculopathy Patient was seen at bedside this morning lying in the semirecumbent position. Patient says she is still having some numbness and tingling in the right buttocks and partially down the right leg. Patient says she has not noticed any significant difference in symptoms since starting steroids. Patient says she would like to discuss potential surgical options with her family before deciding on anything. Patient is agreeable to attempt to use TLSO brace. Patient denies any other orthopedic complaints at this time. Objective - Vital Signs Vital signs: Vital Signs Temp 97.7 F 09/12/23 07:07 Pulse 77 09/12/23 07:07 Resp 16 09/12/23 07:07 BP 159/71 09/12/23 07:07 Pulse Ox 92 L 09/12/23 07:07 FiO2 Intake & Output 09/11/23 09/12/23 09/12/23 18:59 06:59 18:59 Intake Total 400 Output Total 2100 800 800 Balance -1700 -800 -800 Weight 87.543 kg Intake: Oral 400 Output: Urine 2100 800 800 Uretheral (Cazares) 1000 Other: Voiding Method Indwelling Catheter Indwelling Catheter - Exam Inspection: Negative for any open fractures, significant erythema/e cchymosis/open wounds. Sensation: Equal, symmetric, bilateral intact throughout the upper extremities on exam. There is some generalized numbness along the L5-S1 dermatome in the right lower extremity. Palpation: Some generalized tenderness palpation over the cervical spine at midline. Moderate tenderness to palpation over the lower thoracic and upper lumbar spine at midline. Mild TTP over upper to mid thoracic spine at midline. NTTP throughout rest of exam Range of motion: Patient does have good range of motion in the bilateral upper extremities on exam. Patient does have limited range of motion in the right hip in flexion secondary to referred pain to the low back and buttocks. Patient does have good range of motion in bilateral knees in flexion's extension and bilateral ankles and dorsi/plantarflexion. Motor: 4/5 in all major motor groups in bilateral upper extremities. 4-/5 in resisted right hip flexion/extension. 4/5 in all other major motor groups in bilateral lower extremities. Neurovascular: Radial pulses intact, 2+ bilaterally. Cap refill under 3 seconds in digits of upper extremities. Special test: Negative Jay bilaterally. Negative clonus bilaterally. Neg ative Pancho bilaterally. - Labs CBC & Chem 7: 09/11/23 07:11 09/11/23 07:11 Labs: Abnormal Lab Results - Last 24 Hours (Table) 09/11/23 09/11/23 09/11/23 Range/Units 07:11 07:11 12:26 RBC 3.34 L (4.10-5.20) X 10*6/uL Hgb 10.0 L (12.0-15.0) g/dL Hct 32.3 L (37.2-46.3) % MCHC 31.0 L (32.0-37.0) g/dL Anion Gap 13.40 H (4.00-12.00) mmol/L Est GFR (CKD-EPI) 43 L (>=60) Glucose 111 H (70-110) mg/dL POC Glucose (mg/dL) 209 H (70-110) mg/dL 09/11/23 09/11/23 09/12/23 Range/Units 17:11 20:10 07:29 RBC (4.10-5.20) X 10*6/uL Hgb (12.0-15.0) g/dL Hct (37.2-46.3) % MCHC (32.0-37.0) g/dL Anion Gap (4.00-12.00) mmol/L Est GFR (CKD-EPI) (>=60) Glucose (70-110) mg/dL POC Glucose (mg/dL) 166 H 233 H 186 H (70-110) mg/dL Assessment and Plan Assessment: 1. T12 vertebral compression fracture; degenerative disc disease; lumbar spondylosis; right lower extremity radiculopathy Plan: 1. T12 vertebral compression fracture; degenerative disc disease; lumbar spondylosis; right lower extremity radiculopathy - CT scan of the lumbar spine does show vertebral compression fracture at T12 along with some osteophytes present anteriorly from T11-L1. Positive for some lumbar spondylosis and degenerative disc disease. CT scan of the thoracic spine and shows T12 vertebral compression fracture. I did discuss the findings of the exam and imaging with my attending, Dr. Hansen. We are recommending IV steroids for symptom control as well as Tylenol and Motrin as needed for pain. We are recommending PT/OT daily. Weightbearing as tolerated with walker and assistance. I did discuss surgical option with the patient this morning at bedside for T12 kyphoplasty. Patient would like to discuss with family before deciding on any potential intervention. account manager forest service working on TLSO brace order. we will continue to follow patient during stay in hospital. 2. Appreciate medical management 3. Pain management -gabapentin; Tylenol 4. DVT prophylaxis -aspirin; Plavix 5. GI prophylaxis -Protonix 6. PT/OT -weightbearing as tolerated with walker and assistance 7. Encourage incentive spirometer use Time with Patient: Less than 30
[2023-09-12 10:26] LABS: HCT 31.6 % (37.2-46.3); HGB 10.4 g/dL (12.0-15.0); MCH 30.6 pg (27.0-32.0); MCHC 32.9 g/dL (32.0-37.0); MCV 92.9 FL (80.0-97.0); Mean Platelet Volume 9.6 FL (9.5-12.2); NRBC Per 100 WBC 0 X 10*3/uL (0.00-0.01); Platelet Count 302 X 10*3/uL (140-440); RDW 13.2 % (11.5-14.5); WBC 6.56 X 10*3/uL (4.50-10.00)
[2023-09-12 10:42] LABS: Magnesium 1.8 mg/dL (1.5-2.4)
--- NOTE | 2023-09-12 10:54 | P.PN ---
Subjective Progress Note Date: 09/12/23 Hospital course: Patient is a very pleasant 73-year-old female with a past medical history of hypertension, hyperlipidemia, Parkinson's disease, asthma, diabetes mellitus, tremors, anxiety, depression, and bipolar disorder. She presented to the emergency department on 09/10/2023 with a chief complaint of lower back pain radiating into right buttocks with right lower extremity radiculopathy and numbness. Upon arrival to our facility, patient underwent evaluation in the emergency department. Vital signs upon arrival show blood pressure 187/90, heart rate 65, respiratory rate 18, temp 98.3 F, and SpO2 of 96% on room air. Labs were completed and reviewed. CBC showing stable normocytic anemia with hemoglobin of 10.7. Coagulation profile normal findings. BMP showing acute kidney injury with BUN of 38, creatinine 1.93, GFR of 25 with baseline creatinine of 1.1. In addition to acute kidney injury, patient was also found to have significant urinary retention of 1000 cc of urine requiring insertion of Cazares catheter. CT abdomen and pelvis was completed and was negative for acute intra-abdominal process showing dilation of bilateral renal collection systems with distended urinary bladder, cardiomegaly, and coronary artery ar throsclerosis. Physical exam: Patient seen and fully evaluated at bedside this morning. Vital signs reviewed and stable. General: Nontoxic, no distress and appears stated age. Derm: Skin warm and dry, normal coloration for ethnicity. Head: Atraumatic, normocephalic and symmetric. Eyes: EOMs intact, no lid lag, and anicteric sclera Mouth: no lip lesions, mucus membranes moist Cardiovascular: regular rate and rhythm with normal S1S2, soft systolic murmur, positive posterior tibial pulses bilaterally, and cap refill < 2 seconds. Lungs: Respirations even, regular, and unlabored on room air. Lungs CTA bilaterally, no rhonchi, no rales, no wheezing, and no accessory muscle usage. Abdominal: soft, nontender to palpation, no guarding, no appreciable organomegaly Ext: No gross muscle atrophy, no edema, no contractures. Sensation intact. Patient does report numbness to right lower extremity and increased pain with movement and lower back. Neuro: Speech clear, face symmetrical and CN II-XII grossly intact with no noted focal neuro deficits Psych: Alert and oriented to person, place, time, and situation. Appropriate and pleasant affect. Assessment and Plan of Care: Acute lower back pain with right-sided radiculopathy Right lower extremity numbness Urinary retention T12 compression fracture -CT lumbar spine concerning for T12 compression fracture and reporting possible right paracentral disc extrusion with some superior migration of disc material at L3-L4 reported that it may encroach onto the right lateral recess and affect the transversing right L3 or L4 nerve roots with background mild degenerative disc disease and moderate facet arthropathy. -Orthospine surgery team following, discussed plan of care with orthopedic surgery PA. Recommending continuation of IV steroids for symptom control and surgical option of T12 kyphoplasty. -Continue Cazares catheter -Neurochecks every 4 hours and fall precautions in place -PT/OT following. Transaminitis Patient with acute transaminitis with AST of 205, ALT of 97, and alkaline phosphatase of 208. Unclear etiology, order placed for liver ultrasound. Will continue to monitor closely with repeat a.m. labs. Acute kidney injury resolved. -Secondary to urinary retention, resolved after Cazares catheter placement. Diabetes mellitus with hyperglycemia Hold metformin and Actos and continue patient on glycemic protocol with NovoLog sliding scale. Hemoglobin A1c 7.0%. Parkinson's disease Continue carbidopa levodopa 25/250 mg tablets 3 times daily, Namenda 10 mg nightly, Aricept 10 mg nightly, benztropine 0.5 mg daily. Hypertension Hyperlipidemia -Continue cardiac medication regimen with aspirin 81 mg daily, atorvastatin 80 mg nightly, carvedilol 12.5 mg twice daily, Plavix 75 mg daily, irbesartan 300 mg daily, and Procardia 90 mg daily. Anxiety and depression Bipolar disorder -Continue Xanax 0.5 mg daily, Zyprexa 2.5 mg nightly, Lamictal 150 mg twice daily, and Wellbutrin 300 mg daily. Data and imaging reviewed: Labs completed and reviewed. CBC showing stable normocytic anemia with hemoglobin of 10.4. BMP unremarkable with exception of hyperglycemia with blood glucose of 199. Hemoglobin A1c was 7%. Magnesium normal findings at 1.8. Liver profile showing transaminitis with AST of 205, ALT of 97, and alkaline phosphatase of 208. Patient denies abdominal pain or discomfort. Unclear reasoning for elevation of liver enzymes. Will order for ultrasound of liver and follow-up with repeat morning labs. Documented urinary output over the past 24 hours is 2900 cc. Vital signs reviewed. Blood pressure 159/71, heart rate 77, respiratory rate 16, temp 97.7 F, and SpO2 of 92% on room air. CT lumbar spine completed and radiology report reviewed stating concerning for T12 compression fracture and reporting possible right paracentral disc extrusion with some superior migration of disc material at L3-L4 reported that it may encroach onto the right lateral recess and affect the transversing right L3 or L4 nerve roots with background mild degenerative disc disease and moderate facet arthropathy. CODE STATUS: Full code DVT prophylaxis: Heparin Anticipated discharge date: Pending clinical course Anticipated discharge place: Pending clinical course Patient was seen independently by Nurse Pracitioner. This document was prepared using [employer] dictation software. Please allow for errors in oil tank car cleaner, while rare they do occur. I reviewed the documentation as provided by the MATEO above, who is the original author of this note. I agree with the documented assessment and plan, with the following changes: none Objective - Vital Signs Vital signs: Vital Signs Temp 97.7 F 09/12/23 07:07 Pulse 77 09/12/23 07:07 Resp 16 09/12/23 07:07 BP 159/71 09/12/23 07:07 Pulse Ox 92 L 09/12/23 07:07 FiO2 Intake & Output 09/11/23 09/12/23 09/12/23 18:59 06:59 18:59 Intake Total 400 Output Total 2100 800 800 Balance -1700 -800 -800 Weight 87.543 kg Intake: Oral 400 Output: Urine 2100 800 800 Uretheral (Cazares) 1000 Other: Voiding Method Indwelling Catheter Indwelling Catheter - Labs CBC & Chem 7: 09/13/23 07:10 09/13/23 07:10 Labs: Abnormal Lab Results - Last 24 Hours (Table) 09/11/23 09/11/23 09/11/23 Range/Units 07:11 07:11 12:26 RBC 3.34 L (4.10-5.20) X 10*6/uL Hgb 10.0 L (12.0-15.0) g/dL Hct 32.3 L (37.2-46.3) % MCHC 31.0 L (32.0-37.0) g/dL Anion Gap 13.40 H (4.00-12.00) mmol/L Est GFR (CKD-EPI) 43 L (>=60) Glucose 111 H (70-110) mg/dL POC Glucose (mg/dL) 209 H (70-110) mg/dL 09/11/23 09/11/23 09/12/23 Range/Units 17:11 20:10 07:29 RBC (4.10-5.20) X 10*6/uL Hgb (12.0-15.0) g/dL Hct (37.2-46.3) % MCHC (32.0-37.0) g/dL Anion Gap (4.00-12.00) mmol/L Est GFR (CKD-EPI) (>=60) Glucose (70-110) mg/dL POC Glucose (mg/dL) 166 H 233 H 186 H (70-110) mg/dL
[2023-09-12 10:57] LABS: ALT 97 U/L (8-44); AST 205 U/L (13-35); Albumin 4.1 g/dL (3.8-4.9); Albumin/Globulin Ratio 1.58 Ratio (1.60-3.17); Alkaline Phosphatase 208 U/L (41-126); BUN/Creat Ratio 19.55 Ratio (12.00-20.00); Blood Urea Nitrogen 21.5 mg/dL (9.0-27.0); Calcium 9.1 mg/dL (8.7-10.3); Carbon Dioxide 22.8 mmol/L (21.6-31.8); Chloride 102 mmol/L (96-109); Globulin 2.6 g/dL (1.6-3.3); Glucose 199 mg/dL (70-110); Potassium 4.6 mmol/L (3.5-5.5); Sodium 135 mmol/L (135-145); Total Bilirubin 0.5 mg/dL (0.3-1.2); Total Protein 6.7 g/dL (6.2-8.2)
[2023-09-12 11:44] LABS: Glucose,Whole Blood 268 mg/dL (70-110)
[2023-09-12 17:10] LABS: Glucose,Whole Blood 226 mg/dL (70-110)
--- NOTE | 2023-09-12 17:27 | P.GSCN ---
History of Present Illness Consult date: 09/12/23 Reason for Consult: Urinary retention Requesting physician: Titi Baxter History of present illness: The patient is a 73-year-old white female admitted September 10, 2023 with acute onset of sharp right buttock pain. She has been found to have a T12 compression fracture, for which a kyphoplasty will be considered. Her evaluation included a CT scan of the abdomen and pelvis, which revealed mild dilation of the renal collecting systems bilaterally and bladder distention up to the level of the umbilicus. A Cazares catheter was inserted and remains in place. The patient has an unremarkable urologic history. She denies any prior history of urolithiasis. She has been treated for UTIs in the remote past. She reports nocturia x 3, and voids approximately 3 times throughout the day. She denies urinary incontinence, dysuria, and hematuria. She feels she empties her bladder completely. She did feel a strong urge to void at the time of the CT scan. Review of Systems - Cardiovascular Reports high blood pressure - Genitourinary Genitourinary: Reports as per HPI - Musculoskeletal Reports low back pain Past Medical History Past Medical History: Asthma, Dementia, Diabetes Mellitus, Hyperlipidemia, Hypertension, Pneumonia, Syncope Additional Past Medical History / Comment(s): Chronic vertigo if pt lies on her sides, NIDDM type II, neuropathy bilateral hands and occasionally in feet, "preparkinsonism", tremors, cardiac murmur, pancreatitis, R shoulder discomfort since injury 2 weeks ago, anemia, rare UTI, constipation. History of Any Multi-Drug Resistant Organisms: None Reported Past Surgical History: Appendectomy, Cholecystectomy, Hysterectomy, Orthopedic Surgery Additional Past Surgical History / Comment(s): Eploratory with appendectomy, cervical fusion. Past Anesthesia/Blood Transfusion Reactions: No Reported Reaction Past Psychological History: Anxiety, Bipolar, Depression Smoking Status: Never smoker Past Alcohol Use History: Rare Past Drug Use History: None Reported - Past Family History Mother History Unknown: Yes Family Medical History: Coronary Artery Disease (CAD), Eye Disorder Additional Family Medical History / Comment(s): Mother of heart problems. She had macular degeneration Father Family Medical History: Diabetes Mellitus Additional Family Medical History / Comment(s): Father of diabetic complications. Medications and Allergies Home Medications Medication Instructions Recorded Confirmed Type RX: ALPRAZolam [Xanax] 0.5 mg PO DAILY PRN 11/23/17 09/10/23 History RX: Ascorbic Acid [Vitamin C] 500 mg PO DAILY@0800 11/23/17 09/10/23 History RX: Cyanocobalamin (Vitamin B-12) 1,000 mcg PO DAILY@0800 11/23/17 09/10/23 History [Vitamin B-12] RX: Donepezil [Aricept] 10 mg PO HS@199911/23/17 09/10/23 History RX: Gabapentin [Neurontin] 300 mg PO BID@0800,199911/23/17 09/10/23 History RX: Memantine [Namenda] 10 mg PO HS@199911/23/17 09/10/23 History RX: Multivit/Folic Acid/Vit K1 1 tab PO DAILY@0800 11/23/17 09/10/23 History [One-A-Day Women's 50 Plus Tab] RX: lamoTRIgine 150 mg PO BID@0800,199911/23/17 09/10/23 History RX: ARIPiprazole [Abilify] 10 mg PO HS@199906/16/21 09/10/23 History RX: Albuterol Sulfate [Ventolin 1 - 2 puff INHALATION RT-Q4H PRN 06/16/21 09/10/23 History HFA] RX: Benztropine Mesylate 0.5 mg PO DAILY@0800 06/16/21 09/10/23 History RX: Carbidopa-Levodopa 25-250 mg 1 tab PO TID@0800,1400,199906/16/21 09/10/23 History [Sinemet 25-250 mg] RX: Cholecalciferol [Vitamin D3 50 mcg PO HS@199906/16/21 09/10/23 History (25 Mcg = 1000 Iu)] RX: Docusate [Colace] 100 mg PO BID@0800,199906/16/21 09/10/23 History RX: Ferrous Sulfate [Iron (65 MG 325 mg PO HS@199906/16/21 09/10/23 History Elemental)] RX: Irbesartan [Avapro] 300 mg PO DAILY@1400 06/16/21 09/10/23 History RX: Melatonin 3 mg PO HS@199906/16/21 09/10/23 History RX: buPROPion HCL [Wellbutrin XL] 300 mg PO DAILY@0806/16/21 09/10/23 History RX: hydroCHLOROthiazide 25 mg PO DAILY@79906/16/21 09/10/23 History [Hydrodiuril] RX: OLANZapine [ZyPREXA] 2.5 mg PO HS@199912/20/22 09/10/23 History Atorvastatin [Lipitor] 80 mg PO HS@199909/10/23 09/10/23 History Biotin 1000mcg 1 tab PO DAILY@169909/10/23 09/10/23 History Clopidogrel [Plavix] 75 mg PO DAILY@0809/10/23 09/10/23 History NIFEdipine XL [Procardia Xl] 90 mg PO DAILY@1400 09/10/23 09/10/23 History Pantoprazole [Protonix] 40 mg PO DAILY@0709/10/23 09/10/23 History Pioglitazone [Actos] 30 mg PO DAILY@0809/10/23 09/10/23 History RX: Aspirin 81 mg PO DAILY@0809/10/23 09/10/23 History Spironolactone [Aldactone] 50 mg PO HS@199909/10/23 09/10/23 History carvediloL [Coreg] 12.5 mg PO BID@0800,169909/10/23 09/10/23 History metFORMIN HCL [Glucophage] 1,000 mg PO BID@0800,1700 09/10/23 09/10/23 History Allergies Allergy/AdvReac Type Severity Reaction Status Date / Time codeine Allergy Itching Verified 09/10/23 20:09 Sulfa (Sulfonamide Allergy Rash/Hives Verified 09/10/23 20:09 Antibiotics) tree nut [Nut] Allergy Anaphylaxis Verified 09/10/23 20:09 Surgical - Exam Vital Signs Temp Pulse Resp BP Pulse Ox 98.3 F 65 18 187/90 96 09/10/23 18:28 09/10/23 18:28 09/10/23 18:28 09/10/23 18:28 09/10/23 18:28 - General well developed, well nourished, no distress - Respiratory normal respiratory effort - Abdomen Abdomen: soft, non tender, no guarding, no rigid, no rebound - Psychiatric oriented to time, oriented to person, oriented to place, speech is normal, memory intact Results - Labs 09/12/23 06:11 09/12/23 06:11 Abnormal Lab Results - Last 24 Hours (Table) 09/11/23 09/11/23 09/11/23 Range/Units 07:11 07:11 07:50 RBC 3.34 L (4.10-5.20) X 10*6/uL Hgb 10.0 L (12.0-15.0) g/dL Hct 32.3 L (37.2-46.3) % MCHC 31.0 L (32.0-37.0) g/dL Anion Gap 13.40 H (4.00-12.00) mmol/L Est GFR (CKD-EPI) 43 L (>=60) Glucose 111 H (70-110) mg/dL POC Glucose (mg/dL) 128 H (70-110) mg/dL 09/11/23 09/11/23 09/11/23 Range/Units 12:26 17:11 20:10 RBC (4.10-5.20) X 10*6/uL Hgb (12.0-15.0) g/dL Hct (37.2-46.3) % MCHC (32.0-37.0) g/dL Anion Gap (4.00-12.00) mmol/L Est GFR (CKD-EPI) (>=60) Glucose (70-110) mg/dL POC Glucose (mg/dL) 209 H 166 H 233 H (70-110) mg/dL Diabetes panel 09/11/23 Range/Units 07:11 Sodium 143 (135-145) mmol/L Potassium 4.9 (3.5-5.5) mmol/L Chloride 107 (96-109) mmol/L Carbon Dioxide 22.6 (21.6-31.8) mmol/L BUN 23.8 (9.0-27.0) mg/dL Creatinine 1.3 (0.6-1.5) mg/dL Glucose 111 H (70-110) mg/dL Calcium 9.1 (8.7-10.3) mg/dL AST 19 (13-35) U/L ALT 18 (8-44) U/L Alkaline Phosphatase 110 (41-126) U/L Total Protein 6.5 (6.2-8.2) g/dL Albumin 4.1 (3.8-4.9) g/dL Calcium panel 09/11/23 Range/Units 07:11 Calcium 9.1 (8.7-10.3) mg/dL Albumin 4.1 (3.8-4.9) g/dL Pituitary panel 09/11/23 Range/Units 07:11 Sodium 143 (135-145) mmol/L Potassium 4.9 (3.5-5.5) mmol/L Chloride 107 (96-109) mmol/L Carbon Dioxide 22.6 (21.6-31.8) mmol/L BUN 23.8 (9.0-27.0) mg/dL Creatinine 1.3 (0.6-1.5) mg/dL Glucose 111 H (70-110) mg/dL Calcium 9.1 (8.7-10.3) mg/dL Adrenal panel 09/11/23 Range/Units 07:11 Sodium 143 (135-145) mmol/L Potassium 4.9 (3.5-5.5) mmol/L Chloride 107 (96-109) mmol/L Carbon Dioxide 22.6 (21.6-31.8) mmol/L BUN 23.8 (9.0-27.0) mg/dL Creatinine 1.3 (0.6-1.5) mg/dL Glucose 111 H (70-110) mg/dL Calcium 9.1 (8.7-10.3) mg/dL Total Bilirubin 0.4 (0.3-1.2) mg/dL AST 19 (13-35) U/L ALT 18 (8-44) U/L Alkaline Phosphatase 110 (41-126) U/L Total Protein 6.5 (6.2-8.2) g/dL Albumin 4.1 (3.8-4.9) g/dL - Imaging CT scan - abdomen: report reviewed, image reviewed Assessment and Plan (1) Unspecified hydronephrosis Current Visit: Yes Status: Acute Code(s): N13.30 - UNSPECIFIED HYDRONEPHROSIS SNOMED Code(s): 51071187 (2) Urinary retention Current Visit: Yes Status: Acute Code(s): R33.9 - RETENTION OF URINE, UNSPECIFIED SNOMED Code(s): 483803943 Plan: The patient's bladder was distended at the time of the CT scan, but she has no pre-existing symptoms consistent with urinary retention. I would suggest that the Cazares catheter be removed when the patient is ambulatory and the catheter is no longer medically needed. Postvoid residuals should be checked to assess bladder emptying. Please reconsult if the patient is found to empty her bladder incompletely, or if I can be of any further assistance. Time with Patient: Greater than 30
--- NOTE | 2023-09-12 17:29 | US ---
EXAMINATION TYPE: US liver DATE OF EXAM: 09/12/2023 Exam done portable COMPARISON: CT 2023 CLINICAL INDICATION: Female, 73 years old with history of transaminitis, unclear etiology; TECHNIQUE: Multiple sonographic images of the right upper quadrant are obtained. FINDINGS: EXAM MEASUREMENTS: Liver Length: 14.9 cm CBD: 0.5 cm Right Kidney: 10.3 x 4.7 x 4.9 cm Pancreas: visualized portions wnl, limited by overlying midline bowel gas Liver: course echotexture Gallbladder: surgically absent Evidence for sonographic Trejo's sign: no CBD: visualized portions wnl, limited by overlying bowel gas Right Kidney: 3.2cm cyst lateral mid pole IMPRESSION: 1. No evidence for acute process. 2. Coarsened echotexture compatible with hepatocellular disease.. 3. Peripelvic cysts in the right kidney.
[2023-09-12 20:29] LABS: Glucose,Whole Blood 316 mg/dL (70-110)
[2023-09-13 07:39] LABS: Glucose,Whole Blood 215 mg/dL (70-110)
[2023-09-13 10:30] LABS: HCT 30.8 % (37.2-46.3); HGB 10.1 g/dL (12.0-15.0); MCH 30.5 pg (27.0-32.0); MCHC 32.8 g/dL (32.0-37.0); MCV 93.1 FL (80.0-97.0); NRBC Per 100 WBC 0 X 10*3/uL (0.00-0.01); Platelet Count 320 X 10*3/uL (140-440); RBC 3.31 X 10*6/uL (4.10-5.20); RDW 13.4 % (11.5-14.5); WBC 11.71 X 10*3/uL (4.50-10.00)
[2023-09-13 10:42] LABS: ALT 82 U/L (8-44); AST 76 U/L (13-35); Albumin 3.9 g/dL (3.8-4.9); Alkaline Phosphatase 170 U/L (41-126); BUN/Creat Ratio 27.67 Ratio (12.00-20.00); Blood Urea Nitrogen 33.2 mg/dL (9.0-27.0); Calcium 9.1 mg/dL (8.7-10.3); Carbon Dioxide 22.6 mmol/L (21.6-31.8); Chloride 103 mmol/L (96-109); Globulin 2.6 g/dL (1.6-3.3); Glucose 234 mg/dL (70-110); Potassium 5.7 mmol/L (3.5-5.5); Sodium 137 mmol/L (135-145); Total Bilirubin 0.2 mg/dL (0.3-1.2); Total Protein 6.5 g/dL (6.2-8.2)
--- NOTE | 2023-09-13 11:07 | P.PN ---
Subjective Progress Note Date: 09/13/23 Principal diagnosis: T12 vertebral compression fracture; degenerative disc disease; lumbar spondylosis; right lower extremity radiculopathy Patient was seen at bedside this morning sitting up in chair with TLSO brace on. After discussing conservative versus surgical treatment options with family yesterday, at this time patient does want to move forward with T12 kyphoplasty. Patient says she is still having some numbness and tingling in the right buttocks and partially down the right leg. Patient says she did get up with therapy yesterday and walked around the room a little bit with TLSO brace on. Patient does feel that the TLSO brace has been helping give her some stability. Patient denies any other orthopedic complaints at this time. Objective - Vital Signs Vital signs: Vital Signs Temp 97.8 F 09/13/23 07:06 Pulse 64 09/13/23 07:06 Resp 17 09/13/23 07:06 BP 150/74 09/13/23 07:06 Pulse Ox 92 L 09/13/23 07:06 FiO2 Intake & Output 09/12/23 09/13/23 09/13/23 18:59 06:59 18:59 Intake Total 400 Output Total 1500 450 Balance -1100 -450 Intake: Oral 400 Output: Urine 1500 450 Other: Voiding Method Indwelling Catheter Indwelling Catheter - Exam Inspection: Negative for any open fractures, significant erythema/ecchymosis/open wounds. Sensation: Equal, symmetric, bilateral intact throughout the upper extremities on exam. There is some generalized numbness along the L5-S1 dermatome in the right lower extremity. Palpation: Some generalized tenderness palpation over the cervical spine at midline. Moderate tenderness to palpation over the lower thoracic and upper lumbar spine at midline. Mild TTP over upper to mid thoracic spine at midline. NTTP throughout rest of exam Range of motion: Patient does have good range of motion in the bilateral upper extremities on exam. Patient does have limited range of motion in the right hip in flexion secondary to referred pain to the low back and buttocks. Patient does have good range of motion in bilateral knees in flexion's extension and bilateral ankles and dorsi/plantarflexion. Motor: 4/5 in all major motor groups in bilateral upper extremities. 4-/5 in resisted right hip flexion/extension. 4/5 in all other major motor groups in bilateral lower extremities. Neurovascular: Radial pulses intact, 2+ bilaterally. Cap refill under 3 seconds in digits of upper extremities. Special test: Negative Jay bilaterally. Negative clonus bilaterally. Negative Pancho bilaterally. - Labs CBC & Chem 7: 09/13/23 07:10 09/13/23 07:10 Labs: Abnormal Lab Results - Last 24 Hours (Table) 09/12/23 09/12/23 09/12/23 Range/Units 06:11 06:11 11:37 Est GFR (CKD-EPI) 53 L (>=60) Glucose 199 H (70-110) mg/dL POC Glucose (mg/dL) 268 H (70-110) mg/dL Hemoglobin A1c 7.0 H (<=6.0) % AST 205 H (13-35) U/L ALT 97 H (8-44) U/L Alkaline Phosphatase 208 H (41-126) U/L Albumin/Globulin Ratio 1.58 L (1.60-3.17) Ratio 09/12/23 09/12/23 09/13/23 Range/Units 17:09 20:26 07:37 Est GFR (CKD-EPI) (>=60) Glucose (70-110) mg/dL POC Glucose (mg/dL) 226 H 316 H 215 H (70-110) mg/dL Hemoglobin A1c (<=6.0) % AST (13-35) U/L ALT (8-44) U/L Alkaline Phosphatase (41-126) U/L Albumin/Globulin Ratio (1.60-3.17) Ratio Assessment and Plan Assessment: 1. T12 vertebral compression fracture; degenerative disc disease; lumbar spondylosis; right lower extremity radiculopathy Plan: 1. T12 vertebral compression fracture; degenerative disc disease; lumbar spondylosis; right lower extremity radiculopathy - CT scan of the lumbar spine does show vertebral compression fracture at T12 along with some osteophytes present anteriorly from T11-L1. Positive for some lumbar spondylosis and degenerative disc disease. CT scan of the thoracic spine and shows T12 vertebral compression fracture. I did discuss the findings of the exam and imaging with my attending, Dr. Hansen. We are recommending IV steroids for symptom control as well as Tylenol and Motrin as needed for pain. We are recommending PT/OT daily. Weightbearing as tolerated with walker and assistance. Patient would like to move forward with surgical intervention in the form of T12 kyphoplasty. Consent was obtained. Surgery scheduled for tmrw, 09/14/2023. N.p.o. at midnight tonight. we will continue to follow patient during stay in hospital. 2. Appreciate medical management 3. Pain management -gabapentin; Tylenol 4. DVT prophylaxis -aspirin; Plavix 5. GI prophylaxis -Protonix 6. PT/OT -weightbearing as tolerated with walker and assistance 7. Encourage incentive spirometer use Time with Patient: Less than 30
[2023-09-13 12:16] LABS: Glucose,Whole Blood 360 mg/dL (70-110)
[2023-09-13] MEDS ORDERED: DEXTROSE 50% SYRINGE 50 ML IVP PRN ×2 (12:46)
--- NOTE | 2023-09-13 12:51 | P.PN ---
Subjective Progress Note Date: 09/13/23 Hospital course Patient is a very pleasant 73-year-old female with a past medical history of hypertension, hyperlipidemia, Parkinson's disease, asthma, diabetes mellitus, tremors, anxiety, depression, and bipolar disorder. She presented to the emergency department on 09/10/2023 with a chief complaint of lower back pain radiating into right buttocks with right lower extremity radiculopathy and numbness. Upon arrival to our facility, patient underwent evaluation in the emergency department. Vital signs upon arrival show blood pressure 187/90, heart rate 65, respiratory rate 18, temp 98.3 F, and SpO2 of 96% on room air. Labs were completed and reviewed. CBC showing stable normocytic anemia with hemoglobin of 10.7. Coagulation profile normal findings. BMP showing acute kidney injury with BUN of 38, creatinine 1.93, GFR of 25 with baseline creatinine of 1.1. In addition to acute kidney injury, patient was also found to have significant urinary retention of 1000 cc of urine requiring insertion of Cazares catheter. CT abdomen and pelvis was completed and was negative for acute intra-abdominal process showing dilation of bilateral renal collection systems with distended urinary bladder, cardiomegaly, and coronary artery arthrosclerosis. Subjective Patient seen this morning. She is denying any acute complaints. Actually her main issue is that her housing manager is not informing the residents at her assisted living facility about what is going on with her due to HIPA violation. She states that she denies to call every resident and notified them about how she is doing. Patient states that she has irregular bowel movements. She states that she will notify nurse if she needs any additional stool softeners or laxatives. Patient states that she did speak with the catering administrative assistant from orthopedic surgery and she is ready for kyphoplasty. She states that she spoke with the sister who had good experience with Dr. Paiz. 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 twice daily and MiraLAX as needed Patient also started on steroids dexamethasone 4 mg every 6 hours Patient also has a TLC of brace at bedside Urinary retention I reviewed note from urology who is recommending to remove Cazares catheter and do voiding trial once patient is more ambulatory Will continue Cazares catheter for now Acute kidney injury secondary to urinary retention resolved Mild hyperkalemia Continue to monitor for now we will trend BMP and magnesium Mild leukocytosis Likely due to steroid Trend CBC and monitor for signs or symptoms of infection Diabetes mellitus Blood glucose is uncontrolled admitted to high-dose steroids Patient only on sliding scale insulin Will add an additional 9 units with each meal Elevated liver enzymes This morning liver enzymes are trending down Liver ultrasound showing echotexture of the liver I suspect is due to fatty liver Patient is asymptomatic so no further workup and follow-up with PCP Hypertension hyperlipidemia Continue with aspirin atorvastatin Coreg Plavix DEEP inhibitor and Procardia Parkinson's disease Continue with carbidopa levodopa, Namenda and Aricept DVT prophylaxis: Subcu heparin Anticipated discharge: Depending on clinical course Anticipated place at discharge: Patient will need to be evaluated by PT OT after kyphoplasty Objective - Vital Signs Vital signs: Vital Signs Temp 97.8 F 09/13/23 07:06 Pulse 64 09/13/23 07:06 Resp 17 09/13/23 07:06 BP 150/74 09/13/23 07:06 Pulse Ox 92 L 09/13/23 07:06 FiO2 Intake & Output 09/12/23 09/13/23 09/13/23 18:59 06:59 18:59 Intake Total 400 Output Total 1500 450 Balance -1100 -450 Intake: Oral 400 Output: Urine 1500 450 Other: Voiding Method Indwelling Catheter Indwelling Catheter - Labs CBC & Chem 7: 09/13/23 07:10 09/13/23 07:10 Labs: Abnormal Lab Results - Last 24 Hours (Table) 09/12/23 09/12/23 09/13/23 Range/Units 17:09 20:26 07:10 WBC 11.71 H (4.50-10.00) X 10*3/uL RBC 3.31 L (4.10-5.20) X 10*6/uL Hgb 10.1 L (12.0-15.0) g/dL Hct 30.8 L (37.2-46.3) % Potassium (3.5-5.5) mmol/L BUN (9.0-27.0) mg/dL Est GFR (CKD-EPI) (>=60) BUN/Creatinine Ratio (12.00-20.00) Ratio Glucose (70-110) mg/dL POC Glucose (mg/dL) 226 H 316 H (70-110) mg/dL Total Bilirubin (0.3-1.2) mg/dL AST (13-35) U/L ALT (8-44) U/L Alkaline Phosphatase (41-126) U/L Albumin/Globulin Ratio (1.60-3.17) Ratio 09/13/23 09/13/23 09/13/23 Range/Units 07:10 07:37 12:15 WBC (4.50-10.00) X 10*3/uL RBC (4.10-5.20) X 10*6/uL Hgb (12.0-15.0) g/dL Hct (37.2-46.3) % Potassium 5.7 H (3.5-5.5) mmol/L BUN 33.2 H (9.0-27.0) mg/dL Est GFR (CKD-EPI) 48 L (>=60) BUN/Creatinine Ratio 27.67 H (12.00-20.00) Ratio Glucose 234 H (70-110) mg/dL POC Glucose (mg/dL) 215 H 360 H (70-110) mg/dL Total Bilirubin 0.2 L (0.3-1.2) mg/dL AST 76 H (13-35) U/L ALT 82 H (8-44) U/L Alkaline Phosphatase 170 H (41-126) U/L Albumin/Globulin Ratio 1.50 L (1.60-3.17) Ratio
[2023-09-13] MEDS: polyethylene glycoL 3350 17 GM POWD.PACK PO STA (13:17)
[2023-09-13] MEDS: INSULIN ASPART (NovoLOG) 100 UNIT/ML VIAL SQ SCH (13:18)
[2023-09-13 17:15] LABS: Glucose,Whole Blood 267 mg/dL (70-110)
[2023-09-13] MEDS ORDERED: INSULIN ASPART (NovoLOG) 100 UNIT/ML VIAL SQ SCH (17:30)
[2023-09-13 20:14] LABS: Glucose,Whole Blood 252 mg/dL (70-110)
[2023-09-13] MEDS: SENNOSIDES 8.6 MG TAB PO SCH (20:34)
--- NOTE | 2023-09-14 06:46 | P.PN ---
Progress Note - Text Progress Note Date: 09/14/23 Spine Surgery Clinical and Risk Review Abiola Coombs is a 73-year-old femalepresenting for evaluation of mid back pain. It was my pleasure to have seen and examined Abiola Coobms. In our visit today we have had a chance to go over subjective complaints, physical examination findings and treatments including the natural course history without intervention and various interventional options. The patients imaging demonstrates T12 vertebral compression fracture with anterior wedging with 40% compression. This is present on previous films but has increased since these previous films. Previous films show 20% compression. On physical exam, Abiola Coombs demonstrates point tenderness over the T12-L1 region and supraspinous and spinous processes. Pain with ambulation and movement. Increased pain since inciting events.. I have explained to the patient that as their condition progresses it will cause further neurological deficits and eventual paralysis. Based on the patients imaging, physical exam, and the rapid progression and disabling nature of their symptoms, at this time I recommend surgery in the form or a: T12 kyphoplasty with biopsy. I discussed the risk and benefits of this procedure at length with Abiola Coombs. The patient and family agreed to considered pursuing the procedure abovementioned. Prior to surgery, she should follow up with her PCP (Cardio, ID, IM etc) for clearance. Questions were invited and answered, and the patient wishes to proceed as outlined below. Currently, I am recommendin. T12 kyphoplasty with biopsy 2. Follow up with PCP for surgical clearance 3. Review of surgical risks and benefits as well as an educational packet on the proposed surgical procedure. Risks: All surgical procedures come with inherent risks, including those related to positioning, anesthesia, intraoperative findings, and postoperative complications. It is important to understand that surgery does not come with any guarantee of a successful outcome as complications and adverse events are always possible. The patient was given a handout in office today discussing the surgical procedure and risks associated with the intervention, both of which were discussed with the patient. These risks include but are not limited to the following: * Experiencing same, different or even worse symptoms in back, neck, arms, or legs compared to before surgery. * Requiring further surgery or other forms of treatment presently or at some time in the future at same or other levels of the intended spine surgery. * On an extreme but fortunately relatively rare basis severe complication such as blindness, stroke, heart attack, temporary and/or permanent nerve injury, paralysis, coma, or may occur, sometimes without known explanation. * Surgical complications may include but are not limited to risk of infection, fluid accumulation in the surgical dissection site, including a seroma or hematoma, that requires additional surgery, wound drainage, bleeding, new numbness or weakness, vision changes/loss, spinal fluid leakage, non-healing and/or infected incision, headaches, difficulty or inability to swallow, hoarseness, hemopneumothorax, pneumothorax, impotence, retrograde ejaculation, vaginal dryness; injury to nerves, spinal cord, blood vessels, lymphatics or other vital organs (i.e., bowel injury, injury to the great vessels); heterotopic bone formation; complications related to the hardware such as screws, rods, cages including misplaced hardware, device failure, instrumentation at the wrong spine level, hardware fracture/breakage, or hardware loosening; vertebral failure of the spinal column above or below the newly placed hardware; retained surgical instrumentations or devices and the need for further surgery. * Medical risks of the planned spine surgery include but are not limited to generalized Infections to the whole body or local areas outside of the surgical site (sepsis), heart attack, bleeding, anaphylaxis, meningitis, seizure, epilepsy, hearing loss, burn davis, laceration of the head or other areas of the body, bruising, hypersensitivity of the skin, bladder over dist ension; allergic reaction; shoulder injury related to positioning; fat, blood and air clots to other areas of the body like heart, lungs, brain; failure of internal organs such as lungs, kidneys, liver and excessive bleeding. If blood transfusions are necessary, note that transfusions may cause intolerance reactions such as anaphylaxis or other complex reactions. * Despite best efforts, the results of spine surgery might not heal in terms of bone, soft tissues such as skin, fascia, ligaments, and joints. Additionally, in order to achieve best possible results, spine surgery may be carried out beyond the initially planned levels and involve decompression, fusion including insertion of hardware at levels other than the original intended area of surgical interest change some portions of the procedure in order to ensure the best possible outcomes. * With spine surgery and spinal fusion, there are different off label uses of instrumentation (devices, implants and hardware) as well as biological substances (bone morphogenic proteins, demineralized bone matrix) as well as using extra bone from allograft sources (i.e. cadaver bone) or autograft (iliac crest bone, ribs, or the spine itself). The patient has been given information about these practices and their inherent risks and benefits. The patient has had a chance to review all the listed information, has been given print outs detailing this information, and has had all his/her questions answered to their satisfaction. It was my pleasure to have seen and examined Abiola Coombs. In our visit today we have had a chance to go over my understanding of our patient's current condition, the natural course history without intervention and various interventional options. Questions were invited and answered, and the patient wishes to proceed as outlined above. I have seen and examined the patient for 25 minutes and we have spent more than 50% of the time in repeat and detailed counseling about the patient's condition, its natural course history with out and as much as can be predicted with surgery and re-review of various surgical treatment options. In conclusion, Abiola Coombs and family requested we proceed with the above suggested surgery and are willing to accept risks and limitations of the suggested surgery as nature of the disease process and our best attempts at treatment for the condition. Thank you again for allowing us to be part of your patient's care. Please don't hesitate to contact me if you have any further questions. Signed and authenticated by: Abdiaziz Raygoza [facility] [address] [place], [place] [address], [address] [address]
[2023-09-14] MEDS: LACTATED RINGERS 1,000 ML BAG IV STA (07:17)
[2023-09-14] MEDS: IV FLUID CONTINUATION 1,000 ML IV ONE (07:17)
[2023-09-14 07:21] LABS: Glucose,Whole Blood 243 mg/dL (70-110)
[2023-09-14] MEDS: ONDANSETRON 4 MG/2 ML VIAL IVP STA (07:24)
[2023-09-14] MEDS ORDERED: TRANEXAMIC 1,000 MG/100ML-NACL PREMIX BAG ONE (07:25)
[2023-09-14] MEDS ORDERED: PROPOFOL 10 MG/ML 20 ML VIAL IV ONE (07:25)
[2023-09-14] MEDS ORDERED: fentaNYL (PF) 50 MCG/ML 2 ML AMP ONE (07:25)
[2023-09-14] MEDS ORDERED: LIDOCAINE 1% INJ 10MG/ML (20 ML MDV) ONE (07:25)
[2023-09-14] MEDS ORDERED: GLYCOPYRROLATE 0.2 MG/ML 2 ML VIAL ONE (07:25)
[2023-09-14] MEDS ORDERED: ceFAZolin 1 GM/50 ML BAG (PMX) ONE (07:25)
[2023-09-14] MEDS ORDERED: SUCCINYLCHOLINE CHLORIDE 200 MG/10 ML VIAL IV ONE (07:25)
[2023-09-14] MEDS ORDERED: MIDAZOLAM 2 MG/2 ML VIAL ONE (07:25)
[2023-09-14] MEDS: IOPAMIDOL M200 10 ML VIAL MISCELLANE ONE (07:55)
[2023-09-14] MEDS: LIDOCAINE 2%-EPI 1:100,000 20 ML VIAL SQ ONE ×2 (07:55)
[2023-09-14] MEDS: BUPIVACAINE (PF) 0.5% 30 ML VIAL SQ ONE ×2 (07:55)
[2023-09-14] MEDS: SODIUM CHLORIDE 0.9% 100 ML with ceFAZolin 2,000 MG IV ONE (07:55)
--- NOTE | 2023-09-14 08:48 | FL ---
Fluoroscopy History: KYPHOPLASTY dap 10.043 fl 55.2 kyphoplasty
[2023-09-14 10:29] LABS: Basophils # (A) 0.01 X 10*3/uL (0.00-0.10); Basophils % (A) 0.1 %; Eosinophils # (A) 0 X 10*3/uL (0.04-0.35); Eosinophils % (A) 0 %; HCT 32.2 % (37.2-46.3); HGB 10.8 g/dL (12.0-15.0); Lymphocytes # (A) 1.04 X 10*3/uL (0.90-5.00); Lymphocytes % (A) 9.7 %; MCH 31.4 pg (27.0-32.0); MCHC 33.5 g/dL (32.0-37.0); MCV 93.6 FL (80.0-97.0); Monocytes # (A) 0.48 X 10*3/uL (0.20-1.00); Monocytes % (A) 4.5 %; NRBC Per 100 WBC 0 X 10*3/uL (0.00-0.01); Neutrophils # (A) 9.12 X 10*3/uL (1.80-7.70); Neutrophils % (A) 85.2 %; Platelet Count 342 X 10*3/uL (140-440); RBC 3.44 X 10*6/uL (4.10-5.20); RDW 13.1 % (11.5-14.5)
[2023-09-14 10:45] LABS: BUN/Creat Ratio 32.75 Ratio (12.00-20.00); Blood Urea Nitrogen 39.3 mg/dL (9.0-27.0); Calcium 9.4 mg/dL (8.7-10.3); Chloride 100 mmol/L (96-109); Glucose 256 mg/dL (70-110); Magnesium 2.1 mg/dL (1.5-2.4); Potassium 4.8 mmol/L (3.5-5.5); Sodium 135 mmol/L (135-145)
[2023-09-14] MEDS: ALBUTEROL NEBULIZED 2.5 MG/3 ML INHALATION PRN (10:49)
--- NOTE | 2023-09-14 12:15 | P.PN ---
Subjective Progress Note Date: 09/14/23 Hospital course Patient is a very pleasant 73-year-old female with a past medical history of hypertension, hyperlipidemia, Parkinson's disease, asthma, diabetes mellitus, tremors, anxiety, depression, and bipolar disorder. She presented to the emergency department on 09/10/2023 with a chief complaint of lower back pain radiating into right buttocks with right lower extremity radiculopathy and numbness. Upon arrival to our facility, patient underwent evaluation in the emergency department. Vital signs upon arrival show blood pressure 187/90, heart rate 65, respiratory rate 18, temp 98.3 F, and SpO2 of 96% on room air. Labs were completed and reviewed. CBC showing stable normocytic anemia with hemoglobin of 10.7. Coagulation profile normal findings. BMP showing acute kidney injury with BUN of 38, creatinine 1.93, GFR of 25 with baseline creatinine of 1.1. In addition to acute kidney injury, patient was also found to have significant urinary retention of 1000 cc of urine requiring insertion of Cazares catheter. CT abdomen and pelvis was completed and was negative for acute intra-abdominal process showing dilation of bilateral renal collection systems with distended urinary bladder, cardiomegaly, and coronary artery arthrosclerosis. Patient had kyphoplasty on 09/14/2023 Subjective Patient seen this morning. She just had her kyphoplasty. She is currently resting in bed comfortably. She has no acute complaints. 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 twice daily and MiraLAX as needed Patient also started on steroids dexamethasone 4 mg every 6 hours Patient also has a TLC of brace at bedside Urinary retention I reviewed note from urology who is recommending to remove Cazares catheter and do voiding trial once patient is more ambulatory Will continue Cazares catheter for now Acute kidney injury secondary to urinary retention resolved Mild hyperkalemia Potassium this morning is 4.8 Mild leukocytosis Likely due to steroid WBC this morning is 10.7. Trending down Diabetes mellitus Blood glucose is better controlled today Patient only on sliding scale insulin Will add an additional 9 units with each meal Elevated liver enzymes This morning liver enzymes are trending down Liver ultrasound showing echotexture of the liver I suspect is due to fatty liver Patient is asymptomatic so no further workup and follow-up with PCP Hypertension hyperlipidemia Continue with aspirin atorvastatin Coreg Plavix DEEP inhibitor and Procardia Parkinson's disease Continue with carbidopa levodopa, Namenda and Aricept DVT prophylaxis: Subcu heparin Anticipated discharge: Anticipate patient be ready for discharge tomorrow Anticipated place at discharge: senior living facility Objective - Vital Signs Vital signs: Vital Signs Temp 95.9 F L 09/14/23 09:25 Pulse 72 09/14/23 11:00 Resp 16 09/14/23 09:25 BP 156/79 09/14/23 09:25 Pulse Ox 95 09/14/23 09:25 FiO2 28 09/14/23 10:55 Intake & Output 09/13/23 09/14/23 09/14/23 18:59 06:59 18:59 Intake Total 900 Output Total 1150 1600 2 Balance -1150 -1600 898 Intake: IV 900 Output: Urine 1150 1600 Estimated Blood Loss 2 Other: Voiding Method Indwelling Catheter Indwelling Catheter - Labs CBC & Chem 7: 09/14/23 06:29 09/14/23 06:29 Labs: Abnormal Lab Results - Last 24 Hours (Table) 09/13/23 09/13/23 09/13/23 Range/Units 12:15 17:13 20:09 WBC (4.50-10.00) X 10*3/uL RBC (4.10-5.20) X 10*6/uL Hgb (12.0-15.0) g/dL Hct (37.2-46.3) % Immature Gran # (0.00-0.04) X 10*3/uL Neutrophils # (1.80-7.70) X 10*3/uL Eosinophils # (0.04-0.35) X 10*3/uL Anion Gap (4.00-12.00) mmol/L BUN (9.0-27.0) mg/dL Est GFR (CKD-EPI) (>=60) BUN/Creatinine Ratio (12.00-20.00) Ratio Glucose (70-110) mg/dL POC Glucose (mg/dL) 360 H 267 H 252 H (70-110) mg/dL 09/14/23 09/14/23 09/14/23 Range/Units 06:29 06:29 07:18 WBC 10.70 H (4.50-10.00) X 10*3/uL RBC 3.44 L (4.10-5.20) X 10*6/uL Hgb 10.8 L (12.0-15.0) g/dL Hct 32.2 L (37.2-46.3) % Immature Gran # 0.05 H (0.00-0.04) X 10*3/uL Neutrophils # 9.12 H (1.80-7.70) X 10*3/uL Eosinophils # 0 L (0.04-0.35) X 10*3/uL Anion Gap 13.00 H (4.00-12.00) mmol/L BUN 39.3 H (9.0-27.0) mg/dL Est GFR (CKD-EPI) 48 L (>=60) BUN/Creatinine Ratio 32.75 H (12.00-20.00) Ratio Glucose 256 H (70-110) mg/dL POC Glucose (mg/dL) 243 H (70-110) mg/dL
[2023-09-14 12:19] LABS: Glucose,Whole Blood 250 mg/dL (70-110)
--- NOTE | 2023-09-14 16:22 | P.OP ---
Date of Procedure: 09/14/23 Preoperative Diagnosis: T12 VCF 40% anterior wedge compression Osteopenia Low back pain LE radiculopathy Postoperative Diagnosis: T12 VCF 40% anterior wedge compression Osteopenia Low back pain LE radiculopathy Procedure(s) Performed: T12 kyphoplasty with biopsy Implants: [place] cement Anesthesia: GETA Surgeon: Abdiaziz Hansen Estimated Blood Loss (ml): 2 IV fluids (ml): 300 Urine output (ml): 0 Pathology: other (T12) Condition: stable Disposition: PACU Indications for Procedure: Abiola Coombs is a 73-year-old femalepresenting for evaluation of mid back pain. It was my pleasure to have seen and examined Abiola Coombs. In our visit today we have had a chance to go over subjective complaints, phy sical examination findings and treatments including the natural course history without intervention and various interventional options. The patients imaging demonstrates T12 vertebral compression fracture with anterior wedging with 40% compression. This is present on previous films but has increased since these previous films. Previous films show 20% compression. On physical exam, Abiola Coombs demonstrates point tenderness over the T12-L1 region and supraspinous and spinous processes. Pain with ambulation and movement. Increased pain since inciting events.. I have explained to the patient that as their condition progresses it will cause further neurological deficits and eventual paralysis. Based on the patients imaging, physical exam, and the rapid progression and disabling nature of their symptoms, at this time I recommend surgery in the form or a: T12 kyphoplasty with biopsy. I discussed the risk and benefits of this procedure at length with Abiola Coombs. The patient and family agreed to considered pursuing the procedure abovementioned. Prior to surgery, she should follow up with her PCP (Cardio, ID, IM etc) for clearance. Questions were invited and answered, and the patient wishes to proceed as outlined below. Currently, I am recommendin. T12 kyphoplasty with biopsy Description of Procedure: Thoracic (12) Kyphoplasty The patient was seen and examined in the preoperative area. All preoperative protocols were followed. Informed consent was obtained, risks and benefits of the procedure were discussed at length. Risks including bleeding infection damage to the surrounding tissue and risk of reoperation were discussed with the patient. Risk of anesthesia up to and including was discussed with the patient. These are outlined in the risk review. They were willing to accept these risks and all the risks of surgery. The patient was given a weight-based dose of antibiotics in the form of 2 g Ancef. The patient was seen and evaluated by the anesthesia team who deemed them fit for surgery. The site was marked, the patient was willing to proceed with the procedure. The patient was transferred to the operative suite by the Department of anesthesia. They were then drifted off to sleep by the department anesthesia and GETA was performed. The patient tolerated this well. Once confirmation of lines and ventilation the patient was transferred to a prone Sharif table very carefully. All bony prominences including wrists, elbows, axilla, chest, hips, and thighs, and feet were padded very well. Special attention was paid to the genitalia, and these were padded accordingly. SCDs were placed on bilateral lower extremities and were connected. Arms were well padded and placed on arm boards up and out in the 90/90 position. Once in position, again we confirmed good ventilation capabilities and that lines were running appropriately. The patients Thoracic spine was then exposed. 1010s were placed outlining the incision site. Standard alcohol was used to clean the incision site and allowed to dry. C-arm was used to needle localize the pedicles at T12 and bio-abdiaziz the patient and confirm level for incision which was marked with a skin marker. Operative briefing was performed with all teams and everyone in agreement to proceed. The patient was then prepped and draped in a normal sterile fashion. Timeout was then performed, and all parties agreed with the procedure to be performed. Skin kenya was made. Jamshitdi was passed into the T12 vertebral body via the pedicle. This was done with biplane fluoroscopy. Once in good position in the body the trochar is removed. Biopsy needle was passed into the body and a biopsy was taken. Drill was then passed and biopsy material taken from drill as well. Curette then used to reduce endplate and create more space. Balloon was then passed an inflated which showed good reduction of endplate on AP and Lateral and confirmed central placement. The cement was then placed and pt remained stable. Good fill of cement was seen without extravasation. Once good fill, the Jamshedi was removed and the wound irrigated. The skin was closed with a simple stitch and dressed with a bandaid. The patient was then transferred off the table back to their hospital bed a- traumatically. They were extubated by the department of anesthesia. They were then transferred to PACU in stable condition having tolerated the procedure with no complications.
[2023-09-14 17:21] LABS: Glucose,Whole Blood 246 mg/dL (70-110)
[2023-09-14 19:50] LABS: Glucose,Whole Blood 154 mg/dL (70-110)
[2023-09-14] MEDS: polyethylene glycoL 3350 17 GM POWD.PACK PO STA (20:53)
[2023-09-15 07:10] LABS: Glucose,Whole Blood 215 mg/dL (70-110)
[2023-09-15 08:44] VITALS: RESP 16
--- NOTE | 2023-09-15 11:30 | P.PN ---
Subjective Progress Note Date: 09/15/23 Principal diagnosis: T12 vertebral compression fracture; degenerative disc disease; lumbar spondylosis; right lower extremity radiculopathy Patient was seen at bedside this morning lying in the semirecumbent position with dressing over the spine and talking to telephonic case manager. Patient says she is going to [facility] later today. She is wondering if she will need to use TLSO brace all the time. Patient is looking forward to working with therapy daily at [facility]. Patient denies any orthopedic complaints at this time. Patient says that the pain is well-controlled in the back. Patient denies chest pain, fever, shortness of breath, nausea, vomiting, change in vision, loss of bowel control. Objective - Vital Signs Vital signs: Vital Signs Temp 97.8 F 09/15/23 07:07 Pulse 57 L 09/15/23 07:07 Resp 16 09/15/23 07:07 BP 171/67 09/15/23 07:07 Pulse Ox 95 09/15/23 07:08 FiO2 28 09/14/23 10:55 Intake & Output 09/14/23 09/15/23 09/15/23 18:59 06:59 18:59 Intake Total 900 Output Total 3002 1800 Balance -2102 -1800 Intake: IV 900 Output: Urine 3000 1800 Estimated Blood Loss 2 Other: Voiding Method Indwelling Catheter Indwelling Catheter - Exam Inspection: Negative for any open fractures, significant erythema/ecchymosis/open wounds. Incision clean, dry, intact. Sensation: Equal, symmetric, bilateral intact throughout the upper extremities on exam. There is some generalized numbness along the L5-S1 dermatome in the right lower extremity. Palpation: Some generalized tenderness palpation over the cervical spine at midline. Moderate tenderness to palpation over the lower thoracic and upper lumbar spine at midline. Mild TTP over upper to mid thoracic spine at midline. NTTP throughout rest of exam Range of motion: Patient does have good range of motion in the bilateral upper extremities on exam. Patient does have limited range of motion in the right hip in flexion secondary to referred pain to the low back and buttocks. Patient does have good range of motion in bilateral knees in flexion's extension and bilateral ankles and dorsi/plantarflexion. Motor: 4/5 in all major motor groups in bilateral upper extremities. 4-/5 in resisted right hip flexion/extension. 4/5 in all other major motor groups in bilateral lower extremities. Neurovascular: Radial pulses intact, 2+ bilaterally. Cap refill under 3 seconds in digits of upper extremities. Special test: Negative Jay bilaterally. Negative clonus bilaterally. Negative Pancho bilaterally. - Labs CBC & Chem 7: 09/14/23 06:29 09/14/23 06:29 Labs: Abnormal Lab Results - Last 24 Hours (Table) 09/14/23 09/14/23 09/14/23 Range/Units 12:18 17:19 19:48 POC Glucose (mg/dL) 250 H 246 H 154 H (70-110) mg/dL 09/15/23 Range/Units 07:08 POC Glucose (mg/dL) 215 H (70-110) mg/dL Assessment and Plan Assessment: 1. T12 vertebral compression fracture; degenerative disc disease; lumbar spondylosis; right lower extremity radiculopathy -Postop day 1 status post T12 kyphoplasty with biopsy Plan: 1. T12 vertebral compression fracture; degenerative disc disease; lumbar spondylosis; right lower extremity radiculopathy -T12 kyphoplasty with biopsy p erformed yesterday, , 09/14/2023. Patient stable bedside this morning with dressing present over spine. Assess dressing daily. TLSO brace to be worn as needed by the patient. Tylenol and Motrin as needed for pain. We are recommending PT/OT daily. Weightbearing as tolerated with walker and assistance. Patient is stable from orthopedic standpoint for discharge from the hospital. Follow-up in office in [address] Hansen. At this time, orthopedics is signing off. Please do not hesitate to contact us for any further questions. 2. Appreciate medical management 3. Pain management -gabapentin; Tylenol 4. DVT prophylaxis -aspirin; Plavix 5. GI prophylaxis -Protonix 6. PT/OT -weightbearing as tolerated with walker and assistance 7. Encourage incentive spirometer use Time with Patient: Less than 30
[2023-09-15 12:01] LABS: Glucose,Whole Blood 310 mg/dL (70-110)
--- NOTE | 2023-09-15 12:46 | P.DS ---
Providers Date of admission: 09/10/23 20:30 Attending physician: Titi Baxter MD Consults: 09/11/23 00:06 Consult Physician Routine Consulting Provider: Dawit Beck Consult Reason/Comments: urinary retention Do you want consulting provider notified?: Yes 09/11/23 11:31 Consult Physician Routine Consulting Provider: Abdiaziz Hansen Consult Reason/Comments: lumbar back pain, RLE numbness, Urinary Retention Do you want consulting provider notified?: Yes Primary care physician: [facility] Course: Hospital course Patient is a very pleasant 73-year-old female with a past medical history of hypertension, hyperlipidemia, Parkinson's disease, asthma, diabetes mellitus, tremors, anxiety, depression, and bipolar disorder. She presented to the emergency department on 09/10/2023 with a chief complaint of lower back pain radiating into right buttocks with right lower extremity radiculopathy and numbness. Upon arrival to our facility, patient underwent evaluation in the emergency department. Vital signs upon arrival show blood pressure 187/90, heart rate 65, respiratory rate 18, temp 98.3 F, and SpO2 of 96% on room air. Labs were completed and reviewed. CBC showing stable normocytic anemia with hemoglobin of 10.7. Coagulation profile normal findings. BMP showing acute kidney injury with BUN of 38, creatinine 1.93, GFR of 25 with baseline c reatinine of 1.1. In addition to acute kidney injury, patient was also found to have significant urinary retention of 1000 cc of urine requiring insertion of Cazares catheter. CT abdomen and pelvis was completed and showed dilation of bilateral renal collection systems with distended urinary bladder, cardiomegaly, and coronary artery arthrosclerosis. Patient also had CT scans of her spine that showed compression fracture. Patient was admitted to the medicine service. Patient had a Cazares catheter placed. Patient's renal function then improved. Patient also seen by urology who recommended to remove the Cazares catheter once patient is more ambulatory. Patient will need voiding trial when she goes to rehab. Patient also seen by orthopedic surgery. Patient had kyphoplasty of her thoracic spine. After the procedure patient reported significant improvement in her back pain. Patient was then deemed stable for discharge to care home facility.: Physical exam General examination - Alert and Oriented 3 in NAD Heart - + S1S2 no murmurs Lungs - Clear to auscultation Abdomen soft NT ND +ve BS : Cazares catheter in place Extremities - No edema MEDICAL CLERK - Moving all 4 extremities spontaneously Psych - Calm and cooperative Discharge diagnosis Acute lower back pain T12 compression fracture Urinary retention Acute kidney injury secondary to urinary retention Mild hyperkalemia: Resolved Mild leukocytosis likely due to steroids Diabetes mellitus Elevated liver enzymes likely due to fatty liver Hypertension Hyperlipidemia Parkinson's disease I spent a total of 33 minutes with this discharge Patient Condition at Discharge: Stable Plan - Discharge Summary New Discharge Prescriptions: New Sennosides [Senokot] 8.6 mg PO BID tab HYDROcodone/APAP 5-325MG [[place] 5-325] 1 tab PO Q4HR PRN 3 Days #18 tab PRN Reason: Pain Continue Ascorbic Acid [Vitamin C] 500 mg PO DAILY@0800 ALPRAZolam [Xanax] 0.5 mg PO DAILY PRN PRN Reason: Anxiety Memantine [Namenda] 10 mg PO HS@1999 Gabapentin [Neurontin] 300 mg PO BID@08,1999 Donepezil [Aricept] 10 mg PO HS@1999 lamoTRIgine 150 mg PO BID@0800,1999 Multivit/Folic Acid/Vit K1 [One-A-Day Women's 50 Plus Tab] 1 tab PO DAILY@0800 Cyanocobalamin (Vitamin B-12) [Vitamin B-12] 1,000 mcg PO DAILY@0800 Albuterol Sulfate [Ventolin HFA] 1 - 2 puff INHALATION RT-Q4H PRN PRN Reason: Shortness Of Breath Benztropine Mesylate 0.5 mg PO DAILY@0800 Carbidopa-Levodopa 25-250 mg [Sinemet 25-250 mg] 1 tab PO TID@0800,1400,1999 Docusate [Colace] 100 mg PO BID@0800,1999 Ferrous Sulfate [Iron (65 MG Elemental)] 325 mg PO HS@1999 Irbesartan [Avapro] 300 mg PO DAILY@1400 Melatonin 3 mg PO HS@1999 OLANZapine [ZyPREXA] 2.5 mg PO HS@1999 Pioglitazone [Actos] 30 mg PO DAILY@0800 metFORMIN HCL [Glucophage] 1,000 mg PO BID@0800,1700 NIFEdipine XL [Procardia XL] 90 mg PO DAILY@1400 Atorvastatin [Lipitor] 80 mg PO HS@1999 Aspirin 81 mg PO DAILY@0800 ARIPiprazole [Abilify] 10 mg PO HS@1999 buPROPion HCL [Wellbutrin XL] 300 mg PO DAILY@0800 Cholecalciferol [Vitamin D3 (25 Mcg = 1000 Iu)] 50 mcg PO HS@1999 hydroCHLOROthiazide [Hydrodiuril] 25 mg PO DAILY@0800 Spironolactone [Aldactone] 50 mg PO HS@1999 Pantoprazole [Protonix] 40 mg PO DAILY@0700 Clopidogrel [Plavix] 75 mg PO DAILY@0800 carvediloL [Coreg] 12.5 mg PO BID@0800,1700 Biotin 1000mcg 1 tab PO DAILY@1700 Discharge Medication List ALPRAZolam [Xanax] 0.5 mg PO DAILY PRN 11/23/17 [History] Ascorbic Acid [Vitamin C] 500 mg PO DAILY@0800 11/23/17 [History] Cyanocobalamin (Vitamin B-12) [Vitamin B-12] 1,000 mcg PO DAILY@0800 11/23/17 [History] Donepezil [Aricept] 10 mg PO HS@199911/23/17 [History] Gabapentin [Neurontin] 300 mg PO BID@0800,199911/23/17 [History] Memantine [Namenda] 10 mg PO HS@199911/23/17 [History] Multivit/Folic Acid/Vit K1 [One-A-Day Women's 50 Plus Tab] 1 tab PO DAILY@0800 11/23/17 [History] lamoTRIgine 150 mg PO BID@0800,199911/23/17 [History] ARIPiprazole [Abilify] 10 mg PO HS@199906/16/21 [History] Albuterol Sulfate [Ventolin HFA] 1 - 2 puff INHALATION RT-Q4H PRN 06/16/21 [History] Benztropine Mesylate 0.5 mg PO DAILY@0800 06/16/21 [History] Carbidopa-Levodopa 25-250 mg [Sinemet 25-250 mg] 1 tab PO TID@0800,1400,199906/16/21 [History] Cholecalciferol [Vitamin D3 (25 Mcg = 1000 Iu)] 50 mcg PO HS@199906/16/21 [History] Docusate [Colace] 100 mg PO BID@0800,199906/16/21 [History] Ferrous Sulfate [Iron (65 MG Elemental)] 325 mg PO HS@199906/16/21 [History] Irbesartan [Avapro] 300 mg PO DAILY@139906/16/21 [History] Melatonin 3 mg PO HS@199906/16/21 [History] buPROPion HCL [Wellbutrin XL] 300 mg PO DAILY@79906/16/21 [History] hydroCHLOROthiazide [Hydrodiuril] 25 mg PO DAILY@79906/16/21 [History] OLANZapine [ZyPREXA] 2.5 mg PO HS@199912/20/22 [History] Aspirin 81 mg PO DAILY@79909/10/23 [History] Atorvastatin [Lipitor] 80 mg PO HS@199909/10/23 [History] Biotin 1000mcg 1 tab PO DAILY@169909/10/23 [History] Clopidogrel [Plavix] 75 mg PO DAILY@79909/10/23 [History] NIFEdipine XL [Procardia XL] 90 mg PO DAILY@139909/10/23 [History] Pantoprazole [Protonix] 40 mg PO DAILY@0709/10/23 [History] Pioglitazone [Actos] 30 mg PO DAILY@79909/10/23 [History] Spironolactone [Aldactone] 50 mg PO HS@199909/10/23 [History] carvediloL [Coreg] 12.5 mg PO BID@0800,17009/10/23 [History] metFORMIN HCL [Glucophage] 1,000 mg PO BID@0800,169909/10/23 [History] HYDROcodone/APAP 5-325MG [[place] 5-325] 1 tab PO Q4HR PRN 3 Days #18 tab 09/15/23 [Rx] Sennosides [Senokot] 8.6 mg PO BID tab 09/15/23 [Rx] Follow up Appointment(s)/Referral(s): Ming Lacy DO [Primary Care Provider] - 1-2 days Abdiaziz Hansen DO [Doctor of Osteopathic Medicine] - 2 Weeks Latrell Saavedra [NON-STAFF] - As Needed (TLSO BRACE) Patient Instructions/Handouts: Kyphoplasty (DC) Activity/Diet/Wound Care/Special Instructions: KURT MIKEGARCIA - BROTHER P: [phone] - APPROVED BY POA TO GIVE CONSENTS IF POA NOT AVAILABLE Discharge Disposition: TRANSFER TO SNF/ECF
[2023-09-15 13:45] VITALS: PULSE 64; TEMP 97.7
[2023-09-15 13:54] VITALS: BMI 35.3
[2023-09-15 14:41] VITALS: BP 151/70
== END 2023-09-15 17:11 | DRG 478 ==
LOC: EC 18:22 → 5NMEDONC 20:29 → OBSVTOIN 20:30 → 5NMEDONC 09-11 06:32
PROVIDERS: ADMIT Internal Medicine; ATTEND Internal Medicine
PROC: 0PB43ZX Excision of Thoracic Vertebra, Percutaneous Approach, Diagnostic (ICD-10-PCS; 2023-09-14)
PROC: 0PU43JZ Supplement Thoracic Vertebra with Synthetic Substitute, Percutaneous Approach (ICD-10-PCS; 2023-09-14)
PROC: 0PS43ZZ Reposition Thoracic Vertebra, Percutaneous Approach (ICD-10-PCS; principal; 2023-09-14 07:30)
DX: M48.54XA Collapsed vertebra, not elsewhere classified, thoracic region, initial encounter for fracture (principal); N13.30 Unspecified hydronephrosis; N17.9 Acute kidney failure, unspecified; D64.9 Anemia, unspecified; E78.5 Hyperlipidemia, unspecified; E87.5 Hyperkalemia; F31.9 Bipolar disorder, unspecified; G20.A1 Parkinson's disease without dyskinesia, without mention of fluctuations; G30.9 Alzheimer's disease, unspecified; F02.80 Dementia in other diseases classified elsewhere, unspecified severity, without behavioral disturbance, psychotic disturbance, mood disturbance, and anxiety; I10 Essential (primary) hypertension; E11.65 Type 2 diabetes mellitus with hyperglycemia; K76.0 Fatty (change of) liver, not elsewhere classified; M47.26 Other spondylosis with radiculopathy, lumbar region; M54.30 Sciatica, unspecified side; J45.909 Unspecified asthma, uncomplicated; M85.80 Other specified disorders of bone density and structure, unspecified site; T38.0X5A Adverse effect of glucocorticoids and synthetic analogues, initial encounter; Z79.02 Long term (current) use of antithrombotics/antiplatelets; Z79.82 Long term (current) use of aspirin; Z79.84 Long term (current) use of oral hypoglycemic drugs; Z79.899 Other long term (current) drug therapy; Z88.2 Allergy status to sulfonamides; Z88.5 Allergy status to narcotic agent; Z98.1 Arthrodesis status
CPT/HCPCS: 36415; 51702; 51798; 72100; 72128; 72131; 74176; 76705; 80048; 80053; 81003; 82150; 83036; 83690; 83735; 84132; 85025; 85027; 85610; 85730; 88307; 94640; 94760; 96361; 96372; 96374; 96375; 99285

== ENCOUNTER → 2023-11-24 | Outpatient (CLI) | payer MEDICARE ==
[2023-11-24 11:02] LABS: Amorphous Sediment,Urine Rare /hpf; Appearance,Urine Turbid (Clear); Bacteria,Urine Many /hpf; Bilirubin,Urine Negative (Negative); Blood,Urine Small (Negative); Color,Urine Light Yellow; Glucose,Urine (UA) Negative (Negative); Ketones,Urine Negative (Negative); Leukocyte Esterase,Urine Large (Negative); Mucus,Urine Rare /hpf; Nitrite,Urine Positive (Negative); PH, Urine 5.5 (5.0-8.0); Protein,Urine 1+ (Negative); RBC,Urine 30 /hpf (0-5); Specific Gravity,Urine 1.017 (1.001-1.035); Squamous Epithelial Cell,Urine 6 /hpf (0-4); Urobilinogen,Urine <2.0 mg/dL (<2.0); WBC,Urine >182 /hpf (0-5)
== END | disposition home or self-care (01) ==
LOC: LABWHC1 08:30
PROVIDERS: ATTEND Internal Medicine
DX: N39.0 Urinary tract infection, site not specified (principal)
CPT/HCPCS: 81001; 87077; 87086; 87186

== ENCOUNTER 2023-12-15 22:26 | Emergency (ER) | payer MEDICARE ==
[2023-12-15 22:33] VITALS: RESP 18
[2023-12-15 23:37] LABS: ALT 12 U/L (4-34); African American GFR (CKD) 46 (>60 ml/min/1.73 sqM); Albumin 3.8 g/dL (3.5-5.0); Anion Gap 9 mmol/L; Blood Urea Nitrogen 35 mg/dL (7-17); Carbon Dioxide 21 mmol/L (22-30); Chloride 107 mmol/L (98-107); Glucose 168 mg/dL (74-99); Non-African American GFR(CKD) 40 (>60 ml/min/1.73 sqM); Sodium 137 mmol/L (137-145); Total Bilirubin 0.5 mg/dL (0.2-1.3); Total Protein 6.3 g/dL (6.3-8.2)
[2023-12-15 23:40] LABS: Basophils % (A) 0 %; Eosinophils # (A) 0.2 k/uL (0-0.7); Eosinophils % (A) 3 %; HCT 26.5 % (34.0-46.0); HGB 8.8 gm/dL (11.4-16.0); Lymphocytes # (A) 0.8 k/uL (1.0-4.8); Lymphocytes % (A) 14 %; MCH 31.9 pg (25.0-35.0); MCHC 33.3 g/dL (31.0-37.0); MCV 95.8 fL (80.0-100.0); Mean Platelet Volume 7.5; Monocytes # (A) 0.5 k/uL (0-1.0); Monocytes % (A) 9 %; Neutrophils % (A) 72 %; Platelet Count 290 k/uL (150-450); RBC 2.77 m/uL (3.80-5.40); RDW 13.4 % (11.5-15.5); WBC 5.6 k/uL (3.8-10.6)
[2023-12-15 23:42] LABS: AST 25 U/L (14-36); Alkaline Phosphatase 69 U/L (38-126); Potassium 4.9 mmol/L (3.5-5.1)
[2023-12-15 23:45] LABS: Prothrombin Time 10.6 sec (10.0-12.5)
--- NOTE | 2023-12-15 23:49 | ED ---
GI Bleed HPI - General Chief complaint: GI Bleed Stated complaint: Rectal bleeding Time Seen by Provider: 12/15/23 22:44 Source: patient, EMS Mode of arrival: EMS - History of Present Illness Initial comments: This patient is 73-year-old woman who presents to have evaluation of GI bleeding. The patient states that she does have history of having episodic diarrhea. She states "since May, every so often it jumps," referring to bowel movements. She states that when it happened this evening she noticed that there was dark blood and clots present. She has not had bleeding before. The patient denies any abdominal pain. She does state that she takes Plavix and aspirin. She had not noted symptoms of anemia, no orthostatic symptoms, syncope, palpitations, chest pain, dyspnea or diaphoresis. MD complaint: melena Onset/Timin -: hour(s) Severity scale (1-10): 0 Quality: painless Consistency: intermittent Improves with: none Worsens with: none Context: blood thinners Associated Symptoms: denies other symptoms Treatments Prior to Arrival: none - Related Data Home Medications Medication Instructions Recorded Confirmed ALPRAZolam [Xanax] 0.5 mg PO DAILY PRN 11/23/17 09/10/23 Ascorbic Acid [Vitamin C] 500 mg PO DAILY@79911/23/17 09/10/23 Cyanocobalamin (Vitamin B-12) 1,000 mcg PO DAILY@79911/23/17 09/10/23 [Vitamin B-12] Donepezil [Aricept] 10 mg PO HS@199911/23/17 09/10/23 Gabapentin [Neurontin] 300 mg PO BID@799,199911/23/17 09/10/23 Memantine [Namenda] 10 mg PO HS@199911/23/17 09/10/23 Multivit/Folic Acid/Vit K1 1 tab PO DAILY@79911/23/17 09/10/23 [One-A-Day Women's 50 Plus Tab] lamoTRIgine 150 mg PO BID@08,199911/23/17 09/10/23 ARIPiprazole [Abilify] 10 mg PO HS@199906/16/21 09/10/23 Albuterol Sulfate [Ventolin HFA] 1 - 2 puff INHALATION RT-Q4H PRN 06/16/21 09/10/23 Benztropine Mesylate 0.5 mg PO DAILY@79906/16/21 09/10/23 Carbidopa-Levodopa 25-250 mg 1 tab PO TID@0800,1399,199906/16/21 09/10/23 [Sinemet 25-250 mg] Cholecalciferol [Vitamin D3 (25 50 mcg PO HS@199906/16/21 09/10/23 Mcg = 1000 Iu)] Docusate [Colace] 100 mg PO BID@799,199906/16/21 09/10/23 Ferrous Sulfate [Iron (65 MG 325 mg PO HS@199906/16/21 09/10/23 Elemental)] Irbesartan [Avapro] 300 mg PO DAILY@139906/16/21 09/10/23 Melatonin 3 mg PO HS@199906/16/21 09/10/23 buPROPion HCL [Wellbutrin XL] 300 mg PO DAILY@79906/16/21 09/10/23 hydroCHLOROthiazide [Hydrodiuril] 25 mg PO DAILY@79906/16/21 09/10/23 OLANZapine [ZyPREXA] 2.5 mg PO HS@199912/20/22 09/10/23 Aspirin 81 mg PO DAILY@79909/10/23 09/10/23 Atorvastatin [Lipitor] 80 mg PO HS@199909/10/23 09/10/23 Biotin 1000mcg 1 tab PO DAILY@169909/10/23 09/10/23 Clopidogrel [Plavix] 75 mg PO DAILY@79909/10/23 09/10/23 NIFEdipine XL [Procardia XL] 90 mg PO DAILY@139909/10/23 09/10/23 Pantoprazole [Protonix] 40 mg PO DAILY@69909/10/23 09/10/23 Pioglitazone [Actos] 30 mg PO DAILY@79909/10/23 09/10/23 Spironolactone [Aldactone] 50 mg PO HS@199909/10/23 09/10/23 carvediloL [Coreg] 12.5 mg PO BID@0800,0 09/10/23 09/10/23 metFORMIN HCL [Glucophage] 1,000 mg PO BID@0800,1700 09/10/23 09/10/23 Previous Rx's Medication Instructions Recorded HYDROcodone/APAP 5-325MG [[place] 1 tab PO Q4HR PRN 3 Days #18 tab 09/15/23 5-325] Sennosides [Senokot] 8.6 mg PO BID tab 09/15/23 Allergies Allergy/AdvReac Type Severity Reaction Status Date / Time codeine Allergy Itching Verified 09/14/23 07:07 Sulfa (Sulfonamide Allergy Rash/Hives Verified 09/14/23 07:07 Antibiotics) tree nut [Nut] Allergy Anaphylaxis Verified 09/14/23 07:07 Review of Systems ROS Statement: Those systems with pertinent positive or pertinent negative responses have been documented in the HPI. ROS Other: All systems not noted in ROS Statement are negative. Constitutional: Denies: fever, chills, weakness Respiratory: Denies: cough, dyspnea Cardiovascular: Denies: chest pain, palpitations, edema Gastrointestinal: Reports: diarrhea, melena. Denies: abdominal pain, nausea, v omiting, hematochezia Genitourinary: Denies: dysuria, hematuria Musculoskeletal: Denies: back pain Skin: Denies: rash Neurological: Denies: headache, weakness, numbness Past Medical History Past Medical History: Asthma, Dementia, Diabetes Mellitus, Hyperlipidemia, Hypertension, Pneumonia, Syncope Additional Past Medical History / Comment(s): Chronic vertigo if pt lies on her sides, NIDDM type II, neuropathy bilateral hands and occasionally in feet, "preparkinsonism", tremors, cardiac murmur, pancreatitis, R shoulder discomfort since injury 2 weeks ago, anemia, rare UTI, constipation. History of Any Multi-Drug Resistant Organisms: None Reported Past Surgical History: Appendectomy, Cholecystectomy, Hysterectomy, Orthopedic Surgery Additional Past Surgical History / Comment(s): Eploratory with appendectomy, cervical fusion. Past Anesthesia/Blood Transfusion Reactions: No Reported Reaction Past Psychological History: Anxiety, Bipolar, Depression Smoking Status: Never smoker Past Alcohol Use History: Rare Past Drug Use History: None Reported - Past Family History Mother History Unknown: Yes Family Medical History: Coronary Artery Disease (CAD), Eye Disorder Additional Family Medical History / Comment(s): Mother of heart problems. She had macular degeneration Father Family Medical History: Diabetes Mellitus Additional Family Medical History / Comment(s): Father of diabetic complications. General Exam General appearance: alert, in no apparent distress Head exam: Present: atraumatic, normocephalic Eye exam: Present: normal appearance. Absent: scleral icterus, conjunctival injection ENT exam: Present: normal oropharynx Neck exam: Present: normal inspection Respiratory exam: Present: normal lung sounds bilaterally. Absent: respiratory distress, wheezes, rales, rhonchi, stridor, accessory muscle use Cardiovascular Exam: Present: regular rate, normal rhythm, normal heart sounds. Absent: systolic murmur, diastolic murmur, rubs, gallop GI/Abdominal exam: Present: soft. Absent: distended, tenderness, guarding, rebound, rigid, mass Rectal exam: Present: normal inspection, bloody stool. Absent: fecal impaction, hemorrhoids, mass, tenderness Extremities exam: Present: normal inspection, normal capillary refill. Absent: pedal edema, calf tenderness Back exam: Present: normal inspection. Absent: CVA tenderness (R), CVA tenderness (L) Neurological exam: Present: alert Skin exam: Present: warm, dry, intact, normal color. Absent: rash Course Vital Signs 12/15/23 12/16/23 12/16/23 22:26 01:33 02:25 Temperature 99.3 F 98.0 F Pulse Rate 76 71 Respiratory 18 18 Rate Blood Pressure 146/73 116/56 O2 Sat by Pulse 96 97 Oximetry 12/16/23 02:26 Temperature Pulse Rate 73 Respiratory 18 Rate Blood Pressure 120/54 O2 Sat by Pulse 97 Oximetry Medical Decision Making - Medical Decision Making Patient is 73-year-old woman with painless dark red rectal bleeding. I discussed with her that we do not have gastroenterology coverage and she is amen able to being transferred to [facility] she states she had been there previously but not for GI bleeding. I discussed the case with Dr. Shell who is on-call, will accept the patient for transfer. Was pt. sent in by a medical professional or institution (, PA, [facility]IPPER, urgent care, hospital, or half-way...) When possible be specific @ -[No] Did you speak to anyone other than the patient for history (EMS, parent, family, police, friend...)? What history was obtained from this source @ -[No] Did you review nursing and triage notes (agree or disagree)? Why? @ -[I reviewed and agree with nursing and triage notes] Were old charts reviewed (outside hosp., previous admission, EMS record, old EKG, old radiological studies, urgent care reports/EKG's, half-way records)? Report findings @ -[No old charts were reviewed] Differential Diagnosis (chest pain, altered mental status, abdominal pain women, abdominal pain men, vaginal bleeding, weakness, fever, dyspnea, syncope, headache, dizziness, GI bleed, back pain, seizure, CVA, palpatations, mental health, musculoskeletal)? @ -[Differential GI Bleed: Esophageal varices, aortoenteric fistula, Anita-Willis, gastritis, peptic ulcer disease, diverticulosis, inflammatory bowel disease, hemorrhoids, fissure, colitis, malignancy, Meckel's diverticulum, this is not meant to be an all- inclusive list. EKG interpreted by me (3pts min.). @ -[As above] X-rays interpreted by me (1pt min.). @ -[None done] CT interpreted by me (1pt min.). @ -[None done] U/S interpreted by me (1pt. min.). @ -[None done] What testing was considered but not performed or refused? (CT, X-rays, U/S, labs)? Why? @ -[None] What meds were considered but not given or refused? Why? @ -[None] Did you discuss the management of the patient with other professionals (professionals i.e. , PA, [facility] CLIPPER, lab, RT, psych nurse, social science research assistant, range operator, teacher, assistant chief nursing officer, rn case mgr)? Give summary @ -[See notes above Was smoking cessation discussed for >3mins.? @ -[No] Was critical care preformed (if so, how long)? @ -Yes, 30 minutes Were there social determinants of health that impacted care today? How? (Homelessness, low income, unemployed, alcoholism, drug addiction, transportation, low edu. Level, literacy, decrease access to med. care, long term, rehab)? @ -[No] Was there de-escalation of care discussed even if they declined (Discuss DNR or withdrawal of care, Hospice)? DNR status @ -[No] What co-morbidities impacted this encounter? (DM, HTN, Smoking, COPD, CAD, Cancer, CVA, ARF, Chemo, Hep., AIDS, mental health diagnosis, sleep apnea, morbid obesity)? @ -[None] Was patient admitted / discharged? Hospital course, mention meds given and route, prescriptions, significant lab abnormalities, going to OR and other pertinent info. @ -[See notes above Undiagnosed new problem with uncertain prognosis? @ -[No] Drug Therapy requiring intensive monitoring for toxicity (Heparin, Nitro, Insulin, Cardizem)? @ -[No] Were any procedures done? @ -[No] Diagnosis/symptom? @ -[Acute GI bleed Acute anemia Acute, or Chronic, or Acute on Chronic? @ -[Acute Uncomplicated (without systemic symptoms) or Complicated (systemic symptoms)? @ -[Uncomplicated Side effects of treatment? @ -[No] Exacerbation, Progression, or Severe Exacerbation? @ -[No] Poses a threat to life or bodily function? How? (Chest pain, USA, ND, pneumonia, PE, COPD, DKA, ARF, appy, cholecystitis, CVA, Diverticulitis, Homicidal, Suicidal, threat to staff... and all critical care pts) @ -[Yes there is risk of further bleeding with risk of hypotension and - Lab Data Result diagrams: 12/15/23 22:54 12/15/23 22:54 Lab Results 12/15/23 12/15/23 12/15/23 Range/Units 22:50 22:54 22:54 WBC 5.6 (3.8-10.6) k/uL RBC 2.77 L (3.80-5.40) m/uL Hgb 8.8 L (11.4-16.0) gm/dL Hct 26.5 L (34.0-46.0) % MCV 95.8 (80.0-100.0) fL MCH 31.9 (25.0-35.0) pg MCHC 33.3 (31.0-37.0) g/dL RDW 13.4 (11.5-15.5) % Plt Count 290 (150-450) k/uL MPV 7.5 Neutrophils % 72 % Lymphocytes % 14 % Monocytes % 9 % Eosinophils % 3 % Basophils % 0 % Neutrophils # 4.0 (1.3-7.7) k/uL Lymphocytes # 0.8 L (1.0-4.8) k/uL Monocytes # 0.5 (0-1.0) k/uL Eosinophils # 0.2 (0-0.7) k/uL Basophils # 0.0 (0-0.2) k/uL PT (10.0-12.5) sec INR (<1.2) APTT (22.0-30.0) sec Sodium (137-145) mmol/L Potassium (3.5-5.1) mmol/L Chloride (98-107) mmol/L Carbon Dioxide (22-30) mmol/L Anion Gap mmol/L BUN (7-17) mg/dL Creatinine (0.52-1.04) mg/dL Est GFR (CKD-EPI)AfAm (>60 ml/min/1.73 sqM) Est GFR (CKD-EPI)NonAf (>60 ml/min/1.73 sqM) Glucose (74-99) mg/dL Plasma Lactic Acid Sourav (0.7-2.0) mmol/L Calcium (8.4-10.2) mg/dL Total Bilirubin (0.2-1.3) mg/dL AST (14-36) U/L ALT (4-34) U/L Alkaline Phosphatase (38-126) U/L Troponin I (0.000-0.034) ng/mL Total Protein (6.3-8.2) g/dL Albumin (3.5-5.0) g/dL Stool Occult Blood Positive H (Negative) Blood Type Blood Type Confirm A Positive Blood Type Recheck Bld Type Recheck Status Antibody Screen Spec Expiration Date 12/15/23 12/15/23 12/15/23 Range/Units 22:54 22:54 22:54 WBC (3.8-10.6) k/uL RBC (3.80-5.40) m/uL Hgb (11.4-16.0) gm/dL Hct (34.0-46.0) % MCV (80.0-100.0) fL MCH (25.0-35.0) pg MCHC (31.0-37.0) g/dL RDW (11.5-15.5) % Plt Count (150-450) k/uL MPV Neutrophils % % Lymphocytes % % Monocytes % % Eosinophils % % Basophils % % Neutrophils # (1.3-7.7) k/uL Lymphocytes # (1.0-4.8) k/uL Monocytes # (0-1.0) k/uL Eosinophils # (0-0.7) k/uL Basophils # (0-0.2) k/uL PT 10.6 (10.0-12.5) sec INR 1.0 (<1.2) APTT 29.0 (22.0-30.0) sec Sodium 137 (137-145) mmol/L Potassium 4.9 (3.5-5.1) mmol/L Chloride 107 (98-107) mmol/L Carbon Dioxide 21 L (22-30) mmol/L Anion Gap 9 mmol/L BUN 35 H (7-17) mg/dL Creatinine 1.32 H (0.52-1.04) mg/dL Est GFR (CKD-EPI)AfAm 46 (>60 ml/min/1.73 sqM) Est GFR (CKD-EPI)NonAf 40 (>60 ml/min/1.73 sqM) Glucose 168 H (74-99) mg/dL Plasma Lactic Acid Sourav 1.8 (0.7-2.0) mmol/L Calcium 9.0 (8.4-10.2) mg/dL Total Bilirubin 0.5 (0.2-1.3) mg/dL AST 25 (14-36) U/L ALT 12 (4-34) U/L Alkaline Phosphatase 69 (38-126) U/L Troponin I (0.000-0.034) ng/mL Total Protein 6.3 (6.3-8.2) g/dL Albumin 3.8 (3.5-5.0) g/dL Stool Occult Blood (Negative) Blood Type Blood Type Confirm Blood Type Recheck Bld Type Recheck Status Antibody Screen Spec Expiration Date 12/15/23 12/15/23 Range/Units 22:54 22:54 WBC (3.8-10.6) k/uL RBC (3.80-5.40) m/uL Hgb (11.4-16.0) gm/dL Hct (34.0-46.0) % MCV (80.0-100.0) fL MCH (25.0-35.0) pg MCHC (31.0-37.0) g/dL RDW (11.5-15.5) % Plt Count (150-450) k/uL MPV Neutrophils % % Lymphocytes % % Monocytes % % Eosinophils % % Basophils % % Neutrophils # (1.3-7.7) k/uL Lymphocytes # (1.0-4.8) k/uL Monocytes # (0-1.0) k/uL Eosinophils # (0-0.7) k/uL Basophils # (0-0.2) k/uL PT (10.0-12.5) sec INR (<1.2) APTT (22.0-30.0) sec Sodium (137-145) mmol/L Potassium (3.5-5.1) mmol/L Chloride (98-107) mmol/L Carbon Dioxide (22-30) mmol/L Anion Gap mmol/L BUN (7-17) mg/dL Creatinine (0.52-1.04) mg/dL Est GFR (CKD-EPI)AfAm (>60 ml/min/1.73 sqM) Est GFR (CKD-EPI)NonAf (>60 ml/min/1.73 sqM) Glucose (74-99) mg/dL Plasma Lactic Acid Sourav (0.7-2.0) mmol/L Calcium (8.4-10.2) mg/dL Total Bilirubin (0.2-1.3) mg/dL AST (14-36) U/L ALT (4-34) U/L Alkaline Phosphatase (38-126) U/L Troponin I <0.012 (0.000-0.034) ng/mL Total Protein (6.3-8.2) g/dL Albumin (3.5-5.0) g/dL Stool Occult Blood (Negative) Blood Type A Positive Blood Type Confirm Blood Type Recheck No Previous Record Bld Type Recheck Status CABO Indicated Antibody Screen NEGATIVE Spec Expiration Date 12/18/2023 - 2353 Disposition Clinical Impression: Gastrointestinal hemorrhage, Anemia Disposition: OTHER INSTITUTION NOT DEFINED Condition: Fair Instructions (If sedation given, give patient instructions): Gastrointestinal Bleeding (ED) Is patient prescribed a controlled substance at d/c from ED?: No Referrals: Ming Lacy DO [Primary Care Provider] - 1-2 days - Out of Hospital Transfer - Req. Specs Out of Hospital Transfer - Requested Specifics: Other Emergency Center
[2023-12-16] MEDS: TRANEXAMIC 1,000 MG/100ML-NACL 1,000 MG in SALINE 1 100ML.BAG IVPB ONE (00:53)
[2023-12-16] MEDS: LORazepam 2 MG/ML INJ IV STA (01:35)
[2023-12-16 02:26] VITALS: TEMP 98
[2023-12-16 02:30] VITALS: BP 120/54; PULSE 73
== END 2023-12-16 02:36 | disposition other institution (70) ==
LOC: EC 22:26
CPT/HCPCS: 36415; 80053; 82272; 83605; 84484; 85025; 85610; 85730; 86850; 86900; 86901; 96365; 96375; 99291

== ENCOUNTER → 2024-01-30 | Outpatient (CLI) | payer MEDICARE ==
[2024-01-30 16:14] LABS: Appearance,Urine Clear (Clear); Bilirubin,Urine Negative (Negative); Blood,Urine Negative (Negative); Color,Urine Yellow (Yellow); Ketones,Urine Negative (Negative); Nitrite,Urine Negative (Negative); Urobilinogen,Urine 0.2 E.U./DL
[2024-01-30 16:20] LABS: Bacteria,Urine None Seen (None Seen)
[2024-01-30 16:39] LABS: Magnesium 1.6 mg/dL (1.5-2.4)
[2024-01-30 16:40] LABS: % Iron Saturation 20.15 (12.00-45.00); Albumin 4.3 g/dL (3.8-4.9); BUN/Creat Ratio 17.36 Ratio (12.00-20.00); Blood Urea Nitrogen 19.1 mg/dL (9.0-27.0); Calcium 9.7 mg/dL (8.7-10.3); Carbon Dioxide 23.7 mmol/L (21.6-31.8); Chloride 104 mmol/L (96-109); Ferritin 29.4 ng/mL (10.0-291.0); Glucose 155 mg/dL (70-110); Iron 81 UG/DL (50-170); Phosphorus 4.4 mg/dL (2.4-5.1); Potassium 4.9 mmol/L (3.5-5.5); Sodium 141 mmol/L (135-145); Total Iron Binding Capacity 402 UG/DL (228-460); Uric Acid 5.1 mg/dL (2.9-7.7)
[2024-01-30 16:56] LABS: Basophils # (A) 0.06 X 10*3/uL (0.00-0.10); Basophils % (A) 0.9 %; Eosinophils # (A) 0.22 X 10*3/uL (0.04-0.35); Eosinophils % (A) 3.1 %; Lymphocytes % (A) 19.9 %; MCHC 31.3 g/dL (32.0-37.0); MCV 96.1 FL (80.0-97.0); Mean Platelet Volume 10.3 FL (9.5-12.2); Monocytes # (A) 0.77 X 10*3/uL (0.20-1.00); Monocytes % (A) 10.9 %; NRBC Per 100 WBC 0 X 10*3/uL (0.00-0.01); Neutrophils # (A) 4.58 X 10*3/uL (1.80-7.70); Neutrophils % (A) 65.1 %; Platelet Count 335 X 10*3/uL (140-440); RBC 3.33 X 10*6/uL (4.10-5.20); WBC 7.04 X 10*3/uL (4.50-10.00)
[2024-01-30 20:46] LABS: Urine Creatinine 44.4 mg/dL (28.0-217.0)
== END | disposition home or self-care (01) ==
LOC: LABWHC1 10:07
PROVIDERS: ATTEND Internal Medicine Nephrology
DX: E55.9 Vitamin D deficiency, unspecified (principal); D64.9 Anemia, unspecified; N18.32 Chronic kidney disease, stage 3b; N25.81 Secondary hyperparathyroidism of renal origin; M10.9 Gout, unspecified; N39.0 Urinary tract infection, site not specified; R80.9 Proteinuria, unspecified
CPT/HCPCS: 36415; 80048; 81001; 82040; 82043; 82306; 82570; 82728; 83540; 83550; 83735; 83970; 84100; 84550; 85025; 86334; 86335

== ENCOUNTER → 2024-02-20 | Outpatient (CLI) | payer MEDICARE ==
--- NOTE | 2024-02-20 15:12 | US ---
EXAMINATION TYPE: US carotid duplex BILAT DATE OF EXAM: 02/20/2024 COMPARISON: NONE CLINICAL INDICATION: Female, 73 years old with history of I65.22 Stenosis of left carotid artery; Apoorva or smoker, hypertension, hyperlipidemia. Additional History: .... TECHNIQUE: Grayscale, color Doppler and spectral Doppler evaluation of the bilateral carotid systems and vertebral arteries. Indirect Doppler criteria was utilized. FINDINGS: EXAM MEASUREMENTS: RIGHT: Peak Systolic Velocity (PSV) cm/sec ----- Right CCA: 74.2 ----- Right ICA: 88.4 ----- Right ECA: 111 ICA/CCA ratio: 1.19 RIGHT: End Diastole cm/sec ----- Right CCA: 11.9 ----- Right ICA: 18.8 ----- Right ECA: 7.37 LEFT: Peak Systolic Velocity (PSV) cm/sec ----- Left CCA: 83.4 ----- Left ICA: 113 ----- Left ECA: 80.8 ICA/CCA ratio: 1.35 LEFT: End Diastole cm/sec ----- Left CCA: 10.5 ----- Left ICA: 23.8 ----- Left ECA: 8.91 VERTEBRALS (direction of flow): Right Vertebral: Antegrade Left Vertebral: Antegrade Rhythm: Normal FUR COAT SEWER NOTES: Plaque seen in bilateral bulbs. No elevated velocities. Color Doppler imaging shows patency with blood flow throughout the carotid artery. Spectral waveforms are within normal limits. IMPRESSION: No ultrasound evidence for hemodynamically significant stenosis. Criteria for Assigning % of Stenosis / Diameter reduction (Estimation based on the indirect measurements of the internal carotid artery velocities (ICA PSV). 1. Normal (no stenosis)=ICA PSV < 125 cm/s: ratio < 2.0: ICA EDV<40 cm/s. 2. Less than 50% stenosis=ICA PSV < 125 cm/s: ratio < 2.0: ICA EDV<40 cm/s. 3. 50 to 69% stenosis=ICA PSV of 125 to 230 cm/s: ration 2.0 ? 4.0: ICA EDV 40-100 cm/s. 4. Greater than 70% stenosis to near occlusion= ICA PSV > 230 cm/s: ratio > 4.0: ICA EDV > 100 cm/s. 5. Near occlusion= ICA PSV velocities may be low or undetectable: variable ratio and ICA EDV. 6. Total occlusion=unable to detect flow. [facility], , 02/20/2024 3:10 PM
== END | disposition home or self-care (01) ==
LOC: RADUSWWP 14:30
PROVIDERS: ATTEND Internal Medicine
DX: I65.22 Occlusion and stenosis of left carotid artery (principal); I10 Essential (primary) hypertension; E78.5 Hyperlipidemia, unspecified
CPT/HCPCS: 93880

== ENCOUNTER → 2024-04-01 | Outpatient (CLI) | payer MEDICARE ==
--- NOTE | 2024-04-01 10:08 | XR ---
EXAMINATION TYPE: XR chest 2V DATE OF EXAM: 04/01/2024 10:02 AM COMPARISON: 09/01/2023 CLINICAL INDICATION: Female, 74 years old with history of J45.901 asthma exacerbation, TECHNIQUE: XR chest 2V view(s) obtained. FINDINGS: The heart size is borderline prominent. The pulmonary vasculature is normal. Minimal linear opacity at the left base likely on the basis of plate atelectasis. IMPRESSION: 1. Minimal plate atelectasis left costophrenic angle [facility], , 04/01/2024 10:06 AM
== END | disposition home or self-care (01) ==
LOC: RADXRMAIN 09:48
PROVIDERS: ATTEND Internal Medicine
DX: J45.901 Unspecified asthma with (acute) exacerbation (principal); J98.11 Atelectasis
CPT/HCPCS: 71046

== ENCOUNTER 2024-06-24 09:11 | Inpatient (IN) | payer MEDICARE ==
--- NOTE | 2024-06-24 09:36 | ED ---
General Adult HPI - General Chief complaint: Extremity Problem,Nontraumatic Stated complaint: Weakness,SOB Time Seen by Provider: 06/24/24 09:15 Source: patient, EMS, RN notes reviewed, old records reviewed Mode of arrival: EMS Limitations: no limitations - History of Present Illness Initial comments: This is a 74-year-old female who presents to the emergency department complaining that she felt short of breath. Patient states she also has not urinated this morning and that is concerning her. Patient denies any abdominal pain or pressure. Patient denies any nausea vomiting diarrhea. Patient denies any chest pain or palpitation. Patient denies any cough. Patient states she also has a history of anxiety and sometimes it makes her feel short of breath. According to EMS her lungs are clear she has been oxygenating high 90s. Patient has had no fever or chills lately. - Related Data Home Medications Medication Instructions Recorded Confirmed ALPRAZolam [Xanax] 0.5 mg PO DAILY PRN 11/23/17 06/24/24 Ascorbic Acid [Vitamin C] 500 mg PO DAILY@0811/23/17 06/24/24 Cyanocobalamin (Vitamin B-12) 1,000 mcg PO DAILY@79911/23/17 06/24/24 [Vitamin B-12] Donepezil [Aricept] 10 mg PO HS@199911/23/17 06/24/24 Gabapentin [Neurontin] 300 mg PO BID@0800,199911/23/17 06/24/24 Memantine [Namenda] 10 mg PO HS@199911/23/17 06/24/24 Multivit/Folic Acid/Vit K1 1 tab PO DAILY@79911/23/17 06/24/24 [One-A-Day Women's 50 Plus Tab] lamoTRIgine 150 mg PO BID@0800,199911/23/17 06/24/24 Albuterol Sulfate [Ventolin HFA] 1 - 2 puff INHALATION RT-Q4H PRN 06/16/21 06/24/24 Benztropine Mesylate 0.5 mg PO HS@199906/16/21 06/24/24 Carbidopa-Levodopa 25-250 mg 1 tab PO TID@0800,1400,199906/16/21 06/24/24 [Sinemet 25-250 mg] Cholecalciferol [Vitamin D3 (25 50 mcg PO HS@199906/16/21 06/24/24 Mcg = 1000 Iu)] Docusate [Colace] 100 mg PO BID@799,1999 PRN 06/16/21 06/24/24 Ferrous Sulfate [Iron (65 MG 325 mg PO HS@199906/16/21 06/24/24 Elemental)] Irbesartan [Avapro] 300 mg PO DAILY@1400 06/16/21 06/24/24 Melatonin 3 mg PO HS@199906/16/21 06/24/24 buPROPion HCL [Wellbutrin XL] 300 mg PO DAILY@79906/16/21 06/24/24 Atorvastatin [Lipitor] 80 mg PO HS@199909/10/23 06/24/24 Pantoprazole [Protonix] 40 mg PO DAILY@69909/10/23 06/24/24 Pioglitazone [Actos] 30 mg PO DAILY@79909/10/23 06/24/24 metFORMIN HCL [Glucophage] 1,000 mg PO BID@0800,169909/10/23 06/24/24 ARIPiprazole [Abilify] 5 mg PO HS@199905/05/24 06/24/24 Biotin 1000mcg 1,000 mcg PO DAILY@169905/05/24 06/24/24 Cyclobenzaprine [Flexeril] 5 mg PO TID PRN 05/05/24 06/24/24 EPINEPHrine (Auto Inject) [Epipen] 0.3 mg IM ONCE PRN 05/05/24 06/24/24 Ibuprofen [Motrin] 600 mg PO Q8HR PRN 05/05/24 06/24/24 Meclizine [Antivert] 25 mg PO TID PRN 05/05/24 06/24/24 Nystatin 100,000 Unit/gm Powd 1 applic TOPICAL TID 05/05/24 06/24/24 [Mycostatin Powder] OLANZapine 5 mg PO HS@199905/05/24 06/24/24 Sennosides [Senokot] 8.6 mg PO BID PRN 05/05/24 06/24/24 Wheat Dextrin [Benefiber] 3 gm PO DAILY PRN 05/05/24 06/24/24 polyethylene glycoL 3350 [Miralax] 17 gm PO DAILY 05/05/24 06/24/24 ARIPiprazole [Abilify] 2 mg PO HS@199906/24/24 06/24/24 Aspirin EC [Ecotrin Low Dose] 81 mg PO DAILY@0806/24/24 06/24/24 Clopidogrel [Plavix] 75 mg PO DAILY@0800 06/24/24 06/24/24 NIFEdipine XL [Procardia XL] 90 mg PO DAILY@0906/24/24 06/24/24 Previous Rx's Medication Instructions Recorded carvediloL [Coreg*] 25 mg PO BID@0800,1700 #60 tab 05/09/24 Allergies Allergy/AdvReac Type Severity Reaction Status Date / Time aspartame Allergy Unknown Verified 06/24/24 10:31 clavulanic acid Allergy Unknown Verified 06/24/24 10:31 codeine Allergy Itching Verified 06/24/24 10:31 Penicillins Allergy Unknown Verified 06/24/24 10:31 phenylalanine Allergy Unknown Verified 06/24/24 10:31 saccharin Allergy Unknown Verified 06/24/24 10:31 Sulfa (Sulfonamide Allergy Rash/Hives Verified 06/24/24 10:31 Antibiotics) tree nut [Nut] Allergy Anaphylaxis Verified 06/24/24 10:31 Review of Systems ROS Statement: Those systems with pertinent positive or pertinent negative responses have been documented in the HPI. ROS Other: All systems not noted in ROS Statement are negative. Past Medical History Past Medical History: Asthma, Dementia, Diabetes Mellitus, Hyperlipidemia, Hypertension, Pneumonia, Syncope Additional Past Medical History / Comment(s): Chronic vertigo if pt lies on her sides, NIDDM type II, neuropathy bilateral hands and occasionally in feet, "preparkinsonism", tremors, cardiac murmur, pancreatitis, R shoulder discomfort since injury 2 weeks ago, anemia, rare UTI, constipation. History of Any Multi-Drug Resistant Organisms: None Reported Past Surgical History: Appendectomy, Cholecystectomy, Hysterectomy, Orthopedic Surgery Additional Past Surgical History / Comment(s): Exploratory with appendectomy, cervical fusion. Past Anesthesia/Blood Transfusion Reactions: No Reported Reaction Past Psychological History: Anxiety, Bipolar, Depression Smoking Status: Never smoker Past Alcohol Use History: Rare Past Drug Use History: None Reported - Past Family History Mother History Unknown: Yes Family Medical History: Coronary Artery Disease (CAD), Eye Disorder Additional Family Medical History / Comment(s): Mother of heart problems. She had macular degeneration Father Family Medical History: Diabetes Mellitus Additional Family Medical History / Comment(s): Father of diabetic complications. General Exam - General Exam Comments Initial Comments: GENERAL: Patient is well-developed and well-nourished. Patient is nontoxic and well- hydrated and is in no acute distress. ENT: Neck is soft and supple. No significant lymphadenopathy is noted. Oropharynx is clear. Moist mucous membranes. Neck has full range of motion without eliciting any pain. EYES: The sclera were anicteric and conjunctiva were pink and moist. Extraocular movements were intact and pupils were equal round and reactive to light. Eyelids were unremarkable. PULMONARY: Unlabored respirations. Good breath sounds bilaterally. No audible rales rhonchi or wheezing was noted. CARDIOVASCULAR: There is a regular rate and rhythm without any murmurs gallops or rubs. ABDOMEN: Soft and nontender with normal bowel sounds. SKIN: Skin is clear with no lesions or rashes and otherwise unremarkable. NEUROLOGIC: Patient is alert and oriented x3. Cranial nerves II through XII are grossly intact. Motor and sensory are also intact. Normal speech, volume and content. Symmetrical smile. MUSCULOSKELETAL: Normal extremities with adequate strength and full range of motion. LYMPHATICS: No significant lymphadenopathy is noted PSYCHIATRIC: Normal psychiatric evaluation. Limitations: no limitations Course Vital Signs 06/24/24 06/24/24 06/24/24 09:16 10:30 12:20 Temperature 97.4 F L 97.6 F Pulse Rate 59 L 51 L 47 L Respiratory 18 19 12 Rate Blood Pressure 129/68 107/50 131/59 O2 Sat by Pulse 93 L 94 L 91 L Oximetry 06/24/24 14:24 Temperature Pulse Rate 52 L Respiratory 12 Rate Blood Pressure 137/65 O2 Sat by Pulse 93 L Oximetry Medical Decision Making - Medical Decision Making EKG is interpreted by myself. EKG shows a sinus bradycardia 59 bpm DC was 160 QRS is 88 QT interval 4 7 QTc is 406. Patient's EKG shows no ST segment elevation or depression Was pt. sent in by a medical professional or institution (, PA, FIGHT MANAGER, urgent care, hospital, or [facility]...) When possible be specific @ -No Did you speak to anyone other than the patient for history (EMS, parent, family, police, friend...)? What history was obtained from this source @ -No Did you review nursing and triage notes (agree or disagree)? Why? @ -I reviewed and agree with nursing and triage notes Were old charts reviewed (outside hosp., previous admission, EMS record, old EKG, old radiological studies, urgent care reports/EKG's, [facility] records)? Report findings @ -No old charts were reviewed Differential Diagnosis? @ -Differential Dyspnea: Coronary syndrome, arrhythmia, tamponade, asthma, COPD, pulmonary embolism, pneumonia, pneumothorax, pulmonary effusion, anaphylaxis, diabetic ketoacidosis, flailed chest, pulmonary contusion, diaphragmatic rupture, anemia, neuromuscular, this is not meant to be an all-inclusive list. EKG interpreted by me (3pts min.). @ -As above X-rays interpreted by me (1pt min.). @ -Chest x-ray shows some left-sided pleural effusion with possible infiltrate versus pulmonary edema CT interpreted by me (1pt min.). @ -CT of the chest shows pleural effusion and groundglass appearance on the left base U/S interpreted by me (1pt. min.). @ -None done What testing was considered but not performed or refused? (CT, X-rays, U/S, labs)? Why? @ -None What meds were considered but not given or refused? Why? @ -None Did you discuss the management of the patient with other professionals (professionals i.e. , PA, FIGHT MANAGER, lab, RT, psych nurse, public health social worker, foreign languages professor, teacher, principal gifts officer, nurse outreach case manager)? Give summary @ -I spoke with sound physicians they agreed to admit the patient. Was smoking cessation discussed for >3mins.? @ -No Was critical care preformed (if so, how long)? @ -No Were there social determinants of health that impacted care today? How? (Homelessness, low income, unemployed, alcoholism, drug addiction, transportation, low edu. Level, literacy, decrease access to med. care, halfway, rehab)? @ -No Was there de-escalation of care discussed even if they declined (Discuss DNR or withdrawal of care, Hospice)? DNR status @ -No What co-morbidities impacted this encounter? (DM, HTN, Smoking, COPD, CAD, Cancer, CVA, ARF, Chemo, Hep., AIDS, mental health diagnosis, sleep apnea, morbid obesity)? @ -Patient's x-ray and CAT scan are most consistent with some pulmonary edema I did an ABG showed the pulse ox to be 85% so I gave the patient Lasix and admitted the patient to [facility] Was patient admitted / discharged? Hospital course, mention meds given and route, prescriptions, significant lab abnormalities, going to OR and other pertinent info. @ -Hospital course Undiagnosed new problem with uncertain prognosis? @ -No Drug Therapy requiring intensive monitoring for toxicity (Heparin, Nitro, Insulin, Cardizem)? @ -No Were any procedures done? @ -No Diagnosis/symptom? @ -Pulmonary edema Acute, or Chronic, or Acute on Chronic? @ -Acute Uncomplicated (without systemic symptoms) or Complicated (systemic symptoms)? @ -Complicate Side effects of treatment? @ -No Exacerbation, Progression, or Severe Exacerbation? @ -No Poses a threat to life or bodily function? How? (Chest pain, [place], [place], pneumonia, PE, COPD, DKA, ARF, appy, cholecystitis, CVA, Diverticulitis, Homicidal, S uicidal, threat to staff... and all critical care pts) @ -Yes this can lead to hypoxia and endorgan dysfunction - Lab Data Result diagrams: 06/24/24 09:37 06/24/24 09:37 Lab Results 06/24/24 06/24/24 06/24/24 Range/Units 09:37 09:37 09:37 WBC 4.6 (3.8-10.6) k/uL RBC 2.92 L (3.80-5.40) m/uL Hgb 8.7 L D (11.4-16.0) gm/dL Hct 27.5 L (34.0-46.0) % MCV 94.3 (80.0-100.0) fL MCH 29.6 (25.0-35.0) pg MCHC 31.4 (31.0-37.0) g/dL RDW 14.6 (11.5-15.5) % Plt Count 305 (150-450) k/uL MPV 7.4 Neutrophils % 64 % Lymphocytes % 18 % Monocytes % 9 % Eosinophils % 5 % Basophils % 0 % Neutrophils # 3.0 (1.3-7.7) k/uL Lymphocytes # 0.8 L (1.0-4.8) k/uL Monocytes # 0.4 (0-1.0) k/uL Eosinophils # 0.2 (0-0.7) k/uL Basophils # 0.0 (0-0.2) k/uL Sodium 136 L (137-145) mmol/L Potassium 4.3 (3.5-5.1) mmol/L Chloride 102 (98-107) mmol/L Carbon Dioxide 23 (22-30) mmol/L Anion Gap 11 mmol/L BUN 25 H (7-17) mg/dL Creatinine 1.29 H (0.52-1.04) mg/dL Est GFR (CKD-EPI)AfAm 47 (>60 ml/min/1.73 sqM) Est GFR (CKD-EPI)NonAf 41 (>60 ml/min/1.73 sqM) Glucose 227 H (74-99) mg/dL Calcium 8.8 (8.4-10.2) mg/dL Total Bilirubin 0.8 (0.2-1.3) mg/dL AST 16 (14-36) U/L ALT 8 (4-34) U/L Alkaline Phosphatase 59 (38-126) U/L NT-Pro-B Natriuret Pep 491 pg/mL Total Protein 6.0 L (6.3-8.2) g/dL Albumin 3.4 L (3.5-5.0) g/dL Urine Color Urine Appearance (Clear) Urine pH (5.0-8.0) Ur Specific [place] (1.001-1.035) Urine Protein (Negative) Urine Glucose (UA) (Negative) Urine Ketones (Negative) Urine Blood (Negative) Urine Nitrite (Negative) Urine Bilirubin (Negative) Urine Urobilinogen (<2.0) mg/dL Ur Leukocyte Esterase (Negative) Urine WBC (0-5) /hpf Ur Squamous Epith Cells (0-4) /hpf Urine Mucus (None) /hpf Influenza Type A (PCR) (Not Detectd) Influenza Type B (PCR) (Not Detectd) RSV (PCR) (Not Detectd) SARS-CoV-2 (PCR) (Not Detectd) 06/24/24 06/24/24 Range/Units 12:53 13:45 WBC (3.8-10.6) k/uL RBC (3.80-5.40) m/uL Hgb (11.4-16.0) gm/dL Hct (34.0-46.0) % MCV (80.0-100.0) fL MCH (25.0-35.0) pg MCHC (31.0-37.0) g/dL RDW (11.5-15.5) % Plt Count (150-450) k/uL MPV Neutrophils % % Lymphocytes % % Monocytes % % Eosinophils % % Basophils % % Neutrophils # (1.3-7.7) k/uL Lymphocytes # (1.0-4.8) k/uL Monocytes # (0-1.0) k/uL Eosinophils # (0-0.7) k/uL Basophils # (0-0.2) k/uL Sodium (137-145) mmol/L Potassium (3.5-5.1) mmol/L Chloride (98-107) mmol/L Carbon Dioxide (22-30) mmol/L Anion Gap mmol/L BUN (7-17) mg/dL Creatinine (0.52-1.04) mg/dL Est GFR (CKD-EPI)AfAm (>60 ml/min/1.73 sqM) Est GFR (CKD-EPI)NonAf (>60 ml/min/1.73 sqM) Glucose (74-99) mg/dL Calcium (8.4-10.2) mg/dL Total Bilirubin (0.2-1.3) mg/dL AST (14-36) U/L ALT (4-34) U/L Alkaline Phosphatase (38-126) U/L NT-Pro-B Natriuret Pep pg/mL Total Protein (6.3-8.2) g/dL Albumin (3.5-5.0) g/dL Urine Color Yellow Urine Appearance Clear (Clear) Urine pH 5.5 (5.0-8.0) Ur Specific [place] 1.015 (1.001-1.035) Urine Protein 1+ H (Negative) Urine Glucose (UA) Negative (Negative) Urine Ketones Negative (Negative) Urine Blood Negative (Negative) Urine Nitrite Negative (Negative) Urine Bilirubin Negative (Negative) Urine Urobilinogen <2.0 (<2.0) mg/dL Ur Leukocyte Esterase Small H (Negative) Urine WBC 7 H (0-5) /hpf Ur Squamous Epith Cells <1 (0-4) /hpf Urine Mucus Rare H (None) /hpf Influenza Type A (PCR) Not Detected (Not Detectd) Influenza Type B (PCR) Not Detected (Not Detectd) RSV (PCR) Not Detected (Not Detectd) SARS-CoV-2 (PCR) Not Detected (Not Detectd) Disposition Clinical Impression: Pulmonary edema Disposition: ADMITTED IP TO THIS HOSP Referrals: Ming Lacy DO [Primary Care Provider] - 1-2 days Time of Disposition: 15:37
--- NOTE | 2024-06-24 10:05 | XR ---
EXAMINATION TYPE: XR chest 2V DATE OF EXAM: 06/24/2024 CLINICAL INDICATION: Female, 74 years old with history of Difficulty breathing , TECHNIQUE: Frontal and lateral views of the chest are obtained. COMPARISON: Chest x-ray May 04, 2024 FINDINGS: Persistent cardiomegaly. There is new posterior left basilar opacity. Right lung is clear. Tiny bilateral pleural effusions are seen on lateral view. Vertebroplasty near the thoracolumbar junc tion at moderate compression type fracture is redemonstrated. IMPRESSION: Cardiomegaly with new posterior left basilar acute infiltrate and/or atelectasis and tiny bilateral pleural effusions. [facility], , 06/24/2024 10:03 AM
[2024-06-24 10:08] LABS: ALT 8 U/L (4-34); AST 16 U/L (14-36); African American GFR (CKD) 47 (>60 ml/min/1.73 sqM); Albumin 3.4 g/dL (3.5-5.0); Alkaline Phosphatase 59 U/L (38-126); Anion Gap 11 mmol/L; Blood Urea Nitrogen 25 mg/dL (7-17); Calcium 8.8 mg/dL (8.4-10.2); Carbon Dioxide 23 mmol/L (22-30); Chloride 102 mmol/L (98-107); Glucose 227 mg/dL (74-99); Non-African American GFR(CKD) 41 (>60 ml/min/1.73 sqM); Potassium 4.3 mmol/L (3.5-5.1); Sodium 136 mmol/L (137-145); Total Bilirubin 0.8 mg/dL (0.2-1.3)
[2024-06-24 10:16] LABS: Basophils % (A) 0 %; Eosinophils # (A) 0.2 k/uL (0-0.7); Eosinophils % (A) 5 %; HCT 27.5 % (34.0-46.0); Lymphocytes # (A) 0.8 k/uL (1.0-4.8); Lymphocytes % (A) 18 %; MCH 29.6 pg (25.0-35.0); MCHC 31.4 g/dL (31.0-37.0); MCV 94.3 fL (80.0-100.0); Mean Platelet Volume 7.4; Monocytes # (A) 0.4 k/uL (0-1.0); Monocytes % (A) 9 %; Neutrophils % (A) 64 %; Platelet Count 305 k/uL (150-450); RBC 2.92 m/uL (3.80-5.40); RDW 14.6 % (11.5-15.5); WBC 4.6 k/uL (3.8-10.6)
[2024-06-24 10:17] LABS: HGB 8.7 gm/dL (11.4-16.0)
[2024-06-24 13:36] LABS: Appearance,Urine Clear (Clear); Bilirubin,Urine Negative (Negative); Blood,Urine Negative (Negative); Color,Urine Yellow; Glucose,Urine (UA) Negative (Negative); Ketones,Urine Negative (Negative); Leukocyte Esterase,Urine Small (Negative); Mucus,Urine Rare /hpf; Nitrite,Urine Negative (Negative); PH, Urine 5.5 (5.0-8.0); Protein,Urine 1+ (Negative); Specific Gravity,Urine 1.015 (1.001-1.035); Squamous Epithelial Cell,Urine <1 /hpf (0-4); Urobilinogen,Urine <2.0 mg/dL (<2.0); WBC,Urine 7 /hpf (0-5)
--- NOTE | 2024-06-24 13:47 | CT ---
EXAMINATION TYPE: CT chest wo con CT DLP: 421.8 mGycm, Automated exposure control for dose reduction was used. DATE OF EXAM: 06/24/2024 1:25 PM COMPARISON: Chest radiograph from same day. CLINICAL INDICATION:Female, 74 years old with history of Difficulty breathing; PHH, Difficulty breath ing and weakness TECHNIQUE: Multiple axial images were obtained through the chest without IV contrast. Lack of IV or o ral contrast limits evaluation of solid and hollow organ viscera. . Coronal and sagittal reformats re viewed. FINDINGS: LUNGS/ PLEURA: No pneumothorax. Small left pleural effusion. Patchy mosaic attenuation throughout the lungs with left greater than right. Few scattered pulmonary nodules. Examples include a right lower lobe 4.6 mm pulmonary nodule (series 205, image 32), right midlung 4.1 mm nodule (series 205, image 2 9), right lower lobe 7 mm pulmonary nodule (series 205, image 35). Left basilar reticular opacities. AIRWAY: Patent and unremarkable.. HEART: Cardiomegaly is demonstrated.No pericardial effusion Severe coronary artery calcifications pre sent. Mitral annulus calcifications. MEDIASTINUM: No gross evidence of adenopathy. VASCULATURE: No aortic aneurysm. Atherosclerotic calcification of the aorta and its branches. Dilate d main pulmonary artery measuring up to 3.8 cm. MUSCULOSKELETAL: No acute osseous abnormalities. Couple small calcifications adjacent to the right hu meral head suggesting calcific tendinosis. Postsurgical changes with vertebral augmentation involving the T12 vertebral body. Additional postsurgical changes from cervical fusion partially visualized. M ultilevel degenerative disc disease. SOFT TISSUES/LYMPH NODES: Unremarkable. LOWER NECK: No significant findings. UPPER ABDOMEN: Gallbladder is surgically absent. Partial visualization of right renal cyst measuring up to 2.6 cm. Small hiatal hernia. IMPRESSION: 1. Small left pleural effusion with left basilar reticular opacities which may represent atelectasis versus atypical pneumonia. Additional scattered mosaic attenuation throughout the lungs which can be seen with pulmonary edema versus atypical pneumonia. 2. Few scattered pulmonary nodules measuring up to 7 mm. According to Fleischner criteria, recommend follow-up CT chest in 6-12 months. 3. Cardiomegaly. 4. Severe coronary artery calcifications. 5. Dilatation of the main pulmonary artery suggesting pulmonary arterial hypertension. [facility], , 06/24/2024 1:45 PM
[2024-06-24 14:27] LABS: Influenza A Not Detected (Not Detectd); Influenza B Not Detected (Not Detectd); RSV Not Detected (Not Detectd)
[2024-06-24] MEDS: FUROSEMIDE 10 MG/ML 2 ML VIAL IV STA (15:07)
[2024-06-24 15:28] LABS: ABG Base Excess 0.7 mmol/L; ABG HCO3 26 mmol/L (21-25); ABG Oxygen Saturation 85.7 % (94-97); ABG PCO2 41 mmHg (35-45); ABG TCO2 27 mmol/L (19-24); Allen Test Performed? Yes
[2024-06-24 15:34] LABS: ABG PO2 52 mmHg (83-108)
[2024-06-24] MEDS: carvediloL 12.5 MG TAB PO SCH (17:22)
[2024-06-24] MEDS: NITROGLYCERIN OINT 1 INCH/GM PACKET TOPICAL SCH (17:23)
[2024-06-24] MEDS: cefTRIAXone IN SWFI 1,000 MG/10 ML SYRINGE IVP STA ×2 (17:25→17:26)
[2024-06-24] MEDS: AZITHROMYCIN 500 MG in SODIUM CHLORIDE 0.9% 250 ML IVPB STA (17:32)
[2024-06-24] MEDS: FUROSEMIDE 10 MG/ML 4 ML VIAL IV SCH (17:36)
[2024-06-24] MEDS ORDERED: DEXTROSE 50% SYRINGE 50 ML IVP PRN ×2 (17:50)
--- NOTE | 2024-06-24 18:13 | P.HPIM ---
History of Present Illness H&P Date: 06/24/24 History of present illness; 74-year-old female with PMH of HFpEF (most recent echocardiogram 05/05/2024 showed EF 55 to 60%), CAD s/p stent placement, asthma, Alzheimer's dementia (sees Dr. Huntley), non-insulin dependent diabetes mellitus, hyperlipidemia, hypertension, vertigo and anxiety. Presents to the emergency room today complaining of worsening shortness of breath. She has noted a weight gain of approximately 10 pounds over the last month. Additionally, she notes that she has not urinated this morning which is caused her more concern. She denies a cough, chest pain, palpitations, abdominal pain/pressure, nausea, vomiting, diarrhea. She does note that due to her history of anxiety she occasionally can feel short of breath secondary to that. Per the EMS's report she had been sat urating in the 90%'s. Labratory review: -WBCs 4.6, hemoglobin 8.7, hematocrit 27.5, platelet 305; sodium 136, potassium 4.3, BUN 25, creatinine 1.29, calcium 8.8, total bilirubin 0.8, AST 16, ALT 8, alkaline phosphatase 59, proBNP 491 - ABG: pH 7.40, pCO2 41, PO2 52 -Respiratory viral panel all negative Imaging: -Chest x-ray done in the ER independently read and interpreted showed cardiomega ly with a new left-sided posterior basilar acute infiltrate and/or atelectasis along with tiny bilateral pleural effusions -CT chest shows small left pleural effusion with left basilar reticular opaci ties, representing atelectasis vs atypical pneumonia with additional scattered mosaic attenuation throughout the lungs consistent with pulmonary edema vs atypical pneumonia -CTA head and neck done showed no significant stenosis, aneurysm or thrombus in the intracranial circulation -EKG done in the ER showed heart rate of 59, sinus bradycardia, no ST segment elevation or depression seen, no T-wave inversions seen. Vitals: -On arrival blood pressure 129/68, heart rate 59, respiratory rate 18, SpO2 93% on room air -Most recently: Blood pressure 137/65, heart rate 52, respiratory rate 12, SpO2 93% on 2 L nasal cannula Patient admitted to internal medicine service REVIEW OF SYSTEMS: Pertinent positives and negatives noted in HPI. The rest of the 14-point review of systems is negative. Physical Exam: General: nontoxic, no distress, appears at stated age Derm: warm, dry, intact Head: atraumatic, normocephalic, symmetric Eyes: EOMI, anicteric sclera Mouth: no lip lesion, mucus membranes moist Cardiovascular: S1 S2 reg, no murmur, rubs, or gallops; JVD observable Lungs: CTA bilateral, no rales, no accessory muscle use Abdominal: soft, non-tender to palpataion, no appreciable organomegaly Extremities: no gross muscle atrophy, dry skin, 1+ pitting edema bilateral lower extremities Neuro: Alert, Oriented, CNII-XII grossly intact, gait normal Psych: well appearing, appropriate affect Assessment and plan 74-year-old female with PMH of HFpEF (most recent echocardiogram 05/05/2024 showed EF 55 to 60%), CAD s/p stent placement, asthma, Alzheimer's dementia (sees Dr. Huntley), diabetes mellitus, hyperlipidemia, hypertension, vertigo and anxiety. Presents to the emergency room today complaining of worsening shortness of breath. Has been admitted to the internal medicine service for further evaluation. #Acute hypoxic respiratory failure, likely secondary to HFpEF exacerbation (most recent echocardiogram 05/05/2024 showed EF 55 to 60%) -Chest x-ray and CT chest independently read and interpreted -Wean supplemental oxygen as possible, maintaining SPO2 88-90% -Given recent echocardiogram, no need for repeat at this time -Given 1 dose Rocephin and azithromycin in the ED; antibiotics discontinued -Procalcitonin ordered, currently pending -proBNP 491 -Given a total of 40 mg IV Lasix in the ED; will continue with 20 mg IV Lasix every 12 hours starting tomorrow morning -Monitor daily weights and strict I's and O's -Initiate a fluid restriction of 1500 cc #Urinary retention #Oliguric DEE DEE in the setting of above -Bladder scan showed > 300 cc urine -Cazares catheter inserted, drained 500 cc and then Cazares immediately removed -Continue to monitor BMP -If worsening signs/symptoms of DEE DEE discontinue Cozaar 100 mg daily #CAD s/p stenting -Resume home medications #[id number]-sqhletjkj diabetes mellitus -Accucheks -Sliding scale initiated -Monitor for hypoglucemia #Hyperlipidemia -Resume home crestor 40 mg #Hypertension -Resume home anti-hypertension medications #Asthma #Dementia #Vertigo #Anxiety #Bipolar disorder #Depression -Resumed home medications for Anxiety/depression/bipolar disorder/dementia -Hold home meclizine -Hold home ventolin inhaler GI prophylaxis: DVT prophylaxis: Heparin Subcu 5,000 units Q12H The patient is admitted with an anticipated more than than 2 midnight stay for evaluation of HFpEF exacerbation CODE STATUS: Full code Discussed with: Patient Anticipated discharge place: Pending clinical course Dictation was produced using [employer] dictation software. please excuse any grammatical, word or spelling errors. Tez Pandya MD PGY-1 IM I saw and evaluated the patient during the logan and critical portions of this encounter, and discussed the case in detail with the resident author of this note, I agree with the Assessment and Plan, and my changes, if any, are highlighted in blue. Past Medical History Past Medical History: Asthma, Dementia, Diabetes Mellitus, Hyperlipidemia, Hypertension, Pneumonia, Syncope Additional Past Medical History / Comment(s): Chronic vertigo if pt lies on her sides, NIDDM type II, neuropathy bilateral hands and occasionally in feet, "preparkinsonism", tremors, cardiac murmur, pancreatitis, R shoulder discomfort since injury 2 weeks ago, anemia, rare UTI, constipation. History of Any Multi-Drug Resistant Organisms: None Reported Past Surgical History: Appendectomy, Cholecystectomy, Hysterectomy, Orthopedic Surgery Additional Past Surgical History / Comment(s): Exploratory with appendectomy, cervical fusion. Past Anesthesia/Blood Transfusion Reactions: No Reported Reaction Past Psychological History: Anxiety, Bipolar, Depression Smoking Status: Never smoker Past Alcohol Use History: Rare Past Drug Use History: None Reported - Past Family History Mother History Unknown: Yes Family Medical History: Coronary Artery Disease (CAD), Eye Disorder Additional Family Medical History / Comment(s): Mother of heart problems. She had macular degeneration Father Family Medical History: Diabetes Mellitus Additional Family Medical History / Comment(s): Father of diabetic complications. Medications and Allergies Home Medications Medication Instructions Recorded Confirmed Type ALPRAZolam [Xanax] 0.5 mg PO DAILY PRN 11/23/17 06/24/24 History Ascorbic Acid [Vitamin C] 500 mg PO DAILY@79911/23/17 06/24/24 History Cyanocobalamin (Vitamin B-12) 1,000 mcg PO DAILY@79911/23/17 06/24/24 History [Vitamin B-12] Donepezil [Aricept] 10 mg PO HS@199911/23/17 06/24/24 History Gabapentin [Neurontin] 300 mg PO BID@799,199911/23/17 06/24/24 History Memantine [Namenda] 10 mg PO HS@199911/23/17 06/24/24 History Multivit/Folic Acid/Vit K1 1 tab PO DAILY@79911/23/17 06/24/24 History [One-A-Day Women's 50 Plus Tab] lamoTRIgine 150 mg PO BID@799,199911/23/17 06/24/24 History Albuterol Sulfate [Ventolin HFA] 1 - 2 puff INHALATION RT-Q4H PRN 06/16/21 06/24/24 History Benztropine Mesylate 0.5 mg PO HS@199906/16/21 06/24/24 History Carbidopa-Levodopa 25-250 mg 1 tab PO TID@0800,1399,199906/16/21 06/24/24 History [Sinemet 25-250 mg] Cholecalciferol [Vitamin D3 (25 50 mcg PO HS@199906/16/21 06/24/24 History Mcg = 1000 Iu)] Docusate [Colace] 100 mg PO BID@799,1999 PRN 06/16/21 06/24/24 History Ferrous Sulfate [Iron (65 MG 325 mg PO HS@199906/16/21 06/24/24 History Elemental)] Irbesartan [Avapro] 300 mg PO DAILY@1400 06/16/21 06/24/24 History Melatonin 3 mg PO HS@199906/16/21 06/24/24 History buPROPion HCL [Wellbutrin XL] 300 mg PO DAILY@0800 06/16/21 06/24/24 History Atorvastatin [Lipitor] 80 mg PO HS@199909/10/23 06/24/24 History Pantoprazole [Protonix] 40 mg PO DAILY@0709/10/23 06/24/24 History Pioglitazone [Actos] 30 mg PO DAILY@0800 09/10/23 06/24/24 History metFORMIN HCL [Glucophage] 1,000 mg PO BID@0800,1700 09/10/23 06/24/24 History ARIPiprazole [Abilify] 5 mg PO HS@199905/05/24 06/24/24 History Biotin 1000mcg 1,000 mcg PO DAILY@1700 05/05/24 06/24/24 History Cyclobenzaprine [Flexeril] 5 mg PO TID PRN 05/05/24 06/24/24 History EPINEPHrine (Auto Inject) [Epipen] 0.3 mg IM ONCE PRN 05/05/24 06/24/24 History Ibuprofen [Motrin] 600 mg PO Q8HR PRN 05/05/24 06/24/24 History Meclizine [Antivert] 25 mg PO TID PRN 05/05/24 06/24/24 History Nystatin 100,000 Unit/gm Powd 1 applic TOPICAL TID 05/05/24 06/24/24 History [Mycostatin Powder] OLANZapine 5 mg PO HS@199905/05/24 06/24/24 History Sennosides [Senokot] 8.6 mg PO BID PRN 05/05/24 06/24/24 History Wheat Dextrin [Benefiber] 3 gm PO DAILY PRN 05/05/24 06/24/24 History polyethylene glycoL 3350 [Miralax] 17 gm PO DAILY 05/05/24 06/24/24 History carvediloL [Coreg*] 25 mg PO BID@0800,1700 #60 tab 05/09/24 06/24/24 Rx ARIPiprazole [Abilify] 2 mg PO HS@199906/24/24 06/24/24 History Aspirin EC [Ecotrin Low Dose] 81 mg PO DAILY@0806/24/24 06/24/24 History Clopidogrel [Plavix] 75 mg PO DAILY@0800 06/24/24 06/24/24 History NIFEdipine XL [Procardia XL] 90 mg PO DAILY@0900 06/24/24 06/24/24 History Allergies Allergy/AdvReac Type Severity Reaction Status Date / Time aspartame Allergy Unknown Verified 06/24/24 10:31 clavulanic acid Allergy Unknown Verified 06/24/24 10:31 codeine Allergy Itching Verified 06/24/24 10:31 Penicillins Allergy Unknown Verified 06/24/24 10:31 phenylalanine Allergy Unknown Verified 06/24/24 10:31 saccharin Allergy Unknown Verified 06/24/24 10:31 Sulfa (Sulfonamide Allergy Rash/Hives Verified 06/24/24 10:31 Antibiotics) tree nut [Nut] Allergy Anaphylaxis Verified 06/24/24 10:31 Physical Exam Osteopathic Statement: *. No significant issues noted on an osteopathic structural exam other than those noted in the History and Physical/Consult. Vitals: Vital Signs Temp Pulse Resp BP Pulse Ox 06/24/24 14:24 52 L 12 137/65 93 L 06/24/24 12:20 97.6 F 47 L 12 131/59 91 L 06/24/24 10:30 51 L 19 107/50 94 L 06/24/24 09:16 97.4 F L 59 L 18 129/68 93 L Intake and Output 06/24/24 06/24/24 06/24/24 06:59 14:59 22:59 Output Total 350 Balance -350 Output: Post Void Residual 350 Other: Weight 83.007 kg Results CBC & Chem 7: 06/24/24 09:37 06/24/24 09:37 Labs: Abnormal Lab Results - Last 24 Hours (Table) 06/24/24 06/24/24 06/24/24 Range/Units 09:37 09:37 12:53 RBC 2.92 L (3.80-5.40) m/uL Hgb 8.7 L D (11.4-16.0) gm/dL Hct 27.5 L (34.0-46.0) % Lymphocytes # 0.8 L (1.0-4.8) k/uL ABG pO2 (83-108) mmHg ABG HCO3 (21-25) mmol/L ABG Total CO2 (19-24) mmol/L ABG O2 Saturation (94-97) % Hemoglobin (11.4-16.0) gm/dL Sodium 136 L (137-145) mmol/L BUN 25 H (7-17) mg/dL Creatinine 1.29 H (0.52-1.04) mg/dL Glucose 227 H (74-99) mg/dL Total Protein 6.0 L (6.3-8.2) g/dL Albumin 3.4 L (3.5-5.0) g/dL Urine Protein 1+ H (Negative) Ur Leukocyte Esterase Small H (Negative) Urine WBC 7 H (0-5) /hpf Urine Mucus Rare H (None) /hpf 06/24/24 Range/Units 15:22 RBC (3.80-5.40) m/uL Hgb (11.4-16.0) gm/dL Hct (34.0-46.0) % Lymphocytes # (1.0-4.8) k/uL ABG pO2 52 L* (83-108) mmHg ABG HCO3 26 H (21-25) mmol/L ABG Total CO2 27 H (19-24) mmol/L ABG O2 Saturation 85.7 L (94-97) % Hemoglobin 8.6 L (11.4-16.0) gm/dL Sodium (137-145) mmol/L BUN (7-17) mg/dL Creatinine (0.52-1.04) mg/dL Glucose (74-99) mg/dL Total Protein (6.3-8.2) g/dL Albumin (3.5-5.0) g/dL Urine Protein (Negative) Ur Leukocyte Esterase (Negative) Urine WBC (0-5) /hpf Urine Mucus (None) /hpf
[2024-06-24] MEDS: FUROSEMIDE 10 MG/ML 2 ML VIAL IV ONE (18:26)
[2024-06-24 18:35] LABS: Glucose,Whole Blood 164 mg/dL (70-110)
[2024-06-24 20:18] LABS: Glucose,Whole Blood 153 mg/dL (70-110)
[2024-06-24] MEDS: lamoTRIgine 100 MG TAB PO SCH (21:07)
[2024-06-24] MEDS: MELATONIN 3 MG TABLET PO SCH (21:07)
[2024-06-24] MEDS: MEMANTINE 10 MG TAB PO SCH (21:07)
[2024-06-24] MEDS: GABAPENTIN 300 MG CAP PO SCH (21:08)
[2024-06-24] MEDS: HEPARIN SODIUM,PORCINE 5,000 UNIT/ML 1 ML VIAL SQ SCH (21:08)
[2024-06-24] MEDS: ATORVASTATIN 80 MG TAB PO SCH (21:08)
[2024-06-24] MEDS: INSULIN LISPRO (HumaLOG) 100 UNIT/ML 10 mL VL SQ SCH (21:08)
[2024-06-24] MEDS: DONEPEZIL 10 MG TAB PO SCH (21:08)
[2024-06-24] MEDS: CARBIDOPA-LEVODOPA 25-250 MG 1 EACH TAB PO SCH (21:38)
[2024-06-24] MEDS: ARIPiprazole 5 MG TAB PO SCH (21:38)
[2024-06-24] MEDS: OLANZapine 5 MG TAB PO SCH (21:38)
[2024-06-24] MEDS: BENZTROPINE MESYLATE 0.5 MG TAB PO SCH (21:38)
[2024-06-24] MEDS: ARIPiprazole 2 MG TAB PO SCH (21:38)
[2024-06-25 03:58] LABS: Basophils # (A) 0.04 10*3/uL (0.00-0.10); Basophils % (A) 0.6 %; Eosinophils # (A) 0.22 10*3/uL (0.04-0.35); Eosinophils % (A) 3.4 %; HCT 23.9 % (37.2-46.3); HGB 7.9 g/dL (12.0-15.0); Lymphocytes # (A) 1.19 10*3/uL (0.90-5.00); Lymphocytes % (A) 18.5 %; MCH 31.2 pg (27.0-32.0); MCHC 33.1 g/dL (32.0-37.0); MCV 94.5 fL (80.0-97.0); Mean Platelet Volume 9.2 fL (9.5-12.2); Monocytes # (A) 0.79 10*3/uL (0.20-1.00); Monocytes % (A) 12.3 %; Neutrophils # (A) 4.17 10*3/uL (1.80-7.70); Platelet Count 302 10*3/uL (140-440); RBC 2.53 10*6/uL (4.10-5.20); RDW 14.2 % (11.5-14.5); WBC 6.42 10*3/uL (4.50-10.00)
[2024-06-25 04:26] LABS: African American GFR (CKD) 50 (>60 ml/min/1.73 sqM); Anion Gap 10 mmol/L; Blood Urea Nitrogen 26 mg/dL (7-17); Calcium 9.1 mg/dL (8.4-10.2); Carbon Dioxide 24 mmol/L (22-30); Chloride 104 mmol/L (98-107); Glucose 81 mg/dL (74-99); Magnesium 1.7 mg/dL (1.6-2.3); Non-African American GFR(CKD) 44 (>60 ml/min/1.73 sqM); Potassium 4.2 mmol/L (3.5-5.1); Sodium 138 mmol/L (137-145)
[2024-06-25 06:22] LABS: Glucose,Whole Blood 100 mg/dL (70-110)
[2024-06-25] MEDS: PANTOPRAZOLE 40 MG TABLET PO SCH (06:37)
[2024-06-25] MEDS: ASPIRIN 81 MG PO SCH (08:35)
[2024-06-25] MEDS: NIFEdipine XL 90 MG TAB.ER.24 PO SCH (08:37)
[2024-06-25] MEDS: CYANOCOBALAMIN 500 MCG TAB PO SCH (08:37)
[2024-06-25] MEDS: CLOPIDOGREL 75 MG TAB PO SCH (08:37)
[2024-06-25] MEDS: buPROPion XL 300 MG TAB.ER.24H PO SCH (08:39)
[2024-06-25] MEDS: FUROSEMIDE 10 MG/ML 2 ML VIAL IV SCH (08:43)
[2024-06-25] MEDS ORDERED: AZITHROMYCIN 500 MG in SODIUM CHLORIDE 0.9% 250 ML IVPB SCH (09:00)
[2024-06-25 11:32] LABS: Glucose,Whole Blood 235 mg/dL (70-110)
--- NOTE | 2024-06-25 12:28 | P.PN ---
Subjective Progress Note Date: 06/25/24 74-year-old female with PMH of HFpEF (most recent echocardiogram 05/05/2024 showed EF 55 to 60%), CAD s/p stent placement, asthma, Alzheimer's dementia (sees Dr. Huntley), non-insulin dependent diabetes mellitus, hyperlipidemia, hypertension, vertigo and anxiety. Presents to the emergency room today comp laining of worsening shortness of breath. She has noted a weight gain of approximately 10 pounds over the last month. Additionally, she notes that she has not urinated this morning which is caused her more concern. She denies a cough, chest pain, palpitations, abdominal pain/pressure, nausea, vomiting, diarrhea. She does note that due to her history of anxiety she occasionally can feel short of breath secondary to that. Per the EMS's report she had been saturating in the 90%'s. 06/25 - She is seen and examined at bedside this morning, now on the fourth floor. States that she is feeling okay, and has no acute complaints this morning. Notes that she is able to lie closer to flat on her back without getting as short of breath as previously. However, does not know any improvement in her leg swelling. She does state that she is able to urinate without issue. REVIEW OF SYSTEMS: Pertinent positives and negatives noted in HPI. Physical Exam: General: nontoxic, no distress, appears at stated age Derm: warm, dry, intact Head: atraumatic, normocephalic, symmetric Eyes: EOMI, anicteric sclera Mouth: no lip lesion, mucus membranes moist Cardiovascular: S1 S2 reg, no murmur, rubs, or gallops; JVD observable Lungs: CTA bilateral, no rales, no accessory muscle use Abdominal: soft, non-tender to palpataion, no appreciable organomegaly Extremities: no gross muscle atrophy, dry skin, 1+ pitting edema bilateral lower extremities, worse on the right than the left Neuro: Alert, Oriented, CNII-XII grossly intact, gait normal Psych: well appearing, appropriate affect Data Received Today: Labs: WBC 6.42, hemoglobin 7.9, hematocrit 23.9, platelet 302; sodium 138, potassium 4.2, BUN 26, creatinine 1.23, hemoglobin A1c 6.8, calcium 9.1, magnesium 1.7 Imagining: No new imaging today Assessment and plan 74-year-old female with PMH of HFpEF (most recent echocardiogram 05/05/2024 showed EF 55 to 60%), CAD s/p stent placement, asthma, Alzheimer's dementia (sees Dr. Huntley), diabetes mellitus, hyperlipidemia, hypertension, vertigo and anxiety. Presents to the emergency room today complaining of worsening shortness of breath. Has been admitted to the internal medicine service for further evaluation. #Acute hypoxic respiratory failure, likely secondary to HFpEF exacerbation (most recent echocardiogram 05/05/2024 showed EF 55 to 60%) -Chest x-ray and CT chest independently read and interpreted -Wean supplemental oxygen as possible, maintaining SPO2 88-90% -Given recent echocardiogram, no need for repeat at this time -proBNP 491 -Continue with 20 mg IV Lasix every 12 hours; monitor urine output, consider increasing to 40 mg IV Lasix if urine output inadequate -Monitor daily weights and strict I's and O's -Initiate a fluid restriction of 1500 cc #Urinary retention #Non-Oliguric DEE DEE in the setting of above -Currently urinating without issue, will continue to monitor for signs of retention -Continue to monitor BMP -If worsening signs/symptoms of DEE DEE discontinue Cozaar 100 mg daily -Consider renal ultrasound if persistent worsening of kidney function #Chronic normocytic anemia -Extensive workup completed during previous visit within the last 6 months -Continue to monitor CBC closely -Continue more extensive workup or hematology consultation if hemoglobin continues to decrease with no signs of active bleeding -Transfuse for Hgb < 7 #CAD s/p stenting -Resume home medications #Pex-[id number] diabetes mellitus -Accucheks -Sliding scale initiated -Monitor for hypoglucemia -Hemoglobin A1c 6.8 #Hyperlipidemia -Resume home crestor 40 mg #Hypertension -Resume home anti-hypertension medications #Asthma #Dementia #Vertigo #Anxiety #Bipolar disorder #Depression -Resumed home medications for Anxiety/depression/bipolar disorder/dementia -Hold home meclizine -Hold home ventolin inhaler DVT ppx: Heparin 5000 units SQ every 12 hours Code status: No code F: None E: Replete as needed N: Heart healthy diet, with 1500 cc fluid restriction A: Ambulatory Anticipated discharge place: Home Anticipated discharge time: Pending clinical course Dictation was produced using [employer] dictation software. please excuse any grammatical, word or spelling errors. Tez Pandya MD PGY-1 IM I saw and evaluated the patient during the logan and critical portions of this encounter, and discussed the case in detail with the resident author of this note, I agree with the Assessment and Plan, and my changes, if any, are highlighted in blue. Objective - Vital Signs Vital signs: Vital Signs Temp 98.5 F 06/25/24 07:00 Pulse 87 06/25/24 07:00 Resp 16 06/25/24 07:00 BP 182/62 06/25/24 07:00 Pulse Ox 92 L 06/25/24 07:00 FiO2 Intake & Output 06/24/24 06/25/24 06/25/24 18:59 06:59 18:59 Intake Total 1080 120 Output Total 350 Balance -350 1080 120 Weight 83.007 kg 83.007 kg Intake: Oral 1080 120 Output: Post Void Residual 350 Other: # Voids 2 - Labs CBC & Chem 7: 06/25/24 03:12 06/25/24 03:12 Labs: Abnormal Lab Results - Last 24 Hours (Table) 06/24/24 06/24/24 06/24/24 Range/Units 12:53 15:22 18:34 RBC (4.10-5.20) 10*6/uL Hgb (12.0-15.0) g/dL Hct (37.2-46.3) % MPV (9.5-12.2) fL ABG pO2 52 L* (83-108) mmHg ABG HCO3 26 H (21-25) mmol/L ABG Total CO2 27 H (19-24) mmol/L ABG O2 Saturation 85.7 L (94-97) % Hemoglobin 8.6 L (11.4-16.0) gm/dL BUN (7-17) mg/dL Creatinine (0.52-1.04) mg/dL POC Glucose (mg/dL) 164 H (70-110) mg/dL Hemoglobin A1c (<=6.0) % Urine Protein 1+ H (Negative) Ur Leukocyte Esterase Small H (Negative) Urine WBC 7 H (0-5) /hpf Urine Mucus Rare H (None) /hpf 06/24/24 06/25/24 06/25/24 Range/Units 20:17 03:12 03:12 RBC 2.53 L (4.10-5.20) 10*6/uL Hgb 7.9 L (12.0-15.0) g/dL Hct 23.9 L (37.2-46.3) % MPV 9.2 L (9.5-12.2) fL ABG pO2 (83-108) mmHg ABG HCO3 (21-25) mmol/L ABG Total CO2 (19-24) mmol/L ABG O2 Saturation (94-97) % Hemoglobin (11.4-16.0) gm/dL BUN (7-17) mg/dL Creatinine (0.52-1.04) mg/dL POC Glucose (mg/dL) 153 H (70-110) mg/dL Hemoglobin A1c 6.8 H (<=6.0) % Urine Protein (Negative) Ur Leukocyte Esterase (Negative) Urine WBC (0-5) /hpf Urine Mucus (None) /hpf 06/25/24 06/25/24 Range/Units 03:12 11:31 RBC (4.10-5.20) 10*6/uL Hgb (12.0-15.0) g/dL Hct (37.2-46.3) % MPV (9.5-12.2) fL ABG pO2 (83-108) mmHg ABG HCO3 (21-25) mmol/L ABG Total CO2 (19-24) mmol/L ABG O2 Saturation (94-97) % Hemoglobin (11.4-16.0) gm/dL BUN 26 H (7-17) mg/dL Creatinine 1.23 H (0.52-1.04) mg/dL POC Glucose (mg/dL) 235 H (70-110) mg/dL Hemoglobin A1c (<=6.0) % Urine Protein (Negative) Ur Leukocyte Esterase (Negative) Urine WBC (0-5) /hpf Urine Mucus (None) /hpf
[2024-06-25] MEDS: LOSARTAN 50 MG TAB PO SCH (13:54)
[2024-06-25 16:19] VITALS: BMI 32.4
[2024-06-25 16:19] LABS: Glucose,Whole Blood 129 mg/dL (70-110)
[2024-06-25] MEDS: CYCLOBENZAPRINE 5 MG TAB PO PRN (17:21)
[2024-06-25 20:33] LABS: Glucose,Whole Blood 170 mg/dL (70-110)
[2024-06-26 04:29] LABS: African American GFR (CKD) 59 (>60 ml/min/1.73 sqM); Anion Gap 10 mmol/L; Blood Urea Nitrogen 20 mg/dL (7-17); Carbon Dioxide 26 mmol/L (22-30); Chloride 102 mmol/L (98-107); Glucose 104 mg/dL (74-99); Magnesium 1.6 mg/dL (1.6-2.3); Non-African American GFR(CKD) 52 (>60 ml/min/1.73 sqM); Sodium 138 mmol/L (137-145)
[2024-06-26 04:42] LABS: HCT 24.9 % (37.2-46.3); HGB 8.2 g/dL (12.0-15.0); MCH 30.8 pg (27.0-32.0); MCHC 32.9 g/dL (32.0-37.0); MCV 93.6 fL (80.0-97.0); Platelet Count 339 10*3/uL (140-440); RBC 2.66 10*6/uL (4.10-5.20); RDW 14.1 % (11.5-14.5)
[2024-06-26 06:12] LABS: Glucose,Whole Blood 113 mg/dL (70-110)
[2024-06-26] MEDS ORDERED: FUROSEMIDE 10 MG/ML 4 ML VIAL IV SCH (10:00)
[2024-06-26] MEDS: ALPRAZolam 0.5 MG TAB PO PRN (10:25)
[2024-06-26] MEDS: MAGNESIUM SULFATE-D5W PMX 1 GM in DEXTROSE/WATER 1 100ML.BAG IVPB SCH (11:13)
[2024-06-26 11:25] LABS: Glucose,Whole Blood 208 mg/dL (70-110)
--- NOTE | 2024-06-26 11:33 | P.PN ---
Subjective Progress Note Date: 06/26/24 74-year-old female with PMH of HFpEF (most recent echocardiogram 05/05/2024 showed EF 55 to 60%), CAD s/p stent placement, asthma, Alzheimer's dementia (sees Dr. Huntley), non-insulin dependent diabetes mellitus, hyperlipidemia, hypertension, vertigo and anxiety. Presents to the emergency room today comp laining of worsening shortness of breath. She has noted a weight gain of approximately 10 pounds over the last month. Additionally, she notes that she has not urinated this morning which is caused her more concern. She denies a cough, chest pain, palpitations, abdominal pain/pressure, nausea, vomiting, diarrhea. She does note that due to her history of anxiety she occasionally can feel short of breath secondary to that. Per the EMS's report she had been saturating in the 90%'s. 06/25 - She is seen and examined at bedside this morning, now on the fourth floor. States that she is feeling okay, and has no acute complaints this morning. Notes that she is able to lie closer to flat on her back without getting as short of breath as previously. However, does not know any improvement in her leg swelling. She does state that she is able to urinate without issue. 06/26 - She is seen and examined at bedside this morning. She has no acute complaints today, continues to utilize 1 L nasal cannula with saturations in the mid 90%'s. States that she is urinated 4+ times over the past day or so, including once this morning when seen at bedside. Further discussed the importance of monitoring I's and O's closely. Will increase Lasix to 40 mg IV every 12 hours beginning tonight, if continued symptoms of heart failure and minimal improvement in lower extremity edema. Repeat chest x-ray scheduled for tomorrow morning, to reassess. REVIEW OF SYSTEMS: Pertinent positives and negatives noted in HPI. Physical Exam: General: nontoxic, no distress, appears at stated age Derm: warm, dry, intact Head: atraumatic, normocephalic, symmetric Eyes: EOMI, anicteric sclera Mouth: no lip lesion, mucus membranes moist Cardiovascular: S1 S2 reg, no murmur, rubs, or gallops; JVD observable Lungs: CTA bilateral, no rales, no accessory muscle use Abdominal: soft, non-tender to palpataion, no appreciable organomegaly Extremities: no gross muscle atrophy, dry skin, 1+ pitting edema bilateral lower extremities, worse on the right than the left Neuro: Alert, Oriented, CNII-XII grossly intact, gait normal Psych: well appearing, appropriate affect Data Received Today: Labs: WBC 7.30, hemoglobin 8.2, hematocrit 24.9, platelet 339; sodium 138, potassium 4.0, BUN 20, creatinine 1.07, calcium 9.0, magnesium 1.6 Imagining: No new imaging today Assessment and plan 74-year-old female with PMH of HFpEF (most recent echocardiogram 05/05/2024 show ed EF 55 to 60%), CAD s/p stent placement, asthma, Alzheimer's dementia (sees Dr. Huntley), diabetes mellitus, hyperlipidemia, hypertension, vertigo and anxiety. Presents to the emergency room today complaining of worsening shortness of breath. Has been admitted to the internal medicine service for further evaluation. #Acute hypoxic respiratory failure, likely secondary to HFpEF exacerbation (most recent echocardiogram 05/05/2024 showed EF 55 to 60%) -Chest x-ray and CT chest independently read and interpreted -Wean supplemental oxygen as possible, maintaining SPO2 88-90% -Given recent echocardiogram, no need for repeat at this time -proBNP 491 -Received 20 mg IV Lasix this morning, will increase dose to 40 mg Lasix every 12 hours beginning evening of 06/26/24 -Monitor daily weights and strict I's and O's -Initiate a fluid restriction of 1500 cc -Procalcitonin ordered, currently pending #Urinary retention #Non-Oliguric DEE DEE in the setting of above - improving -Currently urinating without issue, will continue to monitor for signs of retention -Continue to monitor BMP -If worsening signs/symptoms of DEE DEE discontinue Cozaar 100 mg daily -Consider renal ultrasound if persistent worsening of kidney function #Chronic normocytic anemia -Extensive workup completed during previous visit within the last 6 months -Continue to monitor CBC closely -Continue more extensive workup or hematology consultation if hemoglobin continues to decrease with no signs of active bleeding -Transfuse for Hgb < 7 #Scattered pulmonary nodules measuring up to 7 mm -Noted incidentally on CT chest from 06/24/2024 -Recommend follow-up CT in 6/12 months #CAD s/p stenting -Resume home medications #Pzt-haadmic-eyxpwlrqx diabetes mellitus -Accucheks -Sliding scale initiated -Monitor for hypoglucemia -Hemoglobin A1c 6.8 #Hyperlipidemia -Resume home crestor 40 mg #Hypertension -Resume home anti-hypertension medications #Asthma #Dementia #Vertigo #Anxiety #Bipolar disorder #Depression -Resumed home medications for Anxiety/depression/bipolar disorder/dementia -Hold home meclizine -Hold home ventolin inhaler DVT ppx: Heparin 5000 units SQ every 12 hours Code status: No code F: None E: Replete as needed N: Heart healthy diet, with 1500 cc fluid restriction A: Ambulatory Anticipated discharge place: Home Anticipated discharge time: Pending clinical course Dictation was produced using [employer] dictation software. please excuse any grammatical, word or spelling errors. Tez Pandya MD PGY-1 IM I saw and evaluated the patient during the logan and critical portions of this encounter, and discussed the case in detail with the resident author of this note, I agree with the Assessment and Plan, and my changes, if any, are highlighted in blue. Obtain Pro-najma to rule out infectious cause of dyspnea. Continue IV Lasix for 1 more day. Repeat BMP and Mag in the AM while on Lasix IV (monitor renal function and electrolytes). Objective - Vital Signs Vital signs: Vital Signs Temp 98.6 F 06/26/24 00:49 Pulse 60 06/26/24 00:49 Resp 16 06/26/24 00:49 BP 144/56 06/26/24 00:49 Pulse Ox 93 L 06/26/24 00:49 FiO2 Intake & Output 06/25/24 06/26/24 06/26/24 18:59 06:59 18:59 Intake Total 120 Balance 120 Weight 83.007 kg 83.5 kg Intake: Oral 120 Other: # Voids 1 - Labs CBC & Chem 7: 06/26/24 04:25 06/26/24 03:28 Labs: Abnormal Lab Results - Last 24 Hours (Table) 06/25/24 06/25/24 06/25/24 Range/Units 03:12 11:31 16:19 RBC (4.10-5.20) 10*6/uL Hgb (12.0-15.0) g/dL Hct (37.2-46.3) % MPV (9.5-12.2) fL BUN (7-17) mg/dL Creatinine (0.52-1.04) mg/dL Glucose (74-99) mg/dL POC Glucose (mg/dL) 235 H 129 H (70-110) mg/dL Hemoglobin A1c 6.8 H (<=6.0) % 06/25/24 06/26/24 06/26/24 Range/Units 20:32 03:28 04:25 RBC 2.66 L (4.10-5.20) 10*6/uL Hgb 8.2 L (12.0-15.0) g/dL Hct 24.9 L (37.2-46.3) % MPV 9.0 L (9.5-12.2) fL BUN 20 H (7-17) mg/dL Creatinine 1.07 H (0.52-1.04) mg/dL Glucose 104 H (74-99) mg/dL POC Glucose (mg/dL) 170 H (70-110) mg/dL Hemoglobin A1c (<=6.0) % 06/26/24 Range/Units 06:11 RBC (4.10-5.20) 10*6/uL Hgb (12.0-15.0) g/dL Hct (37.2-46.3) % MPV (9.5-12.2) fL BUN (7-17) mg/dL Creatinine (0.52-1.04) mg/dL Glucose (74-99) mg/dL POC Glucose (mg/dL) 113 H (70-110) mg/dL Hemoglobin A1c (<=6.0) % Microbiology - Last 24 Hours (Table) 06/24/24 17:15 Blood Culture - Preliminary Blood
[2024-06-26 16:39] LABS: Glucose,Whole Blood 135 mg/dL (70-110)
[2024-06-26 20:46] LABS: Glucose,Whole Blood 183 mg/dL (70-110)
[2024-06-26] MEDS: FUROSEMIDE 10 MG/ML 4 ML VIAL IV SCH (21:58)
[2024-06-27 05:55] LABS: Glucose,Whole Blood 129 mg/dL (70-110)
[2024-06-27 06:34] LABS: HCT 26.4 % (37.2-46.3); HGB 8.5 g/dL (12.0-15.0); MCH 31.1 pg (27.0-32.0); MCHC 32.2 g/dL (32.0-37.0); MCV 96.7 fL (80.0-97.0); Mean Platelet Volume 9.2 fL (9.5-12.2); Platelet Count 383 10*3/uL (140-440); RBC 2.73 10*6/uL (4.10-5.20); RDW 13.8 % (11.5-14.5)
[2024-06-27 06:43] LABS: African American GFR (CKD) 41 (>60 ml/min/1.73 sqM); Anion Gap 7 mmol/L; Blood Urea Nitrogen 18 mg/dL (7-17); Calcium 9.5 mg/dL (8.4-10.2); Carbon Dioxide 30 mmol/L (22-30); Chloride 99 mmol/L (98-107); Glucose 104 mg/dL (74-99); Magnesium 1.8 mg/dL (1.6-2.3); Non-African American GFR(CKD) 36 (>60 ml/min/1.73 sqM); Potassium 4.1 mmol/L (3.5-5.1); Sodium 136 mmol/L (137-145)
--- NOTE | 2024-06-27 07:09 | XR ---
EXAMINATION TYPE: XR chest 1V portable DATE OF EXAM: 06/27/2024 CLINICAL INDICATION: Female, 74 years old with history of CHF, progress study. TECHNIQUE: Single AP portable upright view of the chest is obtained. COMPARISON: Chest CT and chest x-ray from 3 days earlier FINDINGS: Some chronic parenchymal changes bilaterally are again seen. Persistent cardiomegaly and l eft basilar increased opacity. Surgical changes of the cervical spine are present. There is vertebrop lasty at the T12 level redemonstrated IMPRESSION: Persistent cardiomegaly with left basilar acute infiltrate and/or atelectasis. No signifi cant change from most recent x-ray. [facility], , 06/27/2024 7:07 AM
[2024-06-27 11:43] LABS: Glucose,Whole Blood 157 mg/dL (70-110)
--- NOTE | 2024-06-27 12:49 | P.PN ---
Subjective Progress Note Date: 06/27/24 74-year-old female with PMH of HFpEF (most recent echocardiogram 05/05/2024 showed EF 55 to 60%), CAD s/p stent placement, asthma, Alzheimer's dementia (sees Dr. Huntley), non-insulin dependent diabetes mellitus, hyperlipidemia, hypertension, vertigo and anxiety. Presents to the emergency room today comp laining of worsening shortness of breath. She has noted a weight gain of approximately 10 pounds over the last month. Additionally, she notes that she has not urinated this morning which is caused her more concern. She denies a cough, chest pain, palpitations, abdominal pain/pressure, nausea, vomiting, diarrhea. She does note that due to her history of anxiety she occasionally can feel short of breath secondary to that. Per the EMS's report she had been saturating in the 90%'s. 06/25 - She is seen and examined at bedside this morning, now on the fourth floor. States that she is feeling okay, and has no acute complaints this morning. Notes that she is able to lie closer to flat on her back without getting as short of breath as previously. However, does not know any improvement in her leg swelling. She does state that she is able to urinate without issue. 06/26 - She is seen and examined at bedside this morning. She has no acute complaints today, continues to utilize 1 L nasal cannula with saturations in the mid 90%'s. States that she is urinated 4+ times over the past day or so, including once this morning when seen at bedside. Further discussed the importance of monitoring I's and O's closely. Will increase Lasix to 40 mg IV every 12 hours beginning tonight, if continued symptoms of heart failure and minimal improvement in lower extremity edema. Repeat chest x-ray scheduled for tomorrow morning, to reassess. 06/27 - She is seen and examined at bedside this morning, with no acute complaints overnight. She received her first increased dose of Lasix 40 mg IV last night and produced 1900 cc of urine overnight. She had an episode of having her O2 saturation drop to 88% when she got up to go to the bathroom, however she does not endorse any worsening shortness of breath at that time. Will continue to attempt to wean nasal cannula, and remove more fluid with continued diuresis. REVIEW OF SYSTEMS: Pertinent positives and negatives noted in HPI. Physical Exam: General: nontoxic, no distress, appears at stated age Derm: warm, dry, intact Head: atraumatic, normocephalic, symmetric Eyes: EOMI, anicteric sclera Mouth: no lip lesion, mucus membranes moist Cardiovascular: S1 S2 reg, no murmur, rubs, or gallops; JVD observable Lungs: CTA bilateral, no rales, no accessory muscle use Abdominal: soft, non-tender to palpataion, no appreciable organomegaly Extremities: no gross muscle atrophy, dry skin, 1+ pitting edema bilateral lower extremities, worse on the right than the left Neuro: Alert, Oriented, CNII-XII grossly intact, gait normal Psych: well appearing, appropriate affect Data Received Today: Labs: WBCs 8.3, hemoglobin 8.5, hematocrit 26.4, platelet 383; sodium 136, potassium 4.1, BUN 18, creatinine 1.44, calcium 9.5, magnesium 1.8 Imagining: Chest x-ray this morning independently read and interpreted showed persistent cardiomegaly with left basilar acute infiltrate and/or atelectasis, without significant change from most recent x-ray Assessment and plan 74-year-old female with PMH of HFpEF (most recent echocardiogram 05/05/2024 showed EF 55 to 60%), CAD s/p stent placement, asthma, Alzheimer's dementia (sees Dr. Huntley), diabetes mellitus, hyperlipidemia, hypertension, vertigo a nd anxiety. Presents to the emergency room today complaining of worsening shortness of breath. Has been admitted to the internal medicine service for further evaluation. #Acute hypoxic respiratory failure, likely secondary to HFpEF exacerbation (most recent echocardiogram 05/05/2024 showed EF 55 to 60%) -Chest x-ray and CT chest independently read and interpreted -Wean supplemental oxygen as possible, maintaining SPO2 88-90% -Given recent echocardiogram, no need for repeat at this time -proBNP 491 -Continuie with 40 mg Lasix every 12 hours -Monitor daily weights and strict I's and O's -Initiate a fluid restriction of 1500 cc -Procalcitonin 0.07 #Urinary retention #Non-Oliguric DEE DEE in the setting of above - improving -Currently urinating without issue, will continue to monitor for signs of retention -Continue to monitor BMP -If worsening signs/symptoms of DEE DEE discontinue Cozaar 100 mg daily -Consider renal ultrasound if persistent worsening of kidney function #Preliminarily positive blood culture, with low suspicion for bacteremia, likely contaminant -Initial blood culture pulmonary positive for staph capitis SS capitis -Repeat blood cultures ordered, currently pending at this time #Chronic normocytic anemia -Extensive workup completed during previous visit within the last 6 months -Continue to monitor CBC closely -Continue more extensive workup or hematology consultation if hemoglobin continues to decrease with no signs of active bleeding -Transfuse for Hgb < 7 #Scattered pulmonary nodules measuring up to 7 mm -Noted incidentally on CT chest from 06/24/2024 -Recommend follow-up CT in 08/29 months #CAD s/p stenting -Resume home medications #Kqx-crikyar-qqptrjbyd diabetes mellitus -Accucheks -Sliding scale initiated -Monitor for hypoglucemia -Hemoglobin A1c 6.8 #Hyperlipidemia -Resume home crestor 40 mg #Hypertension -Resume home anti-hypertension medications #Asthma #Dementia #Vertigo #Anxiety #Bipolar disorder #Depression -Resumed home medications for Anxiety/depression/bipolar disorder/dementia -Hold home meclizine -Hold home ventolin inhaler DVT ppx: Heparin 5000 units SQ every 12 hours Code status: No code F: None E: Replete as needed N: Heart healthy diet, with 1500 cc fluid restriction A: Ambulatory Anticipated discharge place: Home Anticipated discharge time: Likely tomorrow Dictation was produced using [employer] dictation software. please excuse any grammatical, word or spelling errors. Tez Pandya MD PGY-1 IM I have seen and evaluated the patient today. Discussed with the resident and agree with the residents finding and plan as documented in the resident's note. Changes highlighted in blue font. Objective - Vital Signs Vital signs: Vital Signs Temp 98.7 F 06/27/24 06:57 Pulse 72 06/27/24 06:57 Resp 16 06/27/24 06:57 BP 161/67 06/27/24 06:57 Pulse Ox 93 L 06/27/24 06:57 FiO2 Intake & Output 06/26/24 06/27/24 06/27/24 18:59 06:59 18:59 Intake Total 1200 480 420 Output Total 350 2000 Balance 850 -1520 420 Weight 88.5 kg Intake: Oral 1200 480 420 Output: Urine 350 1999 Other: Voiding Method Toilet # Voids 2 1 - Labs CBC & Chem 7: 06/27/24 05:28 06/27/24 05:28 Labs: Abnormal Lab Results - Last 24 Hours (Table) 06/26/24 06/26/24 06/26/24 Range/Units 11:23 16:37 20:45 RBC (4.10-5.20) 10*6/uL Hgb (12.0-15.0) g/dL Hct (37.2-46.3) % MPV (9.5-12.2) fL Sodium (137-145) mmol/L BUN (7-17) mg/dL Creatinine (0.52-1.04) mg/dL Glucose (74-99) mg/dL POC Glucose (mg/dL) 208 H 135 H 183 H (70-110) mg/dL 06/27/24 06/27/24 06/27/24 Range/Units 05:28 05:28 05:54 RBC 2.73 L (4.10-5.20) 10*6/uL Hgb 8.5 L (12.0-15.0) g/dL Hct 26.4 L (37.2-46.3) % MPV 9.2 L (9.5-12.2) fL Sodium 136 L (137-145) mmol/L BUN 18 H (7-17) mg/dL Creatinine 1.44 H (0.52-1.04) mg/dL Glucose 104 H (74-99) mg/dL POC Glucose (mg/dL) 129 H (70-110) mg/dL Microbiology - Last 24 Hours (Table) 06/24/24 17:15 Blood Culture Gram Stain - Preliminary Blood Blood Culture - Preliminary Molecular ID
[2024-06-27 16:49] LABS: Glucose,Whole Blood 146 mg/dL (70-110)
[2024-06-27 21:04] LABS: Glucose,Whole Blood 154 mg/dL (70-110)
[2024-06-28 06:26] LABS: Glucose,Whole Blood 123 mg/dL (70-110)
[2024-06-28 07:14] LABS: HCT 26.6 % (37.2-46.3); HGB 8.7 g/dL (12.0-15.0); MCH 30.9 pg (27.0-32.0); MCHC 32.7 g/dL (32.0-37.0); MCV 94.3 fL (80.0-97.0); Mean Platelet Volume 9.3 fL (9.5-12.2); Platelet Count 419 10*3/uL (140-440); RBC 2.82 10*6/uL (4.10-5.20); RDW 13.6 % (11.5-14.5); WBC 9.01 10*3/uL (4.50-10.00)
[2024-06-28 07:46] LABS: African American GFR (CKD) 37 (>60 ml/min/1.73 sqM); Anion Gap 6 mmol/L; Blood Urea Nitrogen 24 mg/dL (7-17); Calcium 9.1 mg/dL (8.4-10.2); Carbon Dioxide 32 mmol/L (22-30); Chloride 98 mmol/L (98-107); Glucose 108 mg/dL (74-99); Magnesium 1.9 mg/dL (1.6-2.3); Non-African American GFR(CKD) 32 (>60 ml/min/1.73 sqM); Sodium 136 mmol/L (137-145)
[2024-06-28 08:31] VITALS: BP 134/66; RESP 16; TEMP 98.3
--- NOTE | 2024-06-28 09:52 | CDI ---
Documentation Clarification Form Date: 06/28/2024 09:09:14 AM From: Kayleen Ramos Phone: [phone] Admit Date: 06/24/2024 03:39:00 PM Patient Name: Abiola Coombs Visit Number: [id number] Discharge Date: ATTENTION: The Clinical Documentation Specialists (CDI) and [facility] Coding Staff appreciate your assistance in clarifying documentation. Please respond to the clarification below the line at the bottom and electronically sign. The CDI & [facility] Coding staff will review the response and follow-up if needed. Please note: Queries are made part of the Legal Health Record. If you have any questions, please contact the author of this message via ITS. Dr. Sonu Martinez Acute Hypoxic Respiratory Failure is documented 06/24 06/27, [facility] and medicine notes which may lack sufficient clinical evidence/support in the medical record. Additional clarification is requested. Patient history/risk factors: 74 year old female presents to the ED with shortness of breath. According to EMS her lungs are clear and oxygenating high 90s. Medical history: Anxiety makes her feel short of breath, CAD with stenting, HLD, DM, Asthma, Bipolar and Dementia. 06/24 HP. Clinical Indicators: CXR, 06/24: Cardiomegaly with new posterior left basilar acute infiltrate and or atelectasis and tiny bilateral pleural effusions. CT Chest, 06/24: 1.Small left pleural effusion with left basilar reticular opacities which may represent atelectasis versus atypical pneumonia.Additional scattered mosaic attenuation throughout the lungs which can be seen with pulmonary edema versus atypical pneumonia ED Pulmonary evaluation, 06/24: Unlabored respirations. Good breath sounds bilaterally. HP Lung evaluation, 06/24: CTA bilateral, no rales, no accessory muscle use\ 06/24 09:16: RR 18, SpO2 93% ra 06/24 12:20: RR 19, SpO2 91% ra 06/24 14:24 RR 12, sPo2 93% 2l nc 06/24 18:30 RR14, SpO2 96% ra 06/24 19:37: RR 17, SpO2 94% 2Lnc Treatment: 2L nasal cannula , 06/24 Lasix iv x1, 06/24 Lasix iv x 1; 49 Lasix IV Q12H After work up and study, please clarify which diagnosis is most appropriate? [x ] Acute Respiratory Failure ruled out [ ] Acute Respiratory Failure is a valid diagnosis as evidenced by the following: [ ] Respiratory Insufficiency [ ] Unable to determine [ ] Other, please specify (Template Last Revised: March 2023) MTDD
[2024-06-28 11:50] LABS: Glucose,Whole Blood 182 mg/dL (70-110)
--- NOTE | 2024-06-28 11:52 | P.DS ---
Providers Date of admission: 06/24/24 15:39 Expected date of discharge: 06/28/24 Attending physician: Sonu Martinez Primary care physician: Ming Lacy Hospital Course: Discharge diagnoses; #Acute hypoxic respiratory failure, likely secondary to HFpEF exacerbation (most recent echocardiogram 05/05/2024 showed EF 55 to 60%) #Urinary retention #Non-Oliguric DEE DEE in the setting of above - improving #metabolic alkalosis #Preliminarily positive blood culture, with low suspicion for bacteremia, likely contaminant #Chronic normocytic anemia #Scattered pulmonary nodules measuring up to 7 mm #CAD s/p stenting #Nut-mnfbwyo-laocwohkh diabetes mellitus #Hyperlipidemia #Hypertension #Asthma #Dementia #Vertigo #Anxiety #Bipolar disorder #Depression Hospital course; 74-year-old female with PMH of HFpEF (most recent echocardiogram 05/05/2024 showed EF 55 to 60%), CAD s/p stent placement, asthma, Alzheimer's dementia (sees Dr. Huntley), non-insulin dependent diabetes mellitus, hyperlipidemia, hypertension, vertigo and anxiety. Presents to the emergency room today complaining of worsening shortness of breath. She has noted a weight gain of approximately 10 pounds over the last month. Additionally, she notes that she has not urinated this morning which is caused her more concern. Upon arriving at our facility she evaluation in the emergency department and she underwent to chest x-rays as well as a chest CT scan which all showed evidence of left-sided small pleural effusions. It was viewed as a likely acute on chronic exacerbation of her HFpEF, however the night of her arrival was noted to be in acute hypoxic respiratory failure as she was utilizing 1-2 L nasal cannula, which she does not do at home. She was given IV Lasix in the emergency department, where she received a total of 40 mg IV. She was started on 20 mg IV every 12 hours, which was then increased to 40 mg IV every 12 hours which allowed for adequate diuresis. Prescription to continue taking oral Lasix 40 mg once daily, as well as modification of her diabetes medications - discontinuing disown and decreasing her metformin to 1000 mg once daily. Discussed the importance of following up with her primary care physician within 1 week of discharge from the hospital. She is excited for discharge today, and is excited that she is feeling better. Physical Exam: General: nontoxic, no distress, appears at stated age Derm: warm, dry, intact Head: atraumatic, normocephalic, symmetric Eyes: EOMI, anicteric sclera Mouth: no lip lesion, mucus membranes moist Cardiovascular: S1 S2 reg, no murmur, rubs, or gallops Lungs: CTA bilateral, no rales, no accessory muscle use Abdominal: soft, non-tender to palpataion, no appreciable organomegaly Extremities: no gross muscle atrophy, dry skin, lower extremity pitting edema resolved Neuro: Alert, Oriented, CNII-XII grossly intact, gait normal Psych: well appearing, appropriate affect Dictation was produced using [employer] dictation software. please excuse any grammatical, word or spelling errors. Tez Pandya MD PGY-1 IM A total of 38 minutes of time were spent preparing this complex discharge summary. Patient was discharged on 06/28/2024 at 936. I have seen and evaluated the patient today. Discussed with the resident and agree with the residents finding and plan as documented in the resident's note. Changes highlighted in blue font. Patient Condition at Discharge: Fair Plan - Discharge Summary Discharge Rx Participant: No New Discharge Prescriptions: New Furosemide [Lasix] 40 mg PO DAILY #30 tablet Continue Ascorbic Acid [Vitamin C] 500 mg PO DAILY@0800 ALPRAZolam [Xanax] 0.5 mg PO DAILY PRN PRN Reason: Anxiety Memantine [Namenda] 10 mg PO HS@1999 Gabapentin [Neurontin] 300 mg PO BID@08,1999 Donepezil [Aricept] 10 mg PO HS@1999 lamoTRIgine 150 mg PO BID@0800,1999 Multivit/Folic Acid/Vit K1 [One-A-Day Women's 50 Plus Tab] 1 tab PO DAILY@0800 Cyanocobalamin (Vitamin B-12) [Vitamin B-12] 1,000 mcg PO DAILY@0800 Albuterol Sulfate [Ventolin HFA] 1 - 2 puff INHALATION RT-Q4H PRN PRN Reason: Shortness Of Breath Benztropine Mesylate 0.5 mg PO HS@2000 Carbidopa-Levodopa 25-250 mg [Sinemet 25-250 mg] 1 tab PO TID@0800,1400,1999 Docusate [Colace] 100 mg PO BID@0800,2000 PRN PRN Reason: Constipation Ferrous Sulfate [Iron (65 MG Elemental)] 325 mg PO HS@1999 Irbesartan [Avapro] 300 mg PO DAILY@1400 Melatonin 3 mg PO HS@1999 Atorvastatin [Lipitor] 80 mg PO HS@1999 polyethylene glycoL 3350 [Miralax] 17 gm PO DAILY Nystatin 100,000 Unit/gm Powd [Mycostatin Powder] 1 applic TOPICAL TID Meclizine [Antivert] 25 mg PO TID PRN PRN Reason: Vertigo ARIPiprazole [Abilify] 5 mg PO HS@1999 Sennosides [Senokot] 8.6 mg PO BID PRN PRN Reason: Constipation ARIPiprazole [Abilify] 2 mg PO HS@1999 buPROPion HCL [Wellbutrin XL] 300 mg PO DAILY@0800 Cholecalciferol [Vitamin D3 (25 Mcg = 1000 Iu)] 50 mcg PO HS@1999 Pantoprazole [Protonix] 40 mg PO DAILY@0700 Wheat Dextrin [Benefiber] 3 gm PO DAILY PRN PRN Reason: Constipation OLANZapine 5 mg PO HS@1999 Ibuprofen [Motrin] 600 mg PO Q8HR PRN PRN Reason: Pain EPINEPHrine (Auto Inject) [Epipen] 0.3 mg IM ONCE PRN PRN Reason: Anaphylaxis Cyclobenzaprine [Flexeril] 5 mg PO TID PRN PRN Reason: Muscle Spasm Biotin 1000mcg 1,000 mcg PO DAILY@1700 carvediloL [Coreg*] 25 mg PO BID@0800,1700 #60 tab Aspirin EC [Ecotrin Low Dose] 81 mg PO DAILY@0800 Clopidogrel [Plavix] 75 mg PO DAILY@0800 NIFEdipine XL [Procardia XL] 90 mg PO DAILY@0900 Changed metFORMIN HCL [Glucophage] 1,000 mg PO DAILY #0 Discontinued Pioglitazone [Actos] 30 mg PO DAILY@0800 Discharge Medication List ALPRAZolam [Xanax] 0.5 mg PO DAILY PRN 11/23/17 [History] Ascorbic Acid [Vitamin C] 500 mg PO DAILY@0800 11/23/17 [History] Cyanocobalamin (Vitamin B-12) [Vitamin B-12] 1,000 mcg PO DAILY@0800 11/23/17 [History] Donepezil [Aricept] 10 mg PO HS@199911/23/17 [History] Gabapentin [Neurontin] 300 mg PO BID@0800,199911/23/17 [History] Memantine [Namenda] 10 mg PO HS@199911/23/17 [History] Multivit/Folic Acid/Vit K1 [One-A-Day Women's 50 Plus Tab] 1 tab PO DAILY@0800 11/23/17 [History] lamoTRIgine 150 mg PO BID@0800,199911/23/17 [History] Albuterol Sulfate [Ventolin HFA] 1 - 2 puff INHALATION RT-Q4H PRN 06/16/21 [History] Benztropine Mesylate 0.5 mg PO HS@199906/16/21 [History] Carbidopa-Levodopa 25-250 mg [Sinemet 25-250 mg] 1 tab PO TID@0800,1399,199906/16/21 [History] Cholecalciferol [Vitamin D3 (25 Mcg = 1000 Iu)] 50 mcg PO HS@199906/16/21 [History] Docusate [Colace] 100 mg PO BID@799,1999 PRN 06/16/21 [History] Ferrous Sulfate [Iron (65 MG Elemental)] 325 mg PO HS@199906/16/21 [History] Irbesartan [Avapro] 300 mg PO DAILY@1400 06/16/21 [History] Melatonin 3 mg PO HS@199906/16/21 [History] buPROPion HCL [Wellbutrin XL] 300 mg PO DAILY@0800 06/16/21 [History] Atorvastatin [Lipitor] 80 mg PO HS@199909/10/23 [History] Pantoprazole [Protonix] 40 mg PO DAILY@0700 09/10/23 [History] ARIPiprazole [Abilify] 5 mg PO HS@199905/05/24 [History] Biotin 1000mcg 1,000 mcg PO DAILY@1700 05/05/24 [History] Cyclobenzaprine [Flexeril] 5 mg PO TID PRN 05/05/24 [History] EPINEPHrine (Auto Inject) [Epipen] 0.3 mg IM ONCE PRN 05/05/24 [History] Ibuprofen [Motrin] 600 mg PO Q8HR PRN 05/05/24 [History] Meclizine [Antivert] 25 mg PO TID PRN 05/05/24 [History] Nystatin 100,000 Unit/gm Powd [Mycostatin Powder] 1 applic TOPICAL TID 05/05/24 [History] OLANZapine 5 mg PO HS@199905/05/24 [History] Sennosides [Senokot] 8.6 mg PO BID PRN 05/05/24 [History] Wheat Dextrin [Benefiber] 3 gm PO DAILY PRN 05/05/24 [History] polyethylene glycoL 3350 [Miralax] 17 gm PO DAILY 05/05/24 [History] carvediloL [Coreg*] 25 mg PO BID@0800,1700 #60 tab 05/09/24 [Rx] ARIPiprazole [Abilify] 2 mg PO HS@199906/24/24 [History] Aspirin EC [Ecotrin Low Dose] 81 mg PO DAILY@0800 06/24/24 [History] Clopidogrel [Plavix] 75 mg PO DAILY@0800 06/24/24 [History] NIFEdipine XL [Procardia XL] 90 mg PO DAILY@0906/24/24 [History] Furosemide [Lasix] 40 mg PO DAILY #30 tablet 06/28/24 [Rx] metFORMIN HCL [Glucophage] 1,000 mg PO DAILY #0 06/28/24 [Rx] Follow up Appointment(s)/Referral(s): Ming Lacy DO [Primary Care Provider] - 07/03/24 1:00 pm [facility] [[facility]STAFF] - As Needed Ambulatory/Diagnostic Orders: Basic Metabolic Panel [LAB.AMB] Time Frame: 3 Days, Location: None Selected Patient Instructions/Handouts: Heart Failure (GEN) Activity/Diet/Wound Care/Special Instructions: Please be sure to follow up with your primary care physician within 1 week following discharge. Note the following medication changes: NEW: Lasix 40 mg daily. CHANGE: Metformin 1,000 daily. DISCONTINUE: Actos. Please get blood work done at a lab in 3 days to evaluate/monitor kidney function and electrolytes. Activity: As tolerated. Take breaks as needed. Diet: Heart healthy and carb consistent diet. Avoid salts, or foods with hidden salts such as canned or boxed foods and frozen dinners. Extra salt makes your heart work harder and traps the fluid in your body for longer. Special Instructions: Weigh yourself every morning after you urinate. If you gain 3 pounds overnight or more than 5 pounds in one week, call your primary physician and drum puller for guidance on your medications or they may want to see you in their office. Keep a daily log of your weights and be sure to bring with you at follow up visits with your PCP and drum puller. Take all of your medications as directed, especially your water pills. NEVER skip a dose. And remember to keep all of your doctor's appointments and follow- up as needed. Elevate your legs when you are not up moving around to help with circulation and prevent swelling. Compression stockings are also a great way to improve lower extremity circulation and prevent/improve lower extremity edema. Call your primary care provider and drum puller if you notice any extra swelling in your legs, ankles, feet or abdomen, if you have a new dry cough, if your shortness of breath worsens with activity or at rest, or if you feel more fatigued. Thank you for allowing us to participate in your care, it was truly a pleasure having you for our patient!!! Discharge Disposition: HOME WITH HOME HEALTH SERVICES
[2024-06-28 13:07] VITALS: PULSE 68
== END 2024-06-28 14:30 | disposition home health service (06) | DRG 291 ==
LOC: EC 09:11 → 6NMEDSUR 15:38 → OBSVTOIN 15:39 → 6NMEDSUR 16:36 → 4SSUR 18:18
PROVIDERS: ADMIT Student in an Organized Health Care Education/Training Program; ATTEND Student in an Organized Health Care Education/Training Program
DX: I11.0 Hypertensive heart disease with heart failure (principal); I50.33 Acute on chronic diastolic (congestive) heart failure; R34 Anuria and oliguria; E87.3 Alkalosis; N17.9 Acute kidney failure, unspecified; F02.83 Dementia in other diseases classified elsewhere, unspecified severity, with mood disturbance; E11.9 Type 2 diabetes mellitus without complications; D64.9 Anemia, unspecified; E78.5 Hyperlipidemia, unspecified; F31.9 Bipolar disorder, unspecified; J45.909 Unspecified asthma, uncomplicated; F02.84 Dementia in other diseases classified elsewhere, unspecified severity, with anxiety; G30.9 Alzheimer's disease, unspecified; Z11.52 Encounter for screening for COVID-19; R33.8 Other retention of urine; R42 Dizziness and giddiness; I25.10 Atherosclerotic heart disease of native coronary artery without angina pectoris; Z95.5 Presence of coronary angioplasty implant and graft; Z79.84 Long term (current) use of oral hypoglycemic drugs; Z79.02 Long term (current) use of antithrombotics/antiplatelets; Z79.82 Long term (current) use of aspirin; Z79.899 Other long term (current) drug therapy; Z90.710 Acquired absence of both cervix and uterus; Z82.49 Family history of ischemic heart disease and other diseases of the circulatory system
CPT/HCPCS: 36415; 36600; 51798; 71045; 71046; 71250; 80048; 80053; 81001; 82805; 83036; 83605; 83735; 83880; 84145; 85025; 85027; 87040; 87077; 87186; 87636; 93005; 96365; 96375; 96376; 99285

== ENCOUNTER 2024-07-18 10:43 | Emergency (ER) | payer MEDICARE ==
[2024-07-18 10:50] VITALS: RESP 18
--- NOTE | 2024-07-18 10:57 | ED ---
General Adult HPI - General Chief complaint: Fall Stated complaint: fall on thinners Time Seen by Provider: 07/18/24 10:51 Source: patient, RN notes reviewed Mode of arrival: wheelchair Limitations: no limitations - History of Present Illness Initial comments: Patient is a 74-year-old female present to the emergency department with fall. Patient fell 1 yesterday and again this morning. Patient did strike her head today. Patient is on Plavix. Patient has mild headache. No neck or back pain. No chest pain or dyspnea. No weakness or confusion. Patient does have history of Parkinson's with abnormal gait. Patient also has been dealing with flulike symptoms for 6 days. - Related Data Home Medications Medication Instructions Recorded Confirmed ALPRAZolam [Xanax] 0.5 mg PO DAILY PRN 11/23/17 06/24/24 Ascorbic Acid [Vitamin C] 500 mg PO DAILY@0800 11/23/17 06/24/24 Cyanocobalamin (Vitamin B-12) 1,000 mcg PO DAILY@0800 11/23/17 06/24/24 [Vitamin B-12] Donepezil [Aricept] 10 mg PO HS@199911/23/17 06/24/24 Gabapentin [Neurontin] 300 mg PO BID@0800,199911/23/17 06/24/24 Memantine [Namenda] 10 mg PO HS@199911/23/17 06/24/24 Multivit/Folic Acid/Vit K1 1 tab PO DAILY@0800 11/23/17 06/24/24 [One-A-Day Women's 50 Plus Tab] lamoTRIgine 150 mg PO BID@0800,199911/23/17 06/24/24 Albuterol Sulfate [Ventolin HFA] 1 - 2 puff INHALATION RT-Q4H PRN 06/16/21 06/24/24 Benztropine Mesylate 0.5 mg PO HS@199906/16/21 06/24/24 Carbidopa-Levodopa 25-250 mg 1 tab PO TID@0800,1399,199906/16/21 06/24/24 [Sinemet 25-250 mg] Cholecalciferol [Vitamin D3 (25 50 mcg PO HS@199906/16/21 06/24/24 Mcg = 1000 Iu)] Docusate [Colace] 100 mg PO BID@0800,2000 PRN 06/16/21 06/24/24 Ferrous Sulfate [Iron (65 MG 325 mg PO HS@199906/16/21 06/24/24 Elemental)] Irbesartan [Avapro] 300 mg PO DAILY@1400 06/16/21 06/24/24 Melatonin 3 mg PO HS@199906/16/21 06/24/24 buPROPion HCL [Wellbutrin XL] 300 mg PO DAILY@79906/16/21 06/24/24 Atorvastatin [Lipitor] 80 mg PO HS@199909/10/23 06/24/24 Pantoprazole [Protonix] 40 mg PO DAILY@69909/10/23 06/24/24 ARIPiprazole [Abilify] 5 mg PO HS@199905/05/24 06/24/24 Biotin 1000mcg 1,000 mcg PO DAILY@169905/05/24 06/24/24 Cyclobenzaprine [Flexeril] 5 mg PO TID PRN 05/05/24 06/24/24 EPINEPHrine (Auto Inject) [Epipen] 0.3 mg IM ONCE PRN 05/05/24 06/24/24 Ibuprofen [Motrin] 600 mg PO Q8HR PRN 05/05/24 06/24/24 Meclizine [Antivert] 25 mg PO TID PRN 05/05/24 06/24/24 Nystatin 100,000 Unit/gm Powd 1 applic TOPICAL TID 05/05/24 06/24/24 [Mycostatin Powder] OLANZapine 5 mg PO HS@199905/05/24 06/24/24 Sennosides [Senokot] 8.6 mg PO BID PRN 05/05/24 06/24/24 Wheat Dextrin [Benefiber] 3 gm PO DAILY PRN 05/05/24 06/24/24 polyethylene glycoL 3350 [Miralax] 17 gm PO DAILY 05/05/24 06/24/24 ARIPiprazole [Abilify] 2 mg PO HS@199906/24/24 06/24/24 Aspirin EC [Ecotrin Low Dose] 81 mg PO DAILY@79906/24/24 06/24/24 Clopidogrel [Plavix] 75 mg PO DAILY@79906/24/24 06/24/24 NIFEdipine XL [Procardia XL] 90 mg PO DAILY@0900 06/24/24 06/24/24 Previous Rx's Medication Instructions Recorded carvediloL [Coreg*] 25 mg PO BID@0800,1700 #60 tab 05/09/24 Furosemide [Lasix] 40 mg PO DAILY #30 tablet 06/28/24 metFORMIN HCL [Glucophage] 1,000 mg PO DAILY #0 06/28/24 Allergies Allergy/AdvReac Type Severity Reaction Status Date / Time aspartame Allergy Unknown Verified 07/18/24 10:50 clavulanic acid Allergy Unknown Verified 07/18/24 10:50 codeine Allergy Itching Verified 07/18/24 10:50 Penicillins Allergy Unknown Verified 07/18/24 10:50 phenylalanine Allergy Unknown Verified 07/18/24 10:50 saccharin Allergy Unknown Verified 07/18/24 10:50 Sulfa (Sulfonamide Allergy Rash/Hives Verified 07/18/24 10:50 Antibiotics) tree nut [Nut] Allergy Anaphylaxis Verified 07/18/24 10:50 Review of Systems ROS Statement: Those systems with pertinent positive or pertinent negative responses have been documented in the HPI. ROS Other: All systems not noted in ROS Statement are negative. Constitutional: Denies: fever Eyes: Denies: eye pain ENT: Reports: congestion. Denies: ear pain Cardiovascular: Denies: chest pain Gastrointestinal: Denies: abdominal pain Musculoskeletal: Denies: back pain Neurological: Reports: as per HPI. Denies: weakness, confusion Past Medical History Past Medical History: Asthma, Dementia, Diabetes Mellitus, Hyperlipidemia, Hypertension, Pneumonia, Syncope Additional Past Medical History / Comment(s): Chronic vertigo if pt lies on her sides, NIDDM type II, neuropathy bilateral hands and occasionally in feet, "preparkinsonism", tremors, cardiac murmur, pancreatitis, R shoulder discomfort since injury 2 weeks ago, anemia, rare UTI, constipation. 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 Past Anesthesia/Blood Transfusion Reactions: No Reported Reaction Past Psychological History: Anxiety, Bipolar, Depression Smoking Status: Never smoker Past Alcohol Use History: Rare Past Drug Use History: None Reported - Past Family History Mother History Unknown: Yes Family Medical History: Coronary Artery Disease (CAD), Eye Disorder Additional Family Medical History / Comment(s): Mother of heart problems. She had macular degeneration Father Family Medical History: Diabetes Mellitus Additional Family Medical History / Comment(s): Father of diabetic complications. General Exam Limitations: no limitations General appearance: alert, in no apparent distress Head exam: Present: atraumatic Eye exam: Present: normal appearance, PERRL, EOMI Neck exam: Present: normal inspection. Absent: tenderness, meningismus Respiratory exam: Present: normal lung sounds bilaterally Cardiovascular Exam: Present: regular rate, normal rhythm GI/Abdominal exam: Present: soft. Absent: tenderness Extremities exam: Present: normal inspection, full ROM. Absent: tenderness Neurological exam: Present: alert, oriented X3, CN II-XII intact. Absent: motor sensory deficit Expanded Neurological exam: Present: protecting the airway Patient oriented to: Present: person, place, time Speech: Present: fluid speech Cranial nerves: EOM's Intact: Normal, Facial Sensation: Normal Sensory exam: Upper Extremity Light Touch: Normal, Lower Extremity Light Touch: Normal Motor strength exam: RUE: 5, LUE: 5, RLE: 5, LLE: 5 Eye Response: (4) open spontaneously Motor Response: (6) obeys commands Verbal Response: (5) oriented Psychiatric exam: Present: normal affect, normal mood Skin exam: Present: normal color Course Vital Signs 07/18/24 10:45 Temperature 97.8 F Pulse Rate 58 L Respiratory 18 Rate Blood Pressure 148/71 O2 Sat by Pulse 95 Oximetry Medical Decision Making - Medical Decision Making Was pt. sent in by a medical professional or institution (, PA, RACE RELATIONS ADVISER, urgent care, hospital, or fpc...) When possible be specific @ -No Did you speak to anyone other than the patient for history (EMS, parent, family, police, friend...)? What history was obtained from this source @ -No Did you review nursing and triage notes (agree or disagree)? Why? @ -I reviewed and agree with nursing and triage notes Were old charts reviewed (outside hosp., previous admission, EMS record, old EKG, old radiological studies, urgent care reports/EKG's, fpc records)? Report findings @ -No old charts were reviewed Differential Diagnosis (chest pain, altered mental status, abdominal pain women, abdominal pain men, vaginal bleeding, weakness, fever, dyspnea, syncope, headache, dizziness, GI bleed, back pain, seizure, CVA, palpatations, mental health, musculoskeletal)? @ -Differential Headache: Migraine, tension, cluster, carbon monoxide, central venous thrombosis, pension karma temporal arteritis, acute closure glaucoma, intercranial hemorrhage, mastoiditis, sinusitis, head injury, this is not meant to be an all-inclusive list. EKG interpreted by me (3pts min.). @ -As above X-rays interpreted by me (1pt min.). @ -None done CT interpreted by me (1pt min.). @ -CT brain without acute intracranial abnormality, chronic changes U/S interpreted by me (1pt. min.). @ -None done What testing was considered but not performed or refused? (CT, X-rays, U/S, labs)? Why? @ -None What meds were considered but not given or refused? Why? @ -None Did you discuss the management of the patient with other professionals (professionals i.e. , PA, RACE RELATIONS ADVISER, lab, RT, psych nurse, social science instructor, clinical documentation improvement specialist, teacher, special skills officer, foster care case manager)? Give summary @ -No Was smoking cessation discussed for >3mins.? @ -No Was critical care preformed (if so, how long)? @ -No Were there social determinants of health that impacted care today? How? (Homelessness, low income, unemployed, alcoholism, drug addiction, transportation, low edu. Level, literacy, decrease access to med. care, [place] [facility], rehab)? @ -No Was there de-escalation of care discussed even if they declined (Discuss DNR or withdrawal of care, Hospice)? DNR status @ -No What co-morbidities impacted this encounter? (DM, HTN, Smoking, COPD, CAD, Cancer, CVA, ARF, Chemo, Hep., AIDS, mental health diagnosis, sleep apnea, morbid obesity)? @ -None Was patient admitted / discharged? Hospital course, mention meds given and route, prescriptions, significant lab abnormalities, going to OR and other pertinent info. @ -Patient presents with fall with head injury on Plavix. CT scan without evidence of traumatic injury or bleeding. Patient with discharge and recommend follow-up primary care physician. Patient reevaluated and updated. Undiagnosed new problem with uncertain prognosis? @ -No Drug Therapy requiring intensive monitoring for toxicity (Heparin, Nitro, Insulin, Cardizem)? @ -No Were any procedures done? @ -No Diagnosis/symptom? @ -Fall, head injury Acute, or Chronic, or Acute on Chronic? @ -Acute, acute Uncomplicated (without systemic symptoms) or Complicated (systemic symptoms)? @ -Default Side effects of treatment? @ -No Exacerbation, Progression, or Severe Exacerbation? @ -No Poses a threat to life or bodily function? How? (Chest pain, [place], [place], pneumonia, PE, COPD, DKA, ARF, appy, cholecystitis, CVA, Diverticulitis, Homicidal, Suicidal, threat to staff... and all critical care pts) @ -No Disposition Clinical Impression: Fall, Head injury Disposition: HOME SELF-CARE Condition: Stable Instructions (If sedation given, give patient instructions): Fall Prevention for Older Adults (ED), Head Injury (ED) Additional Instructions: Please do follow-up with your primary care physician in the next couple of days for recheck. Return for increased weakness, pain, confusion, worsening or changing symptoms or any other concerns. Recommend holding Plavix 24 hours. Is patient prescribed a controlled substance at d/c from ED?: No Referrals: Ming Lacy DO [Primary Care Provider] - 1-2 days Time of Disposition: 11:44
--- NOTE | 2024-07-18 11:30 | CT ---
EXAMINATION TYPE: CT brain wo con DATE OF EXAM: 07/18/2024 11:18 AM COMPARISON: 05/04/2024 CLINICAL INDICATION: Female, 74 years old with history of fall, Fall, hx stroke 4 weeks ago code coag , TECHNIQUE: Examination was done in axial plane without intravenous contrast. Coronal and sagittal r econstructions performed. CT DLP: 1170.4 mGycm, Automated exposure control for dose reduction was used. FINDINGS: Redemonstrated prominent CSF space anterior aspect left middle cranial fossa measuring 3.7 cm suggest ing an arachnoid cyst. Redemonstrated benign basal ganglionic calcifications on both sides, left greater than right. Focal hypodensity left basal ganglia measuring 9 mm nodular CSF density suggesting progression to now chronic lacunar infarct. Mild volume loss overlying the bilateral cerebral convexities. Atherosclerotic calcifications bilater al carotid siphons. There is no evidence of acute intracranial hemorrhage, acute ischemic changes, or extra-axial fluid collection. There is no effacement of cerebral sulci or basal subarachnoid cisterns. There is no hy drocephalus. There is no midline shift. Acosta-white matter distinction is preserved. Moderate mucosal thickening maxillary sinuses. Mastoid air cells well pneumatized. Rightward nasal se ptal deviation. IMPRESSION: Appearance suggests progression to a now chronic left basal ganglionic lacunar infarct compared to . No acute intracranial abnormality seen. Stable 3.7 cm arachnoid cyst of the left middle cranial fossa. Stable benign basal ganglionic calcifi cations, left greater than right. [facility], , 07/18/2024 11:27 AM
[2024-07-18 12:42] VITALS: BP 134/69; PULSE 61; TEMP 98.2
== END 2024-07-18 13:12 | disposition home or self-care (01) ==
LOC: EC 10:43
DX: S09.90XA Unspecified injury of head, initial encounter (principal); Z88.1 Allergy status to other antibiotic agents; Z88.5 Allergy status to narcotic agent; Z88.0 Allergy status to penicillin; Z88.8 Allergy status to other drugs, medicaments and biological substances; Z88.2 Allergy status to sulfonamides; Z91.018 Allergy to other foods; Z79.02 Long term (current) use of antithrombotics/antiplatelets; W18.30XA Fall on same level, unspecified, initial encounter
CPT/HCPCS: 70450; 99283

== ENCOUNTER → 2024-08-06 | Outpatient (CLI) | payer MEDICARE ==
--- NOTE | 2024-08-06 13:14 | XR ---
EXAMINATION TYPE: XR chest 2V DATE OF EXAM: 08/06/2024 CLINICAL INDICATION: Female, 74 years old with history of RIB PAIN R SIDE R07.81, TECHNIQUE: Frontal and lateral views of the chest are obtained. COMPARISON: Chest x-ray June 27, 2024 FINDINGS: There is some chronic parenchymal changes bilaterally without suspicious focal air space o pacity, pleural effusion, or pneumothorax seen. The cardiac silhouette size is upper limits of christian l. Surgical changes lower cervical spine is redemonstrated. Vertebroplasty near the thoracolumbar corey ction again seen. IMPRESSION: Chronic changes without acute pulmonary process. [facility], , 08/06/2024 1:12 PM
== END | disposition home or self-care (01) ==
LOC: RADXRMAIN 12:38
PROVIDERS: ATTEND Internal Medicine
DX: R07.81 Pleurodynia (principal)
CPT/HCPCS: 71046

== ENCOUNTER 2024-10-07 16:50 | Emergency (ER) | payer MEDICARE ==
--- NOTE | 2024-10-07 17:15 | ED ---
Fall HPI - General Chief Complaint: Fall Stated Complaint: Fall on thinners/Head injury Time Seen by Provider: 10/07/24 17:11 Source: patient, RN notes reviewed Mode of arrival: ambulatory - History of Present Illness Initial Comments: 74-year-old female presenting to the emergency room with family after a fall that occurred this morning. Patient reports that she was getting out of bed when her feet got out from underneath of her falling onto the floor face first with her glasses on. Patient denies loss of consciousness at the time of the injury. Patient is currently denying headache, neck pain, visual disturbances, neurological deficits. Patient is complaining of pain to the left hand. Patient is on Plavix. - Related Data Home Medications Medication Instructions Recorded Confirmed ALPRAZolam [Xanax] 0.5 mg PO DAILY PRN 11/23/17 10/07/24 Ascorbic Acid [Vitamin C] 500 mg PO DAILY@0800 11/23/17 10/07/24 Cyanocobalamin (Vitamin B-12) 1,000 mcg PO DAILY@0800 11/23/17 10/07/24 [Vitamin B-12] Donepezil [Aricept] 10 mg PO HS@199911/23/17 10/07/24 Gabapentin [Neurontin] 300 mg PO BID@0800,199911/23/17 10/07/24 Memantine [Namenda] 10 mg PO HS@199911/23/17 10/07/24 Multivit/Folic Acid/Vit K1 1 tab PO DAILY@0800 11/23/17 10/07/24 [One-A-Day Women's 50 Plus Tab] lamoTRIgine 150 mg PO BID@0800,199911/23/17 10/07/24 Albuterol Sulfate [Ventolin HFA] 1 - 2 puff INHALATION RT-Q4H PRN 06/16/21 10/07/24 Benztropine Mesylate 0.5 mg PO HS@199906/16/21 10/07/24 Carbidopa-Levodopa 25-250 mg 1 tab PO TID@0800,1400,199906/16/21 10/07/24 [Sinemet 25-250 mg] Cholecalciferol [Vitamin D3 (25 50 mcg PO HS@199906/16/21 10/07/24 Mcg = 1000 Iu)] Docusate [Colace] 100 mg PO BID PRN 06/16/21 10/07/24 Ferrous Sulfate [Iron (65 MG 325 mg PO HS@199906/16/21 10/07/24 Elemental)] Melatonin 3 mg PO HS@199906/16/21 10/07/24 buPROPion HCL [Wellbutrin XL] 300 mg PO DAILY@79906/16/21 10/07/24 Atorvastatin [Lipitor] 80 mg PO HS@199909/10/23 10/07/24 Pantoprazole [Protonix] 40 mg PO DAILY@69909/10/23 10/07/24 ARIPiprazole [Abilify] 5 mg PO HS@199905/05/24 10/07/24 Biotin 1000mcg 1,000 mcg PO DAILY@169905/05/24 10/07/24 Cyclobenzaprine [Flexeril] 5 mg PO TID PRN 05/05/24 10/07/24 EPINEPHrine (Auto Inject) [Epipen] 0.3 mg IM ONCE PRN 05/05/24 10/07/24 Ibuprofen [Motrin] 600 mg PO Q8HR PRN 05/05/24 10/07/24 Nystatin 100,000 Unit/gm Powd 1 applic TOPICAL TID 05/05/24 10/07/24 [Mycostatin Powder] OLANZapine 5 mg PO HS@199905/05/24 10/07/24 Sennosides [Senokot] 8.6 mg PO BID PRN 05/05/24 10/07/24 Wheat Dextrin [Benefiber] 3 gm PO BID PRN 05/05/24 10/07/24 ARIPiprazole [Abilify] 2 mg PO HS@199906/24/24 10/07/24 Aspirin EC [Ecotrin Low Dose] 81 mg PO DAILY@79906/24/24 10/07/24 Clopidogrel [Plavix] 75 mg PO DAILY@79906/24/24 10/07/24 NIFEdipine XL [Procardia XL] 90 mg PO DAILY@79906/24/24 10/07/24 Furosemide [Lasix] 40 mg PO DAILY@79910/07/24 10/07/24 Irbesartan 150 mg PO DAILY@1400 10/07/24 10/07/24 Meclizine [Antivert] 12.5 mg PO TID PRN 10/07/24 10/07/24 carvediloL [Coreg] 25 mg PO BID@0800,1700 10/07/24 10/07/24 metFORMIN HCL [Glucophage] 1,000 mg PO DAILY@0800 10/07/24 10/07/24 Allergies Allergy/AdvReac Type Severity Reaction Status Date / Time aspartame Allergy Unknown Verified 10/07/24 18:24 clavulanic acid Allergy Unknown Verified 10/07/24 18:24 codeine Allergy Itching Verified 10/07/24 18:24 Penicillins Allergy Unknown Verified 10/07/24 18:24 phenylalanine Allergy Unknown Verified 10/07/24 18:24 saccharin Allergy Unknown Verified 10/07/24 18:24 Sulfa (Sulfonamide Allergy Rash/Hives Verified 10/07/24 18:24 Antibiotics) tree nut [Nut] Allergy Anaphylaxis Verified 10/07/24 18:24 Review of Systems ROS Statement: Those systems with pertinent positive or pertinent negative responses have been documented in the HPI. ROS Other: All systems not noted in ROS Statement are negative. Past Medical History Past Medical History: Asthma, Dementia, Diabetes Mellitus, Hyperlipidemia, Hypertension, Pneumonia, Syncope Additional Past Medical History / Comment(s): Chronic vertigo if pt lies on her sides, NIDDM type II, neuropathy bilateral hands and occasionally in feet, "preparkinsonism", tremors, cardiac murmur, pancreatitis, R shoulder discomfort since injury 2 weeks ago, anemia, rare UTI, constipation. 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 Past Anesthesia/Blood Transfusion Reactions: No Reported Reaction Past Psychological History: Anxiety, Bipolar, Depression Smoking Status: Never smoker Past Alcohol Use History: Rare Past Drug Use History: None Reported - Past Family History Mother History Unknown: Yes Family Medical History: Coronary Artery Disease (CAD), Eye Disorder Additional Family Medical History / Comment(s): Mother of heart problems. She had macular degeneration Father Family Medical History: Diabetes Mellitus Additional Family Medical History / Comment(s): Father of diabetic complications. General Exam Limitations: no limitations Head exam: Present: atraumatic, normocephalic, normal inspection Eye exam: Present: normal appearance, PERRL, EOMI. Absent: scleral icterus, conjunctival injection, periorbital swelling ENT exam: Present: other (anterior nasal bridge of nose tenderness with abrasion, no laceration) Neck exam: Present: normal inspection. Absent: tenderness, meningismus, lymphadenopathy Respiratory exam: Present: normal lung sounds bilaterally. Absent: respiratory distress, wheezes, rales, rhonchi, stridor Cardiovascular Exam: Present: regular rate, normal rhythm, normal heart sounds. Absent: systolic murmur, diastolic murmur, rubs, gallop, clicks GI/Abdominal exam: Present: soft, normal bowel sounds. Absent: distended, tenderness, guarding, rebound, rigid Right Hand Wrist exam: Present: full ROM, tenderness, swelling, ecchymosis. Absent: deformity Neuro motor exam: Present: wrist extension intact, thumb opposition intact, thumb IP flexion intact, thumb adduction intact Vascular: Present: normal capillary refill. Absent: vascular compromise Back exam: Present: normal inspection Neurological exam: Present: alert, oriented X3, CN II-XII intact Course Vital Signs 10/07/24 10/07/24 17:03 19:54 Temperature 98.2 F 98 F Pulse Rate 52 L 53 L Respiratory 18 17 Rate Blood Pressure 128/71 157/65 O2 Sat by Pulse 98 98 Oximetry Procedures - Orthopedic Splinting/Casting Injury #1 Side: right Upper Extremity Injury Location: hand Upper Extremity Immobilizer: ulnar gutter, Tyrell wrap, synthetic pre-padded splint Medical Decision Making - Medical Decision Making Was pt. sent in by a medical professional or institution (, PA, SIGHTER, urgent care, hospital, or long-term...) When possible be specific @ -No Did you speak to anyone other than the patient for history (EMS, parent, family, police, friend...)? What history was obtained from this source @ -No Did you review nursing and triage notes (agree or disagree)? Why? @ -I reviewed and agree with nursing and triage notes Were old charts reviewed (outside hosp., previous admission, EMS record, old EKG, old radiological studies, urgent care reports/EKG's, long-term records)? Report findings @ -No old charts were reviewed Differential Diagnosis (chest pain, altered mental status, abdominal pain women, abdominal pain men, vaginal bleeding, weakness, fever, dyspnea, syncope, headache, dizziness, GI bleed, back pain, seizure, CVA, palpatations, mental health, musculoskeletal)? @ -hand fracture, hand sprain, facial bone fracture, inctracranial hemorrhage, concussion, this list is not all inclusive EKG interpreted by me (3pts min.). @ -none X-rays interpreted by me (1pt min.). @ -X-ray of the right hand reveals an acute minimally displaced oblique fracture of the proximal shaft of the fourth metacarpal. CT interpreted by me (1pt min.). @ -CT of the brain and C-spine without contrast and facial bones reveals no acute intracranial process with redemonstration of a left middle cranial fossa arachnoid cyst with no cervical spine fracture with no acute facial bone fracture. U/S interpreted by me (1pt. min.). @ -None done What testing was considered but not performed or refused? (CT, X-rays, U/S, labs)? Why? @ -None What meds were considered but not given or refused? Why? @ -None Did you discuss the management of the patient with other professionals (professionals i.e. , PA, SIGHTER, lab, RT, psych nurse, social contact worker, dry ice machine operator, teacher, corporate compliance officer, shoe parts caser)? Give summary @ -No Was smoking cessation discussed for >3mins.? @ -No Was critical care preformed (if so, how long)? @ -No Were there social determinants of health that impacted care today? How? (Homelessness, low income, unemployed, alcoholism, drug addiction, transportation, low edu. Level, literacy, decrease access to med. care, [place] [facility], rehab)? @ -No Was there de-escalation of care discussed even if they declined (Discuss DNR or withdrawal of care, Hospice)? DNR status @ -No What co-morbidities impacted this encounter? (DM, HTN, Smoking, COPD, CAD, Cancer, CVA, ARF, Chemo, Hep., AIDS, mental health diagnosis, sleep apnea, morbid obesity)? @ -None Was patient admitted / discharged? Hospital course, mention meds given and route, prescriptions, significant lab abnormalities, going to OR and other pertinent info. @ -Discharge. 74 open presenting after a fall. Patient is immediately activated as a code coag as she is on Plavix and fell and hit her head this morning. On my evaluation the patient she is resting company in the examination room in a chair no signs of distress. Noted to have a mild abrasion over the anterior nasal bridge. Neurologically intact. Right hand is tender to palpation with ecchymosis and mild edema located over the lateral dorsum of the hand. Range of motion is intact of the left upper extremity. Patient was offered pain medication and was declined. CT imaging is unremarkable. X-ray reveals a fracture of the fourth metacarpal. Patient is placed in a ulnar gutter splint and instructed to follow-up with security specialist. Case discussed with Dr. Ortiz Undiagnosed new problem with uncertain prognosis? @ -No Drug Therapy requiring intensive monitoring for toxicity (Heparin, Nitro, Insulin, Cardizem)? @ -No Were any procedures done? @ -Orthopedic splinting Diagnosis/symptom? @ -Metacarpal fracture, fall Acute, or Chronic, or Acute on Chronic? @ -Acute Uncomplicated (without systemic symptoms) or Complicated (systemic symptoms)? @ -Uncomplicated Side effects of treatment? @ -No Exacerbation, Progression, or Severe Exacerbation? @ -No Poses a threat to life or bodily function? How? (Chest pain, USA, PA, pneumonia, PE, COPD, DKA, ARF, appy, cholecystitis, CVA, Diverticulitis, Homicidal, Suicidal, threat to staff... and all critical care pts) @ -No Disposition Clinical Impression: Fall, Hand fracture, right Disposition: HOME SELF-CARE Condition: Good Instructions (If sedation given, give patient instructions): Hand Fracture (ED) Additional Instructions: Please return to the Emergency Department if symptoms worsen or any other concerns. Is patient prescribed a controlled substance at d/c from ED?: No Referrals: Ming Lacy DO [Primary Care Provider] - 1-2 days Margaret Santos [Doctor of Osteopathic Medicine] - 1-2 days Time of Disposition: 18:56
--- NOTE | 2024-10-07 17:52 | CT ---
EXAMINATION TYPE: CT brain cspine wo con, CT facial bones wo con CT DLP: 1055.2 combined mGycm, Automated exposure control for dose reduction was used. DATE OF EXAM: 10/07/2024 5:34 PM COMPARISON: CT brain 07/18/2024, CT Brain and cspine [place] 03/08/2019. CLINICAL INDICATION:Female, 74 years old with history of fall, on thinners; Pt c/o fall with right goldman nd injury and facial injury, pain TECHNIQUE: Brain: Multiple axial CT images of the brain were obtained without IV contrast. Cspine: Axial CT images from the skull base to the inferior aspect of T2 we obtained without intraven ous contrast. Coronal and sagittal reformatted images were also reviewed. Facial bones; axial CT images of the facial bones were obtained without contrast and soft tissue and bone windows. Coronal and sagittal reformatted images were also reviewed. FINDINGS: Brain: Extra-axial spaces: No evidence for hemorrhage. Redemonstration of the left middle cranial fossa CSF attenuating 4.0 x 2.5 cm arachnoid cyst. Ventricular system: Within normal limits Cerebral parenchyma: No acute intraparenchymal hemorrhage or mass effect. The crump-white junction is well differentiated. Nonspecific bilateral basal ganglia calcifications with left greater than right . Remote lacunar infarct within the left basal ganglia. Cerebellum: Unremarkable. Mass effect: No evidence of midline shift. Intracranial vasculature: Atherosclerotic calcifications of the intracranial vessels. Soft tissues: Normal. Calvarium/osseous structures: No depressed skull fracture. Benign hyperostosis frontalis noted. Paranasal sinuses and mastoid air cells: The mastoid air cells are clear. Minimal mucosal thickening of the maxillary sinuses. Aplasia of the right frontal sinus. Visualized orbits: Bilateral aphakia Cervical spine: Fracture: None. Osseous structures: Postsurgical with anterior approach into vertebral disc hardware at C4-C5 and C5- C6. Hardware appears intact with appropriate alignment. Multilevel anterior osteophytosis with disc s pace narrowing and endplate sclerosis of the lower cervical thoracic spine. Vertebral alignment: Degenerative grade 1 anterolisthesis of C3 on C4. Spinal canal/Neural Foramina: No evidence of significant spinal canal narrowing. Facet joint uncovert ebral joint arthropathy scattered throughout the cervical spine with varying degrees of neural forami nal stenosis. Neck soft tissues: Prevertebral soft tissues are within normal limits. Other: The airway is patent. The lung apices are clear. Moderate bilateral carotid bulb calcification s. Facial Bones: There is no evidence of fracture, subluxation, dislocation, or significant soft tissue swelling. Bila teral aphakia. The orbital contents are unremarkable.The temporal-mandibular joints appear symmetric. Minimal mucosal thickening in the bilateral maxillary sinuses. Aplasia of the right frontal sinus. T he remaining paranasal sinuses are clear. Mild nasal septal deviation to the right. IMPRESSION: 1. No acute intracranial process. 2. Removal left basal ganglia lacunar infarct. 3. Redemonstration of a left middle cranial fossa arachnoid cyst. 4. No evidence of cervical spine fracture. 5. Postsurgical changes of the cervical spine. Mild multilevel degenerative disc disease. 6. No acute facial bone fracture. [facility], , 10/07/2024 5:46 PM
--- NOTE | 2024-10-07 18:46 | XR ---
EXAMINATION TYPE: XR hand complete RT DATE OF EXAM: 10/07/2024 6:34 PM INDICATION: Patient age:Female; 74 years old; Reason for study: pain; PHH. pain COMPARISON: None TECHNIQUE: Frontal, lateral and oblique views of the right hand were obtained. FINDINGS: Acute minimally displaced oblique fracture involving the proximal shaft of the fourth metac arpal. No intra-articular extension. No dislocation. Gullwing appearance of the DIP joints of the fir st, fourth and fifth digits. To a lesser degree involving the third DIP joint. Mild soft tissue swell ing of the hand. Vascular sclerosis. IMPRESSION: 1. Acute minimally displaced oblique fracture of the proximal shaft of the fourth metacarpal. 2. Erosive osteoarthritic changes. [facility], , 10/07/2024 6:43 PM
[2024-10-07 20:03] VITALS: BP 157/65; PULSE 53; RESP 17; TEMP 98
== END 2024-10-07 20:03 | disposition home or self-care (01) ==
LOC: EC 16:50
DX: S62.314A Displaced fracture of base of fourth metacarpal bone, right hand, initial encounter for closed fracture (principal); Z86.73 Personal history of transient ischemic attack (TIA), and cerebral infarction without residual deficits; Z88.0 Allergy status to penicillin; Z88.2 Allergy status to sulfonamides; Z88.1 Allergy status to other antibiotic agents; Z88.8 Allergy status to other drugs, medicaments and biological substances; W18.39XA Other fall on same level, initial encounter
CPT/HCPCS: 29125; 70450; 70486; 72125; 99284